=== PATIENT | male | born 1945 | race Caucasian/White ===

== ENCOUNTER → 2016-09-04 | Outpatient (CLI) | payer OTHER ==
[~2016-09-04] MED LIST: LTR510 PO; NXM/40 PO; OXYC-57 PO
--- NOTE | 2016-09-04 11:15 | DIAGNOSTIC IMAGING REPORT ---
PET/CT HISTORY: Lymphoma LYMPHOMA TECHNIQUE: PET/CT was performed from the base of the skull through the pelvis following the intravenous administration of 15.4 mCi of F18-FDG. Non-contrast CT imaging was performed over the same range without breath-hold for attenuation correction of PET images and anatomic correlation, but not for primary interpretation as it is not of standard diagnostic quality. CT DOSE: 847.81 mGycm COMPARISON: None. FINDINGS: HEAD AND NECK: Several metabolically active nodes are present in the low cervical chains bilaterally. There is a 1 cm metabolically active node with SUV of 2.9 posterior to the right sternocleidomastoid musculature. Several smaller nodes are present in the mid to lower cervical chains bilaterally. A 12 mm nodule lower aspect of the right cervical chain has SUVs of up to 2.1. Smaller metabolically active nodes are present in the mid cervical chains bilaterally. Physiologic activity is identified within the salivary gland regions. CHEST: 12 mm metabolically active nodule right aortopulmonary window avid SUV of 2.1. Moderate bilateral axillary adenopathy. Maximum SUV in the left axillary region is 3.9 with 3.5 noted on the right. Maximum atiya dimension of the left axillary region is 2.0 cm with 1.8 cm on the right. Metabolically active nodes in the low axillary regions are also present. There is physiologic activity within the myocardium. ABDOMEN/PELVIS: Physiologic activity within liver spleen and pancreas. No significant retroperitoneal metabolically active atiya pathology. Bowel pattern is nonobstructive. Moderate adenopathy of the low right as well as left iliac chains. SUV characteristics of the right of 3.9 maximum and on the left 4.4 physiologic activity is identified within the urinary bladder. Inguinal regions show metabolic activity noted characteristics bilaterally. These are considered significant. On The right, metabolically active nodes measure to 2.5 cm. 2.6 cm nodes are identified on the left. MUSCULOSKELETAL: There is no FDG-avid or destructive bone lesion. IMPRESSION: 1. Findings consistent with metabolically active adenopathy involving the soft tissue neck, chest, axillary regions, low pelvic, and inguinal regions. 2. The appearance is consistent with that of diffuse metastatic disease. Electronically signed by: Triston Estrada M.D. 09/04/2016 11:13 AM Dictated Date/Time: 09/04/2016 11:01 AM
== END | disposition home or self-care (01) ==
LOC: C.PET 08:05
PROVIDERS: ATTEND Internal Medicine Hematology & Oncology
DX: C85.90 Non-Hodgkin lymphoma, unspecified, unspecified site (principal)

== ENCOUNTER → 2017-01-09 | Outpatient (CLI) | payer OTHER ==
[~2017-01-09] MED LIST changes: +OPTIRAY 320 IV PRN
--- NOTE | 2017-01-09 13:15 | DIAGNOSTIC IMAGING REPORT ---
CT SCAN OF THE CHEST WITH IV CONTRAST CLINICAL HISTORY: Lymphoma. COMPARISON STUDY: Chest x-ray dated 07/29/2010. PET/CT dated 09/04/2016. TECHNIQUE: Following the IV administration of 93 cc of Optiray 320, CT scan of the thorax was performed from the thoracic inlet to the upper abdomen. Images are reviewed in the axial, sagittal, and coronal planes. IV contrast was administered without complication. A dose lowering technique was utilized adhering to the principles of ALARA. CT DOSE: 1126.33 mGy.cm FINDINGS: Thyroid: Imaged portions of the thyroid gland are normal in size and attenuation. Thoracic aorta: There is mild atherosclerotic calcification of the thoracic aorta, which is normal in caliber and demonstrates standard 3-vessel arch anatomy. No dissection is seen. Heart: The heart is top normal in size and without pericardial effusion. The coronary arteries are densely calcified. The pulmonary trunk is normal in caliber. The pulmonary vessels are not well opacified. Lungs and pleural spaces: Evaluation of the lung parenchyma is significantly degraded by respiratory motion artifact. No airspace consolidation is seen typical for pneumonia. Trace pleural effusions are identified. Linear atelectasis versus scarring is present at the lung bases Peter the trachea and central airways are clear. Mediastinum: A mildly enlarged right paratracheal node is seen on image #110. This is almost completely fatty replaced and measures 1.2 cm in short axis. [place]: Clear. Axillae: Mildly enlarged bilateral axillary and subpectoral lymph nodes are similar to 09/04/2016 examination. The largest on the left as seen on image #119 and measures 2.2 x 1.7 cm. The largest on the right is subpectoral in location and measures 2.3 x 1.4 cm. Large nodes are seen but these are almost completely fatty replaced. Upper abdomen: There is a tiny hiatal hernia. A right upper pole renal cyst is partially imaged. The liver demonstrates diminished attenuation suggesting hepatic steatosis. The spleen is normal in size. Skeletal structures: The skeletal structures are osteopenic. No lytic or blastic bony lesions are seen. Advanced arthritic change is present in both shoulders. Calcified joint bodies are noted. There are numerous subacute right-sided rib fractures which are new from 09/04/2016. Degenerative change and hyperkyphosis are noted in the thoracic spine. Mild compression deformities are seen in the upper thoracic region. IMPRESSION: 1. No progressive adenopathy is identified in the thorax. 2. Mildly enlarged axillary and subpectoral lymph nodes as well as a mildly enlarged mediastinal lymph node have not appreciably changed from the 09/04/2016 PET examination. 3. Trace pleural effusions are identified. No airspace consolidation is seen typical for pneumonia. 4. There are numerous subacute right-sided rib fractures. These are new from 09/04/2016. 5. Additional findings as above. Electronically signed by: Irineo Vargas M.D. 01/09/2017 1:14 PM Dictated Date/Time: 01/09/2017 1:05 PM
--- NOTE | 2017-01-09 13:31 | DIAGNOSTIC IMAGING REPORT ---
ABD/PELVIS IV AND ORAL CONT HISTORY: [address] years-old Male CT lymphoma follow-up study. Subsequent treatment strategy. COMPARISON: CT chest of same day, PET/CT 09/04/2016. TECHNIQUE: Multiple axial CT images of the abdomen and pelvis was obtained following the intravenous administration of 93 mL Optiray 320. Oral contrast was also used. A dose lowering technique was used consistent with the principals of ALARA. FINDINGS: Subsegmental bibasilar atelectasis and/or scarring is noted, partially obscured by respiratory motion. There is no pneumoperitoneum identified. The imaged inferior cardiac chambers are moderately enlarged with coronary arterial calcifications. Mitral annular calcifications also noted. Nonspecific 5 mm low attenuating lesion is noted within the anterior right hepatic lobe on image 23 of the axial series which is unchanged from comparison and did not appear to be FDG avid, however may be below resolution in size for PET. Suggest a cyst or hemangioma. Spleen is unremarkable without stone [place]. There is mild to moderate pancreatic atrophy. Gallbladder is unremarkable. Probable cysts of the right kidney are noted, largest of which measures 3.5 cm. There is mild dilation or stranding stranding involving the mid left ureter without obstructing stone or mass is identified. Ureters are also noted in a somewhat medial course Smaller changes are seen in the right. Urinary bladder is unremarkable. Small fat filled left inguinal hernia noted. There are multiple phleboliths within the pelvis. Multiple enlarged periaortic, pericaval, iliac chain, pelvic sidewall and inguinal lymph nodes are present. Index right common iliac lymph node on image 271 measures 2.8 x 1.6 cm, previously measuring 2.5 x 1.5 cm. Index conglomerate right pelvic sidewall adenopathy on image 349 measures 5.5 x 1.9 cm, previously measuring 5.9 x 1.9 cm. Index right inguinal lymph node on image 440 measures 3.1 x 1.8 cm, previously 3.0 x 1.8 cm. These findings suggest stable disease. There is a small sliding-type hiatal hernia. There is no bowel obstruction. Sigmoid colon is tortuous. The appendix is air-filled and appears noninflamed. Soft tissues are unremarkable. The bones are mildly demineralized. Prior posterior decompression with interbody hope and screw fusion at L4-S1 with discectomy changes. No suspicious lytic or blastic bony lesions identified. IMPRESSION: 1. Persistent bulky periaortic, pericaval, iliac chain, pelvic sidewall and inguinal adenopathy redemonstrated with several index lymph nodes measured as above demonstrating no significant change from comparison PET/CT 09/04/2016 suggesting stable disease. 2. Mild prominence with surrounding inflammatory stranding surrounds the mid ureters in a symmetric fashion without obstructing stone or mass identified. Ureters are also somewhat medialized without sandhya hydronephrosis. These findings may reflect post-therapeutic changes with retroperitoneal fibrosis also in the differential. 3. No splenomegaly or suspicious osseous lesions identified. The above report was generated using voice recognition software. It may contain grammatical, syntax or spelling errors. Electronically signed by: Yoan Carrasco M.D. 01/09/2017 1:29 PM Dictated Date/Time: 01/09/2017 1:04 PM
== END | disposition home or self-care (01) ==
LOC: C.CTS 11:46
PROVIDERS: ATTEND Internal Medicine Hematology & Oncology
DX: C81.74 Other Hodgkin lymphoma, lymph nodes of axilla and upper limb (principal)

== ENCOUNTER → 2017-09-10 | Outpatient (CLI) | payer OTHER ==
[~2017-09-10] MED LIST changes: -OPTIRAY 320 IV PRN
--- NOTE | 2017-09-10 12:53 | DIAGNOSTIC IMAGING REPORT ---
PET/CT HISTORY: LYMPHOMA TECHNIQUE: PET/CT was performed from the base of the skull through the pelvis following the intravenous administration of 12.2 mCi of F18-FDG. Non-contrast CT imaging was performed over the same range without breath-hold for attenuation correction of PET images and anatomic correlation, but not for primary interpretation as it is not of standard diagnostic quality. CT DOSE: COMPARISON: PET CT 09/04/2016. Chest abdomen and pelvis CT 01/09/2017. FINDINGS: HEAD AND NECK: There again noted multiple mildly enlarged and FDG avid cervical lymph nodes. These are similar in size and number compared the prior study. However, these demonstrate slight increased FDG uptake. For comparative purposes an 11 mm right cervical lymph node demonstrates an SUV max of 3.4, previously demonstrating an SUV max of 2.0. CHEST: Multiple enlarged mediastinal, hilar, and axillary lymph nodes are similar in size. However, these demonstrate increased FDG uptake. The dominant 3.0 x 2.5 cm left axillary lymph node demonstrates an SUV max of 4.0, previously demonstrating an SUV max of 2.6. No suspicious pulmonary nodules. ABDOMEN/PELVIS: Below the diaphragm, tracer is distributed physiologically in the gastrointestinal and genitourinary tracts. Multiple enlarged retroperitoneal, pelvic, and inguinal lymph nodes are again noted. These are similar in size but the majorities demonstrate increased FDG uptake. Dominant right inguinal lymph node continues to measure 3.0 x 1.7 cm. However, this demonstrates an SUV max of 4.6, previously demonstrating an SUV max of 3.6. The dominant right pelvic sidewall lymph node is similar in size but also demonstrates increased FDG uptake measuring up to 5.8, previously measuring 5.6. MUSCULOSKELETAL: There is no FDG-avid or destructive bone lesion. IMPRESSION: Lymphadenopathy within the neck, chest, abdomen, and pelvis as described above which is overall similar in size compared to the prior study. However, this demonstrates increased FDG uptake consistent with worsening disease. Electronically signed by: Gelacio Galindo M.D. 09/10/2017 12:51 PM Dictated Date/Time: 09/10/2017 12:27 PM
== END | disposition home or self-care (01) ==
LOC: C.PET 08:27
PROVIDERS: ATTEND Internal Medicine Hematology & Oncology
DX: C81.74 Other Hodgkin lymphoma, lymph nodes of axilla and upper limb (principal)

== ENCOUNTER 2019-06-26 11:05 | Inpatient (IN) ==
--- NOTE | 2019-06-26 11:51 | XRay Report ---
XR chest 1V portable CLINICAL HISTORY: Dyspnea dyspnea COMPARISON STUDY: 07/29/2010 FINDINGS: Moderate increase in cardiac size. Prominent pulmonary vasculature. IMPRESSION: Developing congestive heart failure ACT 112: Negative or not required by law. The above report was generated using voice recognition software. It may contain grammatical, syntax or spelling errors. Electronically signed by: Triston Estrada M.D. 06/26/2019 11:50 AM
[2019-06-26 12:06] LABS: Basophils # (auto) 0.01 K/uL (0-0.2); Basophils % (auto) 0.2 %; Eosinophils # (auto) 0.11 K/uL (0-0.5); Eosinophils % (auto) 1.7 %; Immature Granulocytes # (auto) 0.03 K/uL (0.00-0.02); Immature Granulocytes % (auto) 0.5 %; Lymphocytes # (auto) 0.98 K/uL (1.2-3.4); Lymphocytes % (auto) 15.4 %; Mean Corpuscular Hgb Conc 36.4 g/dL (32-36); Mean Corpuscular Volume 90.7 fL (80-100); Monocytes # (auto) 0.78 K/uL (0.11-0.59); Monocytes % (auto) 12.3 %; Neutrophils # (auto) 4.44 K/uL (1.4-6.5); Neutrophils % (auto) 69.9 %; Platelet Count 293 K/uL (130-400); RDW Coefficient of Variation 14.8 % (11.5-14.5); RDW Standard Deviation 48.8 fL (36.4-46.3); Red Blood Count 3.64 M/uL (4.7-6.1); White Blood Count 6.35 K/uL (4.8-10.8)
[2019-06-26 12:16] LABS: INR 1.1 (0.9-1.1); Partial Thromboplastin Ratio 1.1; Partial Thromboplastin Time 29.6 Seconds (21.0-31.0); Prothrombin Time 11.2 Seconds (9.0-12.0)
[2019-06-26 12:27] LABS: Alanine Aminotransferase 21 U/L (12-78); Albumin Level 2.7 gm/dl (3.4-5.0); BUN Creatinine Ratio 12.3 (10-20); Blood Urea Nitrogen 11 mg/dl (7-18); Calcium 8.2 mg/dl (8.5-10.1); Carbon Dioxide 24 mmol/L (21-32); Chloride 96 mmol/L (98-107); Creatinine Clr Calc Pharmacy 75.1 ml/min; Est GFR (African American) 98.5; Glucose 92 mg/dl (70-99)
[2019-06-26 12:28] LABS: Albumin Globulin Ratio 0.4 (0.9-2); Alkaline Phosphatase 54 U/L (45-117); Bilirubin,Total 0.9 mg/dl (0.2-1); Total Protein 9.7 gm/dl (6.4-8.2); Troponin I < 0.015 ng/ml (0-0.045)
[2019-06-26 12:41] LABS: Appearance Urine Clear (Clear); Bilirubin Urine Negative (Negative); Blood Urine Negative (Negative); Color Urine Dark Yellow; Glucose Urine UA Negative (Negative); Ketones Urine Negative (Negative); Leukocyte Esterase Urine Negative (Negative); Nitrite Urine Negative (Negative); Protein Urine Negative (Negative); Specific Gravity Urine 1.015 (1.000-1.030); Urobilinogen Urine Negative (Negative)
[2019-06-26 13:12] LABS: Aspartate Aminotransferase 24 U/L (15-37); Potassium 4.4 mmol/L (3.5-5.1); Sodium 126 mmol/L (136-145)
--- NOTE | 2019-06-26 13:42 | History & Physical Report ---
Date of Service June 26, 2019 Assessment & Plan (1) Fungal pneumonia: Patient presents with history of approximately 4-6 weeks of cough, As per pulmonary clinic note, patient has been having chronic cough symptoms, recurrent transient infiltrate noted on chest imaging since fall [address] chest shows bilateral pneumonia/lung consolidation with mucous plugging, left bronchus narrowing Sputum culture positive for zygomete Sent for inpatient admission for further treatment possible IV antifungal and requirement for bronchoscopy Patient will need bronchoscopy with a repeat sputum culture to confirm diagnosis Will be admitted to medical telemetry Pulmonology consulted Patient will be ordered n.p.o. past midnight Infectious disease consulted for recommendation for antifungal-patient will be started on amphotericin Consult pharmacy to dose And will need telemetry monitoring Daily EKG to assess QTC B-cell lymphoma: Follows with hematology oncology Dr. Mora Has not received any chemo treatment Current blood work stable Hypertension: Continue Norvasc CODE STATUS: DNR/DNI: Discussed with patient and his , feels strongly against life support and resuscitation DVT prophylaxis: SCD and teds, patient is encouraged to ambulate Disposition: Admit to medical telemetry unit, Expected to be discharged home when medically stable History of Present Illness Chief Complaint: Cough for last 2 months Primary Care Provider: Charli Flowers This is a 73-year-old male with past medical history of hypertension, COPD, who has been followed at [facility] pulmonology clinic for ongoing productive cough which has been going on since April last year Patient was treated with multiple antibiotics including Levaquin, with no improvement or symptoms Had CT chest without contrast done on 06/13/2019: Impression : Limited exam without IV contrast. Bilateral peribronchial thickening and endobronchial mucous plugs. Large bilateral pulmonary consolidation involving the right middle and lower lobe and left lower lobe. Most likely pneumonia. Multiple scattered centrilobular groundglass nodules throughout the lungs most significantly in the lower lobes, favoring additional foci of infection. 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 Patient was asked to come to [facility] for hospital admission , will need IV antifungal and pulmonology/bronchoscopy evaluation Patient seen at bedside, denies of any shortness of breath, no orthopnea, has ongoing nonproductive cough, He does not feel sick, no recent weight change, no night sweat Has been dealing with nonproductive cough which started as common cold since April Did not had any fever chills in the past several months Patient is diagnosed with the B cell lymphoma, not had any chemo treatments Allergies Allergy/AdvReac Type Severity Reaction Status Date / Time No Known Allergies Allergy Unverified 06/26/19 13:59 Home Medications Home Medications Medication Instructions Recorded Confirmed Type albuterol sulfate [ProAir 1 inh INHALATION Q4H PRN 06/26/19 06/26/19 History RespiClick] amlodipine 5 mg PO BID 06/26/19 06/26/19 History fluticasone furoate-vilanterol 1 inh INHALATION BID 06/26/19 06/26/19 History [Breo Ellipta] Past Med/Surg History Medical History No pertinent past medical history Surgical History No pertinent past surgical history Family History Other Family history non-contributory Social History Preferred Language: Faroese Feels Safe at Home: Yes Smoking Status: Never smoker Review of Systems Review of Systems: All systems reviewed & are unremarkable except as noted in HPI & below Constitutional: no fever, no chills, no fatigue and no anorexia Respiratory: + cough, + chest congestion, + sputum production and + wheezing; no pain on inspiration and no pain with cough Physical Exam Constitutional: WD/WN, vitals as above + obese Eyes: PERRL, conjunctivae normal, anicteric sclerae ENMT: external ear and nose normal, oropharynx normal Neck: trachea midline, no thyromegaly Respiratory: normal respiratory effort and + cough Auscultation: + crackles, + rales, + rhonchi and + wheezes Cardiovascular: RRR, no murmur, no edema Gastrointestinal (Abdomen): normal bowel sounds, soft, nontender, no hepatosplenomegaly Musculoskeletal: no cyanosis or clubbing, extremities motor strength 5/5 Skin: no rashes, warm and dry Neurologic: PERRL, EOMI, accommodation nl, no face palsy, no dysarthria Psychiatric: A+Ox3, euthymic affect Results & Data Vital Signs (Past 12 Hours) Vital Signs Temp Pulse Resp BP Pulse Ox 06/26/19 13:00 82 22 143/74 H 95 06/26/19 12:51 81 21 147/81 H 96 06/26/19 12:30 84 21 147/81 H 93 06/26/19 12:28 95 06/26/19 12:19 84 19 160/75 H 93 06/26/19 11:21 36.3 C L 88 20 143/84 H 93
[2019-06-26] MEDS ORDERED: SODIUM CHLORIDE 0.9% 1000ML 1,000 ML IV SCH (15:00)
[2019-06-26] MEDS ORDERED: [UNRECOGNIZED DRUG - OTHER] IV SCH (15:03)
[2019-06-26] MEDS ORDERED: IOVERSOL 100ml IV PRN (15:33)
--- NOTE | 2019-06-26 15:41 | CT Scan Report ---
CT chest w con CT DOSE: 459.61 mGy.cm HISTORY: Pneumonia bilateral pneumonia TECHNIQUE: Multiaxial CT images of the chest were performed following the intravenous administration of contrast. A dose lowering technique was utilized adhering to the principles of ALARA. COMPARISON: 02/14/2018 FINDINGS: Scattered adenopathy unchanged from the prior exam. This is consistent with the patient's k nown history of lymphoma. Bulk of the nodes are in the mid to high axillary regions bilaterally. Several smaller nodes are identified in the mid mediastinal region also unchanged. There are findings of bibasilar parenchymal infiltrative changes. Heart is moderately enlarged. Pulmo nary vasculature is prominent. IMPRESSION: 1. Bibasilar parenchymal infiltrates moderately progressive from the prior study.. 2. Mild increase in cardiac size as well as prominence of pulmonary vasculature consistent with pulmo nary vascular congestion. 3. Adenopathy within the axillary and mediastinal regions considered generally stable from the prior exam. ACT 112: Negative or not required by law. The above report was generated using voice recognition software. It may contain grammatical, syntax or spelling errors. Electronically signed by: Triston Estrada M.D. 06/26/2019 3:40 PM
[2019-06-26] MEDS ORDERED: POLYETHYLENE (MIRALAX) 17 GM PACK PO PRN (15:53)
[2019-06-26] MEDS ORDERED: ACETAMINOPHEN 325 MG TAB PO PRN (15:53)
[2019-06-26] MEDS ORDERED: ALUMINUM/MAGNESIUM SUSP 30 ML UDC PO PRN (15:53)
[2019-06-26] MEDS ORDERED: MAGNESIUM HYDROXIDE SUSP 30 ML UDC PO PRN (15:53)
[2019-06-26] MEDS ORDERED: DEXTROSE 5% IV ONE (16:00)
[2019-06-26] MEDS ORDERED: AMBISOME IV ONE (16:00)
[2019-06-26] MEDS: ALBUT/IPRATROP 3MG/0.5MG NEB 3 ML VIAL NEB SCH ×3 (16:13→22:57)
[2019-06-26] MEDS ORDERED: ALBUTEROL HFA 8 GM INHALER INH PRN (16:23)
--- NOTE | 2019-06-26 16:34 | Pulmonary Consultation ---
Date of Consultation June 26, 2019 Assessment & Plan (1) Mucus plugging of bronchi: CT scan completed today at [facility] does not show any significant mucus plugging Patient denies any significant sputum production Would order flutter valve and Mucinex and encourage ambulation Repeat chest x-ray in the morning Follow conservatively No indication for bronchoscopy at this time but will have Dr. Jackson see the patient in the morning (2) Fungal pneumonia: Patient contacted yesterday by [facility] with sputum growing zygomete on preliminary culture Patient admitted for IV antibiotics Dr. Renee has been consulted * Patient to be empirically started on amphotericin (3) Asthma: Patient oxygenating well on room air No bronchospasm on exam Patient with no acute complaints Continue with Brio Vickie Follow-up with [facility] pulmonology on discharge Thank you for including us in the care of this patient. Please refer to Dr. Jackson's addendum and corrections for further recommendations We will follow along with you at this time Supervising Physician Co-Signing Physician Notes Imaging reviewed. Case discussed with NOAH duffy. Patient's current CT scan does not demonstrate any significant opacity or significant mucus plugging which would necessitate bronchoscopy. I do not have access to the patient's outpatient fungal cultures but I am not suspicious the patient has a fungal pneumonia I would definitely not recommend treatment with amphotericin. I am not sure the patient meets criteria for inpatient admission at this point time. He has been seen by the stockroom inventory clerk previously apparently through the [employer] system and continued outpatient follow-up with them is recommended. History of Present Illness Attending Physician: Di Aguirre MD History of Present Illness Attending: Dr. Jackson Patient with PMH of lymphoma following with Dr. Loredo, mild persistent asthma on Breo Ellipta, Hx CAD with stent 20 years ago, htn on Amlodipine, GERD, chronic cough, hyperlipidemia. Patient follows with [facility] Pulmonology and was most recently seen by CAITLIN Newman. Mr. Hansen was last seen in the OP clinic 06/11/[address] Chest revealing transient RML/RLL infiltrate as well as some mucous plugging. Patient was started on Levofloxacin 750mg daily for 10 days and a sputum culture was collected. Viral panel was negative and patient was scheduled for video swallow exam. He demonstrated some aspiration of the barium and was being scheduled for bronchoscopy in [place] with Dr. Silvestre. Yesterday SHAILESH He was called with a critical lab value stating that culture grew Zygomete with preliminary read. SHAILESH He requested an urgent ID consult. Dr. Terri Pierce MD providfed the following response to the inquiry: "If patient is stable it is unlikely that he has mucormycosis as it is a rapidly progressive infection .The pneumonia can cause infarction and necrosis and the infection can spread and cause massive hemoptysis.Dignosis is by organism in tissue by histopathology and culture confirmation .Of note agents of mucormycosis can colonize the airways and can be contaminants.Isolation of this organism does not always imply infection .The treatment is surgical debridement" The patient was then contacted and told to report to [facility] [place] for IV abx and further evaluation. The patient agreed to be admitted to [facility] but did not want to travel to [place] as he lives in [place], [place]. Aside form the patients chronic non-productive cough, the patient has no complaints. He has never been a smoker. He can ambulate more than 100 ft on a flat surface without difficulty, has no difficulty with climbing stairs. He served in the [employer] from 1965 to 1969 in [place] and then retired from the [employer]. He then retired from the [employer] and has been retired for several years. 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 The patient denies thromboembolic disease, is in remission from Lymphoma, has no fever or chills, denies chest pain, no back pain, no LE edema. He has no acute complaints. Vaccination history includes: Pneumococcal vaccination of 03/21/2017 He denies any other vaccination since being in the Allergies Allergy/AdvReac Type Severity Reaction Status Date / Time No Known Allergies Allergy Unverified 06/26/19 13:59 Home Medications Home Medications Medication Instructions Recorded Confirmed Type albuterol sulfate [ProAir 1 inh INHALATION Q4H PRN 06/26/19 06/26/19 History RespiClick] amlodipine 5 mg PO BID 06/26/19 06/26/19 History fluticasone furoate-vilanterol 1 inh INHALATION BID 06/26/19 06/26/19 History [Patric Johnston] Patient History Medical History (Updated 06/26/19 @ 16:53 by Irineo Duffy PA-C) Asthma Mucus plugging of bronchi No pertinent past medical history Surgical History No pertinent past surgical history Family History Other Family history non-contributory Social History Preferred Language: Welsh Feels Safe at Home: Yes Smoking Status: Never smoker Review of Systems Review of Systems: All systems reviewed & are unremarkable except as noted in HPI & below Physical Exam Physical Exam: GENERAL : No acute distress EYES: No icterus, gaze conjugate NOSE: No evidence of epistaxis MOUTH: No lesions or candidiasis NECK: Supple LUNGS: CTA B/L, no wheezes, rales or rhonchi HEART: Regular, rate controlled ABDOMEN: Soft, NT, ND, BS Present EXTREMITIES: No LE edema, pedal pulses intact NEURO: A&OX3 Results & Data ([facility]) Vital Signs (Past 12 Hours) Vital Signs Temp Pulse Pulse Resp BP BP Pulse Ox 06/26/19 16:14 86 18 91 06/26/19 15:48 36.5 C 84 20 167/91 H 96 06/26/19 15:07 80 20 179/81 H 97 06/26/19 13:30 78 19 154/73 H 95 06/26/19 13:00 82 22 143/74 H 95 06/26/19 12:51 81 21 147/81 H 96 06/26/19 12:30 84 21 147/81 H 93 06/26/19 12:28 95 06/26/19 12:19 84 19 160/75 H 93 06/26/19 11:21 36.3 C L 88 20 143/84 H 93 Laboratory Results 06/26/19 11:52 06/26/19 11:52 INR 1.1 (0.9-1.1) 06/26/19 11:[address] chest w con 06/26/2019 CT DOSE: 459.61 mGy.cm HISTORY: Pneumonia bilateral pneumonia TECHNIQUE: Multiaxial CT images of the chest were performed following the intravenous administration of contrast. A dose lowering technique was utilized adhering to the principles of ALARA. COMPARISON: 02/14/2018 FINDINGS: Scattered adenopathy unchanged from the prior exam. This is consistent with the patient's known history of lymphoma. Bulk of the nodes are in the mid to high axillary regions bilaterally. Several smaller nodes are identified in the mid mediastinal region also unchanged. There are findings of bibasilar parenchymal infiltrative changes. Heart is moderately enlarged. Pulmonary vasculature is prominent. IMPRESSION: 1. Bibasilar parenchymal infiltrates moderately progressive from the prior study.. 2. Mild increase in cardiac size as well as prominence of pulmonary vasculature consistent with pulmonary vascular congestion. 3. Adenopathy within the axillary and mediastinal regions considered generally stable from the prior exam. ACT 112: Negative or not required by law. The above report was generated using voice recognition software. It may contain grammatical, syntax or spelling errors. Electronically signed by: Triston Estrada M.D. 06/26/2019 3:40 PM FL video swallow 06/24/2019 HISTORY: SUSPECTED ASPIRATION PNEUMONIA TECHNIQUE: Video fluoroscopic evaluation of swallowing was performed in the AP and lateral projections by the speech pathology staff. The patient is fed nectar-thick and thin liquid barium, a barium coated wafer, and barium pudding. FLUOROSCOPY TIME: 2.4 minutes. A cine loop submitted. COMPARISON STUDY: None. FINDINGS: There is normal hyoid excursion and epiglottic deflection. A few episodes of aspiration with the thin liquid barium. No aspiration identified the nectar thick liquid barium, barium pudding, or barium coated cracker. Mild hypopharyngeal residue with the thicker barium consistencies. IMPRESSION: 1. A few episodes of aspiration with the thin liquid barium only. 2. Please see the speech pathologist report for detailed findings and recommendations. ACT 112: Negative or not required by law. Electronically signed by: Gelacio Galindo M.D. 06/24/2019 2:28 PM PG Care Time/CCT Total # of Minutes Spent Total Time Spent with Patient: Total time spent is greater than 50% in coordination of care (as documented) at patient's floor/unit and/or counseling patient: [place] [address] Initial Inpt Care Lvl 3 Patient Type New Medical Decision Making Low Complexity Diagnoses Mucus plugging of bronchi J98.09 Fungal pneumonia B49; J17 Asthma J45.909
--- NOTE | 2019-06-26 17:26 | Hospitalist Progress Note ---
Date of Service June 26, 2019 Assessment & Plan Admission and Anticipated Discharge Date Admission Date: June 26, 2019 Subjective Attending addendum: Appreciate input from pulmonology, CT chest with contrast done today shows no evidence of mucous plugging, patient does not need any bronchoscopy evaluation Discussed with Dr. Jcakson, patient does not appear to have active fungal infection, Does not have any fever chills normal white count Recommends to discontinue amphotericin B-/not need any antifungal treatment Continue respiratory support/pulmonary toileting Will need outpatient follow-up with pulmonology for elective bronchoscopy Di Aguirre MD Results & Data ([facility]) Vital Signs (Past 12 Hours) Vital Signs Temp Pulse Pulse Resp BP BP Pulse Ox 06/26/19 16:14 86 18 91 06/26/19 15:48 36.5 C 84 20 167/91 H 96 06/26/19 15:07 80 20 179/81 H 97 06/26/19 13:30 78 19 154/73 H 95 06/26/19 13:00 82 22 143/74 H 95 06/26/19 12:51 81 21 147/81 H 96 06/26/19 12:30 84 21 147/81 H 93 06/26/19 12:28 95 06/26/19 12:19 84 19 160/75 H 93 06/26/19 11:21 36.3 C L 88 20 143/84 H 93
--- NOTE | 2019-06-26 19:02 | Emergency Department Note ---
Entered by Vamsi Goode acting as a scribe for ED Provider Note CHIEF COMPLAINT: Cough HISTORY OF PRESENT ILLNESS: The patient is a 73 year old male who presents to the Emergency Room with complaints of an intermittent cough starting a couple weeks ago. The patient states he has been fighting a cold for two months. He states he has been having a lot of phlegm. He states he was seen in the [facility] clinic last week and had a culture done of his sputum. He notes his sputum was yellow. He states he was told he had a viral infection and needed to go to the ED. He states he has been having SOB for a while. He notes he had a swallowing study done recently at [facility]. He states he has not brought up a lot of phlegm in a while. He states he is not taking antibiotics right now. Pt denies LOC, headache, fevers, chills, diaphoresis, leg swelling, visual changes, neck pain, chest pain, breathing difficulties, nausea, vomiting, abdominal pain, back pain, melena, hematochezia, urinary symptoms, numbness, weakness, lymphadenopathy, rash, or other complaints. REVIEW OF SYSTEMS: See HPI for pertinent positives and negatives. A total of ten systems were reviewed and were otherwise negative. PMHx/PSHx: No pertinent past medical history SOCIAL HISTORY: Patient lives at home. PHYSICAL EXAM: GENERAL: Awake, alert, well-appearing, in no distress HENT: Normocephalic, atraumatic. Oropharynx unremarkable. EYES: PERRL. Normal conjunctiva. Sclera non-icteric. NECK: Inspection normal. Non-tender. Supple. No nuchal rigidity. FROM. No masses. RESPIRATORY: Clear to auscultation. No wheezes. Normal respiratory effort. Rales and rhonchi on the right. CARDIAC: Normal rate. Normal rhythm. No murmurs. No rubs. Extremities warm and well perfused. Pulses equal. No JVD. GI: Soft, non-distended. No tenderness to palpation. No rebound or guarding. No masses. RECTAL: Deferred. MUSCULOSKELETAL: Atraumatic. Chest examination reveals no tenderness. The back is symmetrical on inspection without obvious abnormality. There is no CVA tenderness to palpation. No joint edema. LOWER EXTREMITIES: Calves are equal size bilaterally and non-tender. Trace edema. No discoloration. NEURO: Normal sensorium. No sensory or motor deficits noted. SKIN: No rash or jaundice noted. EMERGENCY DEPARTMENT COURSE: 1157: Past medical records reviewed. The patient was evaluated in room B9, and a complete history and physical examination were performed. 1211: [facility] records were reviewed. The sputum culture is growing zygomyces. 1214: I spoke with Dr. Timothy Orellana. We will notify her once we do the admission. 1331: I am trying to reach infectious disease. 1339: I discussed the patient's case with Dr. Timothy Orellana. She will evaluate the patient for further management. She states if we are unable to get in touch with Dr. Renee here, she will consult with infectious disease in [place]. 1408: I reevaluated the patient. Dr. Aguirre is in the room. 1420: I spoke with Dr. Renee - Infectious Disease. He recommends starting the patient with amphotericin. MEDICAL DECISION MAKING: The patient presented to the emergency department because of pulmonary symptoms. He had an outpatient culture that was concerning for a fungal infection. Differential includes fungal pneumonia, fungal colonization, bacterial pneumonia, CHF, bronchitis, as well as others. Hemodynamically the patient was stable. He notes months of symptoms that did not respond to antibiotics. His culture does reveal a fungal infection and chest x-ray does show some increased markings in the right base. This is concerning that he may be dealing with a fungal pneumonia. I discussed the case with the [facility] hospitalist Dr. Aguirre as well as infectious disease Dr. Renee. Given the culture results he will need amphotericin and pulmonary consultation. Pharmacy was involved with this. The patient was evaluated by internal medicine in the ER and admitted for further management. IMPRESSION: Fungal pneumonia PLAN: Admitted The scribe's documentation has been prepared under my direction and personally reviewed by me in its entirety. I confirm that the note above accurately reflect s all work, treatment, procedures, and medical decision making performed by me. Impression & Plan Fungal pneumonia Past Med/Surg History Medical History (Updated 06/26/19 @ 16:53 by Irineo Duffy PA-C) Asthma Mucus plugging of bronchi No pertinent past medical history Surgical History No pertinent past surgical history Family History Other Family history non-contributory Social History Preferred Language: Ecuadorean Communication Ability: Effective Millinery Copyist Required: No Beliefs That Will Affect Care: None Current Living Situation: Spouse Other Information That Helps Us Care for You: No Feels Safe at Home: Yes Safety Concerns: Feels Safe At This Time Smoking Status: Never smoker Hx Alcohol Use: Yes Alcohol type: beer Hx Substance Use: No Results & Data Vital Signs Vital Signs - 24 hr 06/26/19 11:21 06/26/19 12:19 06/26/19 12:28 Temperature 36.3 C L Temperature Source Oral Pulse Rate 88 84 Pulse Rate from SpO2 Sensor 84 Respiratory Rate 20 19 Respiratory Effort / Characteristics Non-Labored Spontaneous Respiratory Depth Normal Blood Pressure 143/84 H 160/75 H Blood Pressure Mean 103 111 Blood Pressure Position Sitting Pulse Oximetry 93 93 95 Oxygen Delivery Method Room Air Room Air Sepsis Recent Fever Within 48 Hours No Sepsis New/Unexplained Change in Mental Status No Sepsis Action Taken by Nursing No Action Required 06/26/19 12:30 06/26/19 12:51 06/26/19 13:00 Temperature Temperature Source Pulse Rate 84 81 82 Pulse Rate from SpO2 Sensor 84 81 82 Respiratory Rate 21 21 22 Respiratory Effort / Characteristics Respiratory Depth Blood Pressure 147/81 H 147/81 H 143/74 H Blood Pressure Mean 105 105 112 Blood Pressure Position Pulse Oximetry 93 96 95 Oxygen Delivery Method Sepsis Recent Fever Within 48 Hours Sepsis New/Unexplained Change in Mental Status Sepsis Action Taken by Nursing 06/26/19 13:30 Temperature Temperature Source Pulse Rate 78 Pulse Rate from SpO2 Sensor 79 Respiratory Rate 19 Respiratory Effort / Characteristics Respiratory Depth Blood Pressure 154/73 H Blood Pressure Mean 108 Blood Pressure Position Pulse Oximetry 95 Oxygen Delivery Method Sepsis Recent Fever Within 48 Hours Sepsis New/Unexplained Change in Mental Status Sepsis Action Taken by Prison Medications Current Medication List: was personally reviewed by me Laboratory Data Attestation: I reviewed the patient's lab results. Result diagrams: 06/26/19 11:52 06/26/19 11:52 Lab Results 06/26/19 06/26/19 06/26/19 Range/Units 11:52 11:52 11:52 WBC 6.35 (4.8-10.8) K/uL RBC 3.64 L (4.7-6.1) M/uL Hgb 12.0 L (14.0-18.0) g/dL Hct 33.0 L (42-52) % MCV 90.7 (80-100) fL MCH 33.0 (25-34) pg MCHC 36.4 H (32-36) g/dL RDW Std Deviation 48.8 H (36.4-46.3) fL RDW Coeff of Gucci 14.8 H (11.5-14.5) % Plt Count 293 (130-400) K/uL MPV 8.0 (7.4-10.4) fL Immature Gran % (Auto) 0.5 % Neut % (Auto) 69.9 % Lymph % (Auto) 15.4 % Rock % (Auto) 12.3 % Eos % (Auto) 1.7 % Baso % (Auto) 0.2 % Immature Gran # (Auto) 0.03 H (0.00-0.02) K/uL Neut # (Auto) 4.44 (1.4-6.5) K/uL Lymph # (Auto) 0.98 L (1.2-3.4) K/uL Rock # (Auto) 0.78 H (0.11-0.59) K/uL Eos # (Auto) 0.11 (0-0.5) K/uL Baso # (Auto) 0.01 (0-0.2) K/uL PT 11.2 (9.0-12.0) Seconds INR 1.1 (0.9-1.1) APTT 29.6 (21.0-31.0) Seconds PTT Ratio 1.1 Sodium 126 L (136-145) mmol/L Potassium 4.4 (3.5-5.1) mmol/L Chloride 96 L (98-107) mmol/L Carbon Dioxide 24 (21-32) mmol/L Anion Gap 6.0 (3-11) BUN 11 (7-18) mg/dl Creatinine 0.90 (0.6-1.4) mg/dl Est Cr Clr Drug Dosing 75.1 ml/min Est GFR ( Amer) 98.5 Est GFR (Non-Af Amer) 85.0 BUN/Creatinine Ratio 12.3 (10-20) Glucose 92 (70-99) mg/dl Calcium 8.2 L (8.5-10.1) mg/dl Total Bilirubin 0.9 (0.2-1) mg/dl AST 24 (15-37) U/L ALT 21 (12-78) U/L Alkaline Phosphatase 54 (45-117) U/L Troponin I < 0.015 (0-0.045) ng/ml Total Protein 9.7 H (6.4-8.2) gm/dl Albumin 2.7 L (3.4-5.0) gm/dl Globulin 7.0 H (2.5-4.0) gm/dl Albumin/Globulin Ratio 0.4 L (0.9-2) Urine Color Urine Appearance (Clear) Urine pH (4.5-7.5) Ur Specific [place] (1.000-1.030) Urine Protein (Negative) Urine Glucose (UA) (Negative) Urine Ketones (Negative) Urine Blood (Negative) Urine Nitrite (Negative) Urine Bilirubin (Negative) Urine Urobilinogen (Negative) Ur Leukocyte Esterase (Negative) 06/26/19 Range/Units 12:20 WBC (4.8-10.8) K/uL RBC (4.7-6.1) M/uL Hgb (14.0-18.0) g/dL Hct (42-52) % MCV (80-100) fL MCH (25-34) pg MCHC (32-36) g/dL RDW Std Deviation (36.4-46.3) fL RDW Coeff of Gucci (11.5-14.5) % Plt Count (130-400) K/uL MPV (7.4-10.4) fL Immature Gran % (Auto) % Neut % (Auto) % Lymph % (Auto) % Rock % (Auto) % Eos % (Auto) % Baso % (Auto) % Immature Gran # (Auto) (0.00-0.02) K/uL Neut # (Auto) (1.4-6.5) K/uL Lymph # (Auto) (1.2-3.4) K/uL Rock # (Auto) (0.11-0.59) K/uL Eos # (Auto) (0-0.5) K/uL Baso # (Auto) (0-0.2) K/uL PT (9.0-12.0) Seconds INR (0.9-1.1) APTT (21.0-31.0) Seconds PTT Ratio Sodium (136-145) mmol/L Potassium (3.5-5.1) mmol/L Chloride (98-107) mmol/L Carbon Dioxide (21-32) mmol/L Anion Gap (3-11) BUN (7-18) mg/dl Creatinine (0.6-1.4) mg/dl Est Cr Clr Drug Dosing ml/min Est GFR ( Amer) Est GFR (Non-Af Amer) BUN/Creatinine Ratio (10-20) Glucose (70-99) mg/dl Calcium (8.5-10.1) mg/dl Total Bilirubin (0.2-1) mg/dl AST (15-37) U/L ALT (12-78) U/L Alkaline Phosphatase (45-117) U/L Troponin I (0-0.045) ng/ml Total Protein (6.4-8.2) gm/dl Albumin (3.4-5.0) gm/dl Globulin (2.5-4.0) gm/dl Albumin/Globulin Ratio (0.9-2) Urine Color Dark Yellow Urine Appearance Clear (Clear) Urine pH 7.0 (4.5-7.5) Ur Specific [place] 1.015 (1.000-1.030) Urine Protein Negative (Negative) Urine Glucose (UA) Negative (Negative) Urine Ketones Negative (Negative) Urine Blood Negative (Negative) Urine Nitrite Negative (Negative) Urine Bilirubin Negative (Negative) Urine Urobilinogen Negative (Negative) Ur Leukocyte Esterase Negative (Negative) Administered Medications Albuterol (Duoneb) 3 ml NEB Q4R VERONIKA Stop: 07/26/19 14:59 Last Admin: 06/26/19 16:13 Dose: 3 ml Documented by: [id number] Sodium Chloride (Nss 1000ml) 1,000 mls @ 100 mls/hr IV .Q10H VERONIKA Stop: 06/27/19 00:59 Last Admin: 06/26/19 16:33 Dose: 100 mls/hr Documented by: [id number] Ioversol (Optiray 320 100ml) 94 ml IV ONCE PRN PRN Reason: Interaction Checking Stop: 06/30/19 15:32 Last Admin: 06/26/19 15:33 Dose: 94 ml Documented by: [id number] Discontinued Medications Amphotericin B 400 mg/ (Dextrose) 350 mls @ 125 mls/hr IV TODAY@1600 ONE; Pr otocol Stop: 06/26/19 18:47 Last Admin: 06/26/19 16:45 Dose: Not Given Documented by: [id number] Imaging Data Radiologist's Impression: Radiology results as stated below per my review and the radiologist's interpretation: XR chest 1V portable CLINICAL HISTORY: Dyspnea dyspnea COMPARISON STUDY: 07/29/2010 FINDINGS: Moderate increase in cardiac size. Prominent pulmonary vasculature. IMPRESSION: Developing congestive heart failure ACT 112: Negative or not required by law. The above report was generated using voice recognition software. It may contain grammatical, syntax or spelling errors. Electronically signed by: Triston Estrada M.D. 06/26/2019 11:50 AM ECG Data Attestation: I personally reviewed and interpreted this ECG as follows: Indication: + chest pain Rate (beats per minute): 81 Rhythm: normal sinus ECG Intervals/blocks: + Normal QRS ECG [place]: + Normal ECG ST segments: no ST depression and no ST elevation ECG Findings: no PACs and no PVCs Blood Pressure Blood Pressure Findings: Elevated blood pressure Blood Pressure Disposition: further management by hospitalist Discharge Plan Visit Data *Final* Discharge Date/Time: 06/26/19 14:52 Chief Complaint: Infection Stated Complaint: LUNG INFECTION ED Provider: Felix Viveros Discharge Problem: Fungal pneumonia Patient Disposition: Admitted As Inpatient Discharge Instructions Interventions: ED Discharge Assessment Last Done: 06/26/19 14:52 The scribe's documentation has been prepared under my direction and personally reviewed by me in its entirety. I confirm that the note above accurately reflects all work, treatment, procedures, and medical decision making performed by me.
[2019-06-26] MEDS: guaiFENesin 600 MG TABCR PO SCH ×2 (19:59→21:42)
[2019-06-26 20:36] LABS: BUN Creatinine Ratio 11.8 (10-20); Creatinine Clr Calc Pharmacy 64.7 ml/min; Est GFR (African American) 80.9; Est GFR (Non-African American) 69.8; Potassium 4.2 mmol/L (3.5-5.1)
[2019-06-26] MEDS: FLUTICASONE/VILANTEROL 200/25MCG 14 PUFFS/INHALER INH SCH (21:43)
[2019-06-26] MEDS: AMLODIPINE BESYLATE 5 MG TAB PO SCH (21:44)
[2019-06-27] MEDS: ALBUT/IPRATROP 3MG/0.5MG NEB 3 ML VIAL NEB SCH ×4 (03:26→15:25)
--- NOTE | 2019-06-27 06:03 | Electrocardiogram Report ---
Test Reason : Blood Pressure : / mmHG Vent. Rate : 081 BPM Atrial Rate : 081 BPM P-R Int : 134 ms QRS Dur : 080 ms QT Int : 378 ms P-R-T Axes : 014 058 059 degrees QTc Int : 439 ms Poor data quality, interpretation may be adversely affected Normal sinus rhythm Normal ECG When compared with ECG of 21-JUL-2010 10:12, Premature atrial complexes are no longer Present Confirmed by Rex Mason ([id number]) on 06/27/2019 6:03:01 AM Referred By: ED Confirmed By:Rex Mason
[2019-06-27 07:32] LABS: Hematocrit (blood only) 31.3 % (42-52); Mean Corpuscular Hemoglobin 32.3 pg (25-34); Mean Corpuscular Hgb Conc 35.1 g/dL (32-36); Mean Corpuscular Volume 91.8 fL (80-100); Mean Platelet Volume 8.1 fL (7.4-10.4); Platelet Count 239 K/uL (130-400); RDW Coefficient of Variation 15.2 % (11.5-14.5); RDW Standard Deviation 50.9 fL (36.4-46.3); Red Blood Count 3.41 M/uL (4.7-6.1); White Blood Count 4.96 K/uL (4.8-10.8)
[2019-06-27] MEDS: FLUTICASONE/VILANTEROL 200/25MCG 14 PUFFS/INHALER INH SCH (07:34)
[2019-06-27] MEDS: AMLODIPINE BESYLATE 5 MG TAB PO SCH (07:34)
[2019-06-27] MEDS: guaiFENesin 600 MG TABCR PO SCH (07:35)
[2019-06-27 08:13] LABS: BUN Creatinine Ratio 14.2 (10-20); Calcium 8.1 mg/dl (8.5-10.1); Creatinine Clr Calc Pharmacy 90.6 ml/min; Est GFR (African American) 105.6; Est GFR (Non-African American) 91.1; Potassium 3.4 mmol/L (3.5-5.1)
--- NOTE | 2019-06-27 08:29 | Pulmonology Progress Note ---
Date of Service June 27, 2019 Assessment & Plan (1) Abnormal CT scan of lung: Impression: 73-year-old male who is been followed at the [facility] pulmonary clinic quite extensively with a reported history of recurrent pneumonias although we do not have complete access to all of his outpatient imaging. He was directly admitted to the hospital due to concern about fungal pneumonia. I think it is extraordinarily unlikely that the patient actually has a fungal pneumonia. Again our database is incomplete as I do not have records to review from his outpatient evaluation. Nevertheless he does not have signs or symptoms concerning for an acute infectious process currently. He does have some findings of atelectasis/airspace opacity in the bilateral lower lobes which will require some radiographic surveillance and the patient certainly may be considered for an outpatient bronchoscopy at some point time however this does not appear to be an acute or inpatient related issue. Recommendations: 1. I think the patient can safely be dismissed from the hospital with outpatient pulmonary follow-up. He states he has reservations about going all the way to [place]. I would be happy to see him in our pulmonary clinic to arrange appropriate outpatient follow-up if needed. Otherwise he can continue to follow with [facility]. 2. 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 I think this is most likely a contaminant as the patient would be exceedingly unlikely to have an underlying fungal pneumonia in the absence of chronic immunosuppression or bone marrow transplant. 3. Abnormal CT scan: The patient will require some radiographic surveillance. Outpatient pulmonary function tests also should be conducted if they have not been performed previously. Could consider bronchoscopy once we were able to review all of his prior films to see whether or not there is a persistent pattern. The patient is eaten today and this cannot be conducted today and cannot be performed over the weekend in an elective patient therefore I do not see an indication to keep him in the hospital at this point time. 4. The patient can have an outpatient work-up for his cough. Again reflux and upper airway cough syndrome and some underlying pulmonary etiology related to his pulmonary infiltrates would all be on the differential. We will sign off. Feel free to contact us if we can be of additional assistance. (2) Cough: Subjective Patient seen and examined. EMR reviewed. Discussed with NOAH cantor yesterday and again today. The patient is sitting up eating breakfast. He reports no significant respiratory issues. He was able to cough up a small amount of phlegm. He does not report fevers chills or night sweats. No chest pain or palpitations. No shortness of breath. No lower extremity edema. He has not had any hemoptysis. He does not report any wheezing. Review of Systems Review of Systems: All systems reviewed & are unremarkable except as noted in HPI & below Results & Data ([facility]) Vital Signs (Past 12 Hours) Vital Signs Temp Pulse Pulse Resp BP BP Pulse Ox 06/27/19 07:42 76 17 93 06/27/19 07:19 36.8 C 90 16 136/81 94 06/27/19 04:00 36.4 C L 85 20 129/75 94 06/27/19 03:27 83 16 96 06/27/19 01:06 83 06/27/19 00:00 36.4 C L 93 H 20 136/69 93 06/26/19 22:59 96 H 16 95 Laboratory Results 06/27/19 06:59 06/27/19 06:59 Diagnostic Findings Imaging was independently reviewed. CT of the chest from 06/26/2019 demonstrated some atelectatic versus minimal cons olidative changes in the lower lobes with some potential thickening of the distal bronchi. PG Care Time/CCT Total # of Minutes Spent Total Time Spent with Patient: Total time spent is greater than 50% in coordination of care (as documented) at patient's floor/unit and/or counseling patient: Coding Level of Care Code 41420 Subseq Hosp Care Lvl [address] scan of lung R91.8 Cough R05
--- NOTE | 2019-06-27 12:07 | Hospitalist Progress Note ---
Date of Service June 27, 2019 Assessment & Plan (1) Abnormal CT scan of lung: Patient presents with history of approximately 4-6 weeks of cough, As per pulmonary clinic note, patient has been having chronic cough symptoms, recurrent transient infiltrate noted on chest imaging since fall [address] chest shows bilateral pneumonia/lung consolidation with mucous plugging, left bronchus narrowing Sputum culture positive for zygomete Sent for inpatient admission for further treatment possible IV antifungal and requirement for bronchoscopy pt admitted to medical tele pulmonology consulted , appreciate input CT chest with contrast 06/26/19 : no evidence of mucous plug mediastinal lymphadenopathy -similar noted in prior CT scan due to pts known diagnosis of B cell lymphoma per pulmonology -no evidence of active infection + fungal sputum culture in out pt possibly due to contamination no indication for anitifungal therapy pt does not have any acute respiratory symptoms stable to be discharged home today out pt follow up with Pulmonology scheduled already for in next 4 weeks Hyponatremia low Na on admission , possibly due to poor po intake dehydration given IV fluid B-cell lymphoma: Follows with hematology oncology Dr. Mora Has not received any chemo treatment Current blood work stable Hypertension: Continue Norvasc CODE STATUS: DNR/DNI: Discussed with patient and his , feels strongly against life support and resuscitation DVT prophylaxis: SCD and teds, patient is encouraged to ambulate Disposition: pt is stable to be discharged home today Admission and Anticipated Discharge Date Admission Date: June 26, 2019 Anticipated date of discharge: 06/27/19 Subjective no complain of cough or SOB offers no complain no fever or chills no hypoxia , adequate oxygenation in room air no chest pain or palpitation evaluated by Pulmonology team no evidence of fungal infection or pneumonia stable to be discharged home today with out pt follow up Review of Systems Respiratory: no cough, no dyspnea, no sputum production and no wheezing Physical Exam Constitutional: WD/WN, vitals as above + obese Eyes: PERRL, conjunctivae normal, anicteric sclerae ENMT: external ear and nose normal, oropharynx normal Neck: trachea midline, no thyromegaly Respiratory: normal respiratory effort and + cough; no respiratory distress Auscultation: no crackles, no rales, no rhonchi and no wheezes Cardiovascular: RRR, no murmur, no edema Gastrointestinal (Abdomen): normal bowel sounds, soft, nontender, no hepatosplenomegaly Musculoskeletal: no cyanosis or clubbing, extremities motor strength 5/5 Skin: no rashes, warm and dry Neurologic: PERRL, EOMI, accommodation nl, no face palsy, no dysarthria Psychiatric: A+Ox3, euthymic affect Results & Data ([facility]) Vital Signs (Past 12 Hours) Vital Signs Temp Pulse Pulse Resp BP BP Pulse Ox 06/27/19 11:22 36.2 C L 84 16 123/70 97 06/27/19 11:13 99 H 16 97 06/27/19 07:42 76 17 93 06/27/19 07:19 36.8 C 90 16 136/81 94 06/27/19 04:00 36.4 C L 85 20 129/75 94 06/27/19 03:27 83 16 96 06/27/19 01:06 83
[2019-06-27] MEDS ORDERED: POTASSIUM CHLORIDE 20 MEQ TABCR PO STA (12:32)
--- NOTE | 2019-06-27 21:25 | Electrocardiogram Report ---
Test Reason : Blood Pressure : / mmHG Vent. Rate : 082 BPM Atrial Rate : 082 BPM P-R Int : 174 ms QRS Dur : 082 ms QT Int : 382 ms P-R-T Axes : 061 067 064 degrees QTc Int : 446 ms Normal sinus rhythm Possible Left atrial enlargement Borderline ECG When compared with ECG of 26-JUN-2019 12:17, No significant change was found Confirmed by Rex Mason ([id number]) on 06/27/2019 9:25:10 PM Referred By: NO PCP Confirmed By:Rex Mason
--- NOTE | 2019-06-27 23:24 | Discharge Summary ---
Date of Service June 27, 2019 Admission HPI Per Admitting Provider This is a 73-year-old male with past medical history of hypertension, COPD, who has been followed at [facility] pulmonology clinic for ongoing productive cough which has been going on since April last year Patient was treated with multiple antibiotics including Levaquin, with no improvement or symptoms Had CT chest without contrast done on 06/13/2019: Impression : Limited exam without IV contrast. Bilateral peribronchial thickening and endobronchial mucous plugs. Large bilateral pulmonary consolidation involving the right middle and lower lobe and left lower lobe. Most likely pneumonia. Multiple scattered centrilobular groundglass nodules throughout the lungs most significantly in the lower lobes, favoring additional foci of infection. 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 Patient was asked to come to [facility] for hospital admission, will need IV antifungal and pulmonology/bronchoscopy evaluation Patient seen at bedside, denies of any shortness of breath, no orthopnea, has ongoing nonproductive cough, He does not feel sick, no recent weight change, no night sweat Has been dealing with nonproductive cough which started as common cold since April Did not had any fever chills in the past several months Patient is diagnosed with the B cell lymphoma, not had any chemo treatments Principal Diagnosis COUGH /ABNORMAL CT SCAN OF CHEST /NO EVIDENCE OF FUNGAL PNEUMONIA Discharge Exam Constitutional WD/WN, vitals as above + obese Eyes PERRL, conjunctivae normal, anicteric sclerae ENMT external ear and nose normal, oropharynx normal Neck trachea midline, no thyromegaly Respiratory normal respiratory effort and + cough; no respiratory distress Auscultation: no crackles, no rales, no rhonchi and no wheezes Cardiovascular RRR, no murmur, no edema Gastrointestinal (Abdomen) normal bowel sounds, soft, nontender, no hepatosplenomegaly Musculoskeletal no cyanosis or clubbing, extremities motor strength 5/5 Skin no rashes, warm and dry Neurologic PERRL, EOMI, accommodation nl, no face palsy, no dysarthria Psychiatric A+Ox3, euthymic affect Discharge Data Allergies Allergy/AdvReac Type Severity Reaction Status Date / Time No Known Allergies Allergy Unverified 06/26/19 13:59 Consultations 06/26/19 14:31 ED Decision to Admit Stat 06/26/19 15:53 Consult Case Management - Discharge Planning Routine Consult Pulmonology Routine Ordered Studies 06/26/19 14:56 CT chest w con Stat Hospital Course (1) Abnormal CT scan of lung: Patient presents with history of approximately 4-6 weeks of cough, As per pulmonary clinic note, patient has been having chronic cough symptoms, recurrent transient infiltrate noted on chest imaging since fall [address] chest shows bilateral pneumonia/lung consolidation with mucous plugging, left bronchus narrowing Sputum culture positive for zygomete Sent for inpatient admission for further treatment possible IV antifungal and requirement for bronchoscopy pt admitted to medical tele pulmonology consulted , appreciate input CT chest with contrast 06/26/19 : no evidence of mucous plug mediastinal lymphadenopathy -similar noted in prior CT scan due to pts known diagnosis of B cell lymphoma per pulmonology -no evidence of active infection + fungal sputum culture in out pt possibly due to contamination no indication for anitifungal therapy pt does not have any acute respiratory symptoms stable to be discharged home today out pt follow up with Pulmonology scheduled already for in next 4 weeks Hyponatremia low Na on admission , possibly due to poor po intake dehydration given IV fluid B-cell lymphoma: Follows with hematology oncology Dr. Mora Has not received any chemo treatment Current blood work stable Hypertension: Continue Norvasc CODE STATUS: DNR/DNI: Discussed with patient and his , feels strongly against life support and resuscitation DVT prophylaxis: SCD and teds, patient is encouraged to ambulate Disposition: pt is stable to be discharged home today Total Time Total Time Spent Total Time Spent (In Minutes): approx 35 mins Total Time Includes: Examination of the Patient, Discharge Planning, Medication Reconciliation and Communication With Other Providers Discharge Plan Discharge Items Patient Disposition: Home - Self-Care Reason For Visit: PNEUMONIA Discharge Diagnosis: COUGH /ABNORMAL CT SCAN OF CHEST /NO EVIDENCE OF FUNGAL PNEUMONIA Activity: Resume your previous activity Non-emergency contact: Primary Care Provider Call non-emergency contact if: you have any medication questions Follow-up/Referrals: Stephani Argueta [Physician] - 07/25/19 3:00 pm (07/25/2019 3:00 PM with [facility], [facility] ) Charli Flowers [Primary Care Provider] - 07/04/19 10:00 am (PLEASE CALL [phone] IF YOU NEED TO RESCHEDULE THIS APPOINTMENT. THIS WILL BE IN OUR [place] OFFICE WITH MASOUD) Diet: Regular Addtl Attending Provider Instructions: Hospital follow up with Family physician in a week , please call to schedule an appointment Follow up with Pulmonology Dr Jackson for future Bronchoscopic procedure if needed Pending Studies at Discharge: No Stand-Alone Forms: My [facility], Smoking Cessation Medications and DC Order Prescriptions: Continued amlodipine 5 mg tablet 5 mg PO BID RF: 0 Breo Ellipta 200-25 mcg/dose blister with device 1 inh INHALATION BID RF: 0 ProAir RespiClick 90 mcg/actuation aerosol powdr breath activated 1 inh INHALATION Q4H PRN (Reason: Shortness Of Breath Or Wheezing) RF: 0 Discharge Orders: Discharge Order (Routine); Ordered 06/27/19 Ordered By: Di Aguirre Admission Data Admit Date/Time: 06/26/19 14:34 Attending Provider: Di Aguirre Admit Provider: Di Aguirre Primary Care Provider: Charli Flowers Other Providers: Di Aguirre ; Demetrius Jackson Other Interventions: Discharge Summary Assessment (RN) Last Done: 06/27/19 13:06 DC Date/Time DO NOT enter until pt leaves facility: 06/27/19 15:00
== END 2019-06-27 15:00 | disposition home or self-care (01) | DRG 204 ==
LOC: ED 11:05 → 2W 14:34

== ENCOUNTER 2019-07-24 16:33 | Inpatient (IN) ==
[2019-07-24] MEDS ORDERED: ALBUT/IPRATROP 3MG/0.5MG NEB 3 ML VIAL NEB STA (16:50)
[2019-07-24 17:21] LABS: Base Excess VBG 2.5 mEq/L; HCO3 VBG 26 mmol/L; PCO2 VBG 36 mmHg (38-50); PO2 VBG 25 mmHg; pH VBG 7.48 (7.36-7.41)
[2019-07-24 17:31] LABS: Oxygen Saturation VBG < 60.0 %
[2019-07-24 17:32] LABS: Basophils # (auto) 0.01 K/uL (0-0.2); Basophils % (auto) 0.1 %; Eosinophils # (auto) 0.02 K/uL (0-0.5); Eosinophils % (auto) 0.2 %; Hematocrit (blood only) 27.7 % (42-52); Hemoglobin 9.4 g/dL (14.0-18.0); Immature Granulocytes # (auto) 0.03 K/uL (0.00-0.02); Immature Granulocytes % (auto) 0.2 %; Lymphocytes # (auto) 1.03 K/uL (1.2-3.4); Lymphocytes % (auto) 8.3 %; Mean Corpuscular Hemoglobin 30.8 pg (25-34); Mean Corpuscular Hgb Conc 33.9 g/dL (32-36); Mean Corpuscular Volume 90.8 fL (80-100); Mean Platelet Volume 8.1 fL (7.4-10.4); Monocytes # (auto) 0.94 K/uL (0.11-0.59); Monocytes % (auto) 7.5 %; Neutrophils # (auto) 10.43 K/uL (1.4-6.5); Neutrophils % (auto) 83.7 %; Platelet Count 307 K/uL (130-400); RDW Coefficient of Variation 15.5 % (11.5-14.5); RDW Standard Deviation 52.2 fL (36.4-46.3); Red Blood Count 3.05 M/uL (4.7-6.1); White Blood Count 12.46 K/uL (4.8-10.8)
[2019-07-24 17:47] LABS: INR 1.2 (0.9-1.1); Partial Thromboplastin Ratio 1.1; Partial Thromboplastin Time 30.6 Seconds (21.0-31.0); Prothrombin Time 12.4 Seconds (9.0-12.0)
[2019-07-24] MEDS ORDERED: PIPERACILLIN/TAZOBACTAM 4.5 GM/120 ML BAG IV ONE (17:48)
[2019-07-24] MEDS ORDERED: PIPERACILL/TAZOBAC CONSULT ACTIVE PRN (17:48)
[2019-07-24 17:53] LABS: Alanine Aminotransferase 11 U/L (12-78); Albumin Level 2.2 gm/dl (3.4-5.0); Aspartate Aminotransferase 12 U/L (15-37); BUN Creatinine Ratio 10.7 (10-20); Blood Urea Nitrogen 10 mg/dl (7-18); Calcium 7.9 mg/dl (8.5-10.1); Carbon Dioxide 27 mmol/L (21-32); Chloride 100 mmol/L (98-107); Creatinine Clr Calc Pharmacy 71.1 ml/min; Est GFR (African American) 91.2; Est GFR (Non-African American) 78.7; Glucose 98 mg/dl (70-99); Magnesium 1.6 mg/dl (1.8-2.4); Potassium 3.5 mmol/L (3.5-5.1); Sodium 130 mmol/L (136-145)
[2019-07-24 17:58] LABS: Albumin Globulin Ratio 0.3 (0.9-2); Alkaline Phosphatase 58 U/L (45-117); Bilirubin,Total 0.7 mg/dl (0.2-1); Globulin 7.1 gm/dl (2.5-4.0); Total Protein 9.3 gm/dl (6.4-8.2); Troponin I < 0.015 ng/ml (0-0.045)
[2019-07-24 18:18] LABS: Influenza A virus by PCR Neg for Influ A (Neg); Influenza B virus by PCR Neg for Influ B (Neg)
--- NOTE | 2019-07-24 18:40 | Emergency Department Note ---
History of Present Illness General Chief complaint: Illness Stated complaint: AMMONIA Time Seen by Provider: 07/24/19 16:45 History of Present Illness The patient is a 73-year-old male who presented to the emergency department for an evaluation of shortness of breath. The patient was feeling short of breath over the last few days. He has a history of chronic aspiration as well as pneumonia. The patient was seen at the pulmonary clinic and had a chest x-ray which showed bilateral lower lobe infiltrates. The patient was then sent to the emergency department for admission. According to the call the patient was to be an admission but they were unable to do a direct admission. The patient's had no traveling. He had no fever. The significant other has been noticing cough. At this time there is been no nausea or vomiting. The patient has had no abdominal pain or weakness. Home Medications Home Medications Medication Instructions Recorded Confirmed Type Breo Ellipta 1 inh INHALATION BID 06/26/19 07/24/19 History ProAir RespiClick 1 inh INHALATION Q4H PRN 06/26/19 07/24/19 History amlodipine 5 mg PO BID 06/26/19 07/24/19 History benzonatate 100 mg capsule 100 mg PO BID PRN #30 cap 07/08/19 07/24/19 Rx ipratropium 0.5 mg-albuterol 3 mg 3 ml INH Q6H PRN #90 ml 07/08/19 07/24/19 Rx (2.5 mg base)/3 mL nebulization soln ipratropium 0.5 mg-albuterol 3 mg 3 ml INH Q6H PRN 90 Days #180 ml 07/09/19 07/24/19 Rx (2.5 mg base)/3 mL nebulization soln Allergies Allergy/AdvReac Type Severity Reaction Status Date / Time No Known Allergies Allergy Verified 07/24/19 13:12 Past Med/Surg History Medical History Asthma Mucus plugging of bronchi No pertinent past medical history Surgical History No pertinent past surgical history Family History Other Family history non-contributory Social History Preferred Language: Malawian Communication Ability: Effective Enterprise Solutions Architect Required: No Beliefs That Will Affect Care: None Current Living Situation: Spouse Feels Safe at Home: Yes Smoking Status: Never smoker Hx Alcohol Use: Yes Alcohol type: beer Hx Substance Use: No Review of Systems See HPI for pertinent positives & negatives. and A total of 10 systems reviewed and were otherwise negative Additional history is obtained from patient's significant other. Physical Exam Vital Signs Vital Signs - 24 hr 07/24/19 16:37 07/24/19 17:14 07/24/19 17:31 Temperature 36.6 C Temperature Source Oral Pulse Rate 92 H 92 H Pulse Rate [Apical] 92 H Pulse Rhythm Regular Respiratory Rate 22 22 22 Respiratory Effort / Characteristics Spontaneous Blood Pressure 131/73 Blood Pressure Mean 92 Blood Pressure Position Sitting Pulse Oximetry 92 94 94 Oxygen Delivery Method Room Air Room Air Room Air Sepsis Recent Fever Within 48 Hours No Sepsis Action Taken by Nursing No Action Required GENERAL: Patient is awake alert in no acute distress patient is resting comfortably and showing no signs of anxiety EYES: The conjunctivae are clear. The pupils are round and reactive. EARS, NOSE, MOUTH AND THROAT: The nose is without any evidence of any deformity. Mucous membranes are moist. Tongue is midline. NECK: The neck is nontender and supple. RESPIRATORY: Diminished breath sounds are noted at the bases. There is no tachypnea or conversational dyspnea. CARDIOVASCULAR: Regular rate and rhythm noted there no murmurs rubs or gallops normal S1 normal S2. GASTROINTESTINAL: The abdomen is soft. Abdomen is nontender. MUSCULOSKELETAL/EXTREMITIES: There is no evidence of gross deformity full range of motion is noted in the hips and shoulders. SKIN: There is no obvious evidence of any rash. Trace pedal edema was noted bilaterally. NEUROLOGIC: Patient is awake alert and oriented x3. Gait was steady. Course Course 1833: I discussed this case with Marina trimble, the on-call [facility] hospitalist group. They have agreed to evaluate the patient in the emergency department for further management and disposition. Administered Medications Discontinued Medications Albuterol (Duoneb) 3 ml NEB NOW STA Stop: 07/24/19 16:51 Last Admin: 07/24/19 17:13 Dose: 3 ml Documented by: [id number] Medical Decision Making Differential Diagnosis Etiologies such as pneumonia, COPD, reactive airway disease, CHF, cardiac ischemia, pulmonary embolism, pneumothorax, musculoskeletal, infections, gastrointestinal, as well as others were entertained. Medical Records Attestation: I reviewed the patient's medical records. Home Medications Current Medication List: was personally reviewed by me Laboratory Data Attestation: I reviewed the patient's lab results. Result diagrams: 07/24/19 17:11 07/24/19 17:11 Lab Results 07/24/19 07/24/19 07/24/19 Range/Units 17:11 17:11 17:11 WBC 12.46 H (4.8-10.8) K/uL RBC 3.05 L (4.7-6.1) M/uL Hgb 9.4 L (14.0-18.0) g/dL Hct 27.7 L (42-52) % MCV 90.8 (80-100) fL MCH 30.8 (25-34) pg MCHC 33.9 (32-36) g/dL RDW Std Deviation 52.2 H (36.4-46.3) fL RDW Coeff of Gucci 15.5 H (11.5-14.5) % Plt Count 307 (130-400) K/uL MPV 8.1 (7.4-10.4) fL Immature Gran % (Auto) 0.2 % Neut % (Auto) 83.7 % Lymph % (Auto) 8.3 % [place] % (Auto) 7.5 % Eos % (Auto) 0.2 % Baso % (Auto) 0.1 % Immature Gran # (Auto) 0.03 H (0.00-0.02) K/uL Neut # (Auto) 10.43 H (1.4-6.5) K/uL Lymph # (Auto) 1.03 L (1.2-3.4) K/uL [place] # (Auto) 0.94 H (0.11-0.59) K/uL Eos # (Auto) 0.02 (0-0.5) K/uL Baso # (Auto) 0.01 (0-0.2) K/uL PT 12.4 H (9.0-12.0) Seconds INR 1.2 H (0.9-1.1) APTT 30.6 (21.0-31.0) Seconds PTT Ratio 1.1 VBG pH (7.36-7.41) VBG pCO2 (38-50) mmHg VBG pO2 mmHg VBG HCO3 mmol/L VBG O2 Saturation % VBG Base Excess mEq/L Barometric Pressure mm/Hg Sodium 130 L (136-145) mmol/L Potassium 3.5 (3.5-5.1) mmol/L Chloride 100 (98-107) mmol/L Carbon Dioxide 27 (21-32) mmol/L Anion Gap 3.0 (3-11) BUN 10 (7-18) mg/dl Creatinine 0.96 (0.6-1.4) mg/dl Est Cr Clr Drug Dosing 71.1 ml/min Est GFR ( Amer) 91.2 Est GFR (Non-Af Amer) 78.7 BUN/Creatinine Ratio 10.7 (10-20) Glucose 98 (70-99) mg/dl Calcium 7.9 L (8.5-10.1) mg/dl Magnesium 1.6 L (1.8-2.4) mg/dl Total Bilirubin 0.7 (0.2-1) mg/dl AST 12 L (15-37) U/L ALT 11 L (12-78) U/L Alkaline Phosphatase 58 (45-117) U/L Troponin I < 0.015 (0-0.045) ng/ml Total Protein 9.3 H (6.4-8.2) gm/dl Albumin 2.2 L (3.4-5.0) gm/dl Globulin 7.1 H (2.5-4.0) gm/dl Albumin/Globulin Ratio 0.3 L (0.9-2) Influenza Type A (PCR) (Neg) Influenza Type B (PCR) (Neg) 07/24/19 07/24/19 Range/Units 17:11 17:22 WBC (4.8-10.8) K/uL RBC (4.7-6.1) M/uL Hgb (14.0-18.0) g/dL Hct (42-52) % MCV (80-100) fL MCH (25-34) pg MCHC (32-36) g/dL RDW Std Deviation (36.4-46.3) fL RDW Coeff of Gucci (11.5-14.5) % Plt Count (130-400) K/uL MPV (7.4-10.4) fL Immature Gran % (Auto) % Neut % (Auto) % Lymph % (Auto) % [place] % (Auto) % Eos % (Auto) % Baso % (Auto) % Immature Gran # (Auto) (0.00-0.02) K/uL Neut # (Auto) (1.4-6.5) K/uL Lymph # (Auto) (1.2-3.4) K/uL [place] # (Auto) (0.11-0.59) K/uL Eos # (Auto) (0-0.5) K/uL Baso # (Auto) (0-0.2) K/uL PT (9.0-12.0) Seconds INR (0.9-1.1) APTT (21.0-31.0) Seconds PTT Ratio VBG pH 7.48 H (7.36-7.41) VBG pCO2 36 L (38-50) mmHg VBG pO2 25 mmHg VBG HCO3 26 mmol/L VBG O2 Saturation < 60.0 % VBG Base Excess 2.5 mEq/L Barometric Pressure 734.7 mm/Hg Sodium (136-145) mmol/L Potassium (3.5-5.1) mmol/L Chloride (98-107) mmol/L Carbon Dioxide (21-32) mmol/L Anion Gap (3-11) BUN (7-18) mg/dl Creatinine (0.6-1.4) mg/dl Est Cr Clr Drug Dosing ml/min Est GFR ( Amer) Est GFR (Non-Af Amer) BUN/Creatinine Ratio (10-20) Glucose (70-99) mg/dl Calcium (8.5-10.1) mg/dl Magnesium (1.8-2.4) mg/dl Total Bilirubin (0.2-1) mg/dl AST (15-37) U/L ALT (12-78) U/L Alkaline Phosphatase (45-117) U/L Troponin I (0-0.045) ng/ml Total Protein (6.4-8.2) gm/dl Albumin (3.4-5.0) gm/dl Globulin (2.5-4.0) gm/dl Albumin/Globulin Ratio (0.9-2) Influenza Type A (PCR) Neg for Influ A (Neg) Influenza Type B (PCR) Neg for Influ B (Neg) Imaging Data Radiologist's Impression: I did review the patient's outpatient chest x-ray which revealed bilateral lower lobe infiltrates. ECG Data Attestation: I personally reviewed and interpreted this ECG as follows: Indication: + SOB/dyspnea Additional Comments: EKG was obtained in the emergency department. My interpretation of the EKG is normal sinus rhythm 92 bpm. No ectopy was noted. There is no acute ST segment abnormalities noted. There is no significant change compared to tracing from June 27, 2019. Blood Pressure Blood Pressure Findings: Normal blood pressure Blood Pressure Disposition: further management by hospitalist MDM Narrative The patient is a 73-year-old male who has a history of pulmonary infection as well as chronic aspiration. The patient presented to the emergency department because of shortness of breath. The patient was seen initially at the primary pulmonary office but was then sent to the emergency department for admission. They tried to make the patient a direct admission but were unable to. The patient was found have pneumonia on outpatient chest x-ray. He was found to have an elevated white blood cell count. I discussed the patient's laboratory and radiographic studies with him. I also discussed his case with the on-call [facility] hospitalist group. They have agreed to evaluate the patient in the emergency department for further management and disposition. Impression & Plan Pneumonia, SOB (shortness of breath) Discharge Plan Visit Data Chief Complaint: Illness Stated Complaint: AMMONIA ED Provider: Delmar Nieves Discharge Problem: Pneumonia, SOB (shortness of breath) Patient Disposition: Being Evaluated by Hospitalist Condition: Good Forms Stand Alone Forms: My [facility] Prescriptions Prescriptions: No Action ipratropium-albuterol 0.5 mg-3 mg(2.5 mg base)/3 mL solution for nebulization 3 ml INH Q6H PRN (Reason: wheezing) Qty: 90 RF: 3 benzonatate 100 mg capsule 100 mg PO BID PRN (Reason: cough) Qty: 30 RF: 2 ipratropium-albuterol 0.5 mg-3 mg(2.5 mg base)/3 mL solution for nebulization 3 ml INH Q6H PRN (Reason: wheezing) 90 Days Qty: 180 RF: 3 amlodipine 5 mg tablet 5 mg PO BID RF: 0 Breo Ellipta 200-25 mcg/dose blister with device 1 inh INHALATION BID RF: 0 ProAir RespiClick 90 mcg/actuation aerosol powdr breath activated 1 inh INHALATION Q4H PRN (Reason: Shortness Of Breath Or Wheezing) RF: 0 Referrals Referrals: Charli Flowers [Primary Care Provider] - Discharge Problem: Pneumonia Qualifiers: Pneumonia type: due to unspecified organism Laterality: bilateral Lung location: lower lobe of lung Qualified Code(s): J18.9 - Pneumonia, unspecified organism
[2019-07-24 19:44] LABS: NT Pro B Type Natriuretic Pept 2281 pg/ml (0-900)
--- NOTE | 2019-07-24 19:49 | History & Physical Report ---
Date of Service July 24, 2019 Assessment & Plan (1) Pneumonia: -Admit to [facility] -Patient presenting by referral of outpatient pulmonary office for evaluation of hypoxia and CXR showing worsening opacities -Please refer to HPI for recent history regarding pneumonia treatment -In the ED, patient is saturating well on room air at 94% -WBC 12.4K, afebrile, vitals stable; does not appear septic -? Due to recurrent aspiration; had video swallow on 06/24 showing moderate pharyngeal phase dysphagia and scant silent episodes of aspiration. Has been following with outpatient speech therapy, patient reports compliance with aspiration precautions. 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 Whitaker who recommends broad-spectrum antibiotics with IV Levaquin, IV Zosyn, IV vancomycin; check proBNP and echo (2) Normocytic normochromic anemia: -Hgb 12.0 (06/26) -> 11.0 (06/27) -> 9.4 today -No signs of bleeding -Check iron studies with morning labs (3) Chronic airway disease: -Questionable -Attempted PFTs on 07/16 however patient was unable to perform the appropriate maneuvers -Pulmonary recommended the patient continue Brio Ellipta if patient feels as though it provides benefit (4) HTN (hypertension): -BP controlled, continue amlodipine (5) B-cell lymphoma: -Currently under surveillance -Not receiving chemotherapy -Follows with Dr. Mora (6) DVT prophylaxis: -SQ Lovenox History of Present Illness Chief Complaint: Cough Primary Care Provider: Charli Flowers 73-year-old male who was sent to the ED by outpatient pulmonary provider for evaluation of worsening pneumonia. Patient admitted to [facility] 06/26 through 06/27 for pneumonia after outpatient sputum culture showed Zygomycetes. Pulmonary evaluated the patient and felt that it was highly unlikely that patient had an active fungal pneumonia. Patient followed up with pulmonary on 07/02 and was placed on 10 days of Augmentin. Patient reports no improvement in his symptoms after completing this course. He was seen again in the clinic on 07/16. PFTs were attempted however patient was unable to complete the maneuvers appropriately. Pneumonia was felt to be due to recurrent aspiration. Patient has been following with speech therapy. He reports compliance with swallowing maneuvers. Patient reports that he has had continued cough since being discharged in the hospital. Reports he has not been worsening however has not been improving either. Reports that it is productive for a milky/white-colored sputum. He denies fevers and chills. No chest pain. He reports chronic exertional shortness of breath which is unchanged from baseline. Denies lightheadedness, dizziness, diaphoresis, syncopal events. No abdominal pain, nausea, vomiting, diarrhea. He denies any urinary symptoms. Patient was seen in the pulmonary clinic again today for persistent symptoms. He was found to be hypoxic on room air at 88%. This improved with oxygen 2 L via nasal cannula. CXR was obtained and showed progressive bilateral mid to lower lung zone airspace opacities. in the ED, patient is saturating well on room air. WBC 12 K. Patient was given IV Zosyn and nebulizer treatment. Allergies Allergy/AdvReac Type Severity Reaction Status Date / Time No Known Allergies Allergy Verified 07/24/19 13:12 Home Medications Home Medications Medication Instructions Recorded Confirmed Type Breo Ellipta 1 inh INHALATION BID 06/26/19 07/24/19 History ProAir RespiClick 1 inh INHALATION Q4H PRN 06/26/19 07/24/19 History amlodipine 5 mg PO BID 06/26/19 07/24/19 History benzonatate 100 mg capsule 100 mg PO BID PRN #30 cap 07/08/19 07/24/19 Rx ipratropium 0.5 mg-albuterol 3 mg 3 ml INH Q6H PRN #90 ml 07/08/19 07/24/19 Rx (2.5 mg base)/3 mL nebulization soln ipratropium 0.5 mg-albuterol 3 mg 3 ml INH Q6H PRN 90 Days #180 ml 07/09/19 07/24/19 Rx (2.5 mg base)/3 mL nebulization soln Past Med/Surg History Medical History Aspiration of food B-cell lymphoma Chronic airway disease Dysphagia HTN (hypertension) Surgical History No pertinent past surgical history Family History Mother Emphysema of lung Father Heart disease Social History Preferred Language: German Communication Ability: Effective College President Required: No Beliefs That Will Affect Care: None Current Living Situation: Spouse Feels Safe at Home: Yes Smoking Status: Never smoker Do You Dip or Chew Tobacco: No ; Hx Alcohol Use: Yes Alcohol type: beer Hx Substance Use: No Review of Systems Review of Systems: ROS per HPI, all other systems reviewed and negative Physical Exam Constitutional: WD/WN, vitals as above Eyes: PERRL, conjunctivae normal, anicteric sclerae ENMT: external ear and nose normal, oropharynx normal Respiratory: normal respiratory effort; no respiratory distress Auscultation: + rhonchi (Mid to lower lung velarde bilaterally) and + wheezes (Bilateral, inspiratory and expiratory) Cardiovascular: Rate/Rhythm: regular rate and regular rhythm Vessels: normal peripheral pulses Extremities: + edema (Trace edema BLE) Gastrointestinal (Abdomen): normal bowel sounds, soft, nontender, no hepatosplenomegaly Musculoskeletal: no cyanosis or clubbing, extremities motor strength 5/5 Skin: no rashes, warm and dry Neurologic: PERRL, EOMI, accommodation nl, no face palsy, no dysarthria Psychiatric: A+Ox3, euthymic affect Results & Data Vital Signs (Past 12 Hours) Vital Signs Temp Pulse Pulse Resp BP Pulse Ox 07/24/19 19:00 92 H 27 H 136/66 95 07/24/19 18:35 93 H 31 H 157/80 H 94 07/24/19 17:31 92 H 22 94 07/24/19 17:14 92 H 22 94 07/24/19 16:37 36.6 C 92 H 22 131/73 92 Laboratory Results Short CBC 07/24/19 Range/Units 17:11 WBC 12.46 H (4.8-10.8) K/uL Hgb 9.4 L (14.0-18.0) g/dL Hct 27.7 L (42-52) % Plt Count 307 (130-400) K/uL BMP 07/24/19 17:11 Sodium 130 L Potassium 3.5 Chloride 100 Carbon Dioxide 27 BUN 10 Creatinine 0.96 Glucose 98 Calcium 7.9 L Cardiac Enzymes 07/24/19 Range/Units 17:11 Troponin I < 0.015 (0-0.045) ng/ml Liver Function 07/24/19 Range/Units 17:11 Total Bilirubin 0.7 (0.2-1) mg/dl AST 12 L (15-37) U/L ALT 11 L (12-78) U/L Alkaline Phosphatase 58 (45-117) U/L Albumin 2.2 L (3.4-5.0) gm/dl Diagnostic Findings CXR IMPRESSION: 1. Mild central pulmonary vascular congestion without overt edema and small bilateral pleural effusions. This has progressed. 2. Progressive bilateral mid to lower lung zone airspace opacities. This may represent a superimposed pneumonia. Code Status & VTE Plan Code Status Patient is a DNR as per my discussion with him. VTE Prophylaxis Plan VTE Prophylaxis will be ordered: Yes Supervising Physician Co-Signing Physician Notes Attending Addendum: care coordinated with CAITLIN Collins please refer to her notes for full details, I agree with her notes patient seen and examined, records reviewed by myself as well on exam, patient seen resting in bed, comfortable no active SOB reports intermittent productive cogh no other symptoms VS noted and reviewed oriented , not in distress, speaks in sentences with no effort nor accessory muscle use normal rate, regular rhythm, no murmurs clear breath sounds bilaterally non distended, soft, nontender no bipedal edema, erythema, warmth no neuro deficits WBC 12.4 Hg 9.4 Crea 0.96 CXR: 1. Mild central pulmonary vascular congestion without overt edema and small bilateral pleural effusions. This has progressed. 2. Progressive bilateral mid to lower lung zone airspace opacities. This may represent a superimposed pneumonia. ASSESSMENT AND PLAN RECURRENT PNEUMONIA POSSIBLE ASPIRATION , VS. [facility] - ff up blood and sputum cultures - CT chest ordered - Vanco, Zosyn, Levaquin Nebs, Mucinex, Mucomyst - Pulmonary consulted HTN - continue Amlodipine other diagnoses and plan of care as per CAITLIN Collins's notes Lamonte Coffey MD
[2019-07-24] MEDS ORDERED: VANCOMYCIN CONSULT ACTIVE PRN (20:08)
[2019-07-24] MEDS ORDERED: IOVERSOL 100ml IV PRN (20:32)
--- NOTE | 2019-07-24 20:42 | Pharmacy Report ---
Pharmacy Abx Dose Short Note - Date of Service July 24, 2019 - Assessment & Plan Assessment 73 year old M receiving vancomycin/Zosyn/Levaquin for treatment of pulmonary Plan Patient meets criteria for vancomycin AUC dosing nomogram AUC/ISIDRO is the preferred PK/PD target for vancomycin * Target AUC/ISIDRO = 400-600 * AUC guided dosing is effective and associated with decreased risk of nephrotoxicity Pharmacy will continue to follow and will adjust dose/frequency as necessary. Thank you.
[2019-07-24] MEDS: MAGNESIUM SULFATE / D5W 1 GM/100 ML BAG IV SCH ×2 (20:51→21:45)
[2019-07-24] MEDS: LEVOFLOXACIN/D5W 750 MG/150 ML BAG IV SCH (20:51)
--- NOTE | 2019-07-24 20:54 | CT Scan Report ---
CT OF THE CHEST WITH IV CONTRAST CLINICAL HISTORY: recurrent pneumonia COMPARISON STUDY: June 26, 2019 TECHNIQUE: Following the IV administration of 93 mL of Optiray-320, CT of the thorax was performed f rom the thoracic inlet to the lung bases. Images are reviewed in the axial, sagittal, and coronal tere jennifer. IV contrast was administered without complication. A dose lowering technique was utilized adher ing to the principles of ALARA. CT DOSE: 305.25 mGy.cm FINDINGS: Thyroid: Imaged portions of the thyroid gland are normal in appearance. Thoracic aorta: The thoracic aorta is normal in course and caliber, noting standard 3-vessel arch esau julio cesar. No aneurysm or dissection is seen. Pulmonary vasculature: The pulmonary trunk is normal in caliber. There are no central filling defects identified to suggest pulmonary embolus. Note that this examination was not protocoled for the evalu ation of pulmonary emboli. HEART: The heart is enlarged. There are coronary calcifications. There is no significant pericardial effusion. Lungs and pleural spaces: There are small bilateral pleural effusions. There is aggressive bilateral lower lobe pulmonary consolidation. There is bronchial wall thickening and mucous plugging. There are persistent right middle lobe pulmonary airspace opacities with areas of bronchial wall thickening. T here are slightly progressive mild upper lobe airspace opacities. Mediastinum: There are mildly enlarged mediastinal lymph nodes similar to the prior study. [place]: There is mild hilar adenopathy similar to the prior study. Axilla: There is mild bilateral axillary lymphadenopathy similar to the prior study. Upper abdomen: Partially visualized upper abdominal viscera is within normal limits. Skeletal structures: There are no lytic or blastic osseous lesions. IMPRESSION: 1. Progressive multifocal pulmonary areas of parenchymal consolidation and airspace opacity 2. Small bilateral pleural effusions 3. Persistent mild axillary, mediastinal and hilar lymphadenopathy ACT 112: Negative or not required by law. Electronically signed by: Jeremiah Breaux M.D. 07/24/2019 8:52 PM
[2019-07-24] MEDS ORDERED: VANCOMYCIN HCL 2,000 MG in SODIUM CHLORIDE 0.9% 500 ML IV ONE (21:00)
[2019-07-24] MEDS: AMLODIPINE BESYLATE 5 MG TAB PO SCH (21:38)
[2019-07-24] MEDS: guaiFENesin 600 MG TABCR PO SCH (21:38)
[2019-07-24] MEDS: ENOXAPARIN INJ 40 MG/0.4 ML SYR SQ SCH (21:39)
[2019-07-24] MEDS: PIPERACILLIN/TAZOBACTAM 3.375 GM in DEXTROSE 5% 100 ML IV SCH (22:25)
[2019-07-25] MEDS: D5W AND 1/2NSS 1,000 ML IV SCH ×2 (00:09→12:35)
[2019-07-25 05:57] LABS: Hematocrit (blood only) 26.1 % (42-52); Mean Corpuscular Hemoglobin 30.7 pg (25-34); Mean Corpuscular Hgb Conc 34.5 g/dL (32-36); Mean Corpuscular Volume 89.1 fL (80-100); Mean Platelet Volume 8.1 fL (7.4-10.4); Platelet Count 263 K/uL (130-400); RDW Coefficient of Variation 15.7 % (11.5-14.5); Red Blood Count 2.93 M/uL (4.7-6.1); White Blood Count 8.28 K/uL (4.8-10.8)
[2019-07-25] MEDS: PIPERACILLIN/TAZOBACTAM 3.375 GM in DEXTROSE 5% 100 ML IV SCH ×3 (06:20→22:09)
[2019-07-25 06:26] LABS: BUN Creatinine Ratio 11.5 (10-20); Calcium 7.4 mg/dl (8.5-10.1); Creatinine Clr Calc Pharmacy 93.5 ml/min; Est GFR (African American) 107.4; Est GFR (Non-African American) 92.7; Potassium 3.4 mmol/L (3.5-5.1)
[2019-07-25 06:32] LABS: Ferritin 325.1 ng/ml (8-388)
[2019-07-25] MEDS: ALBUT/IPRATROP 3MG/0.5MG NEB 3 ML VIAL NEB SCH ×4 (07:16→19:07)
--- NOTE | 2019-07-25 07:26 | Electrocardiogram Report ---
Test Reason : Blood Pressure : / mmHG Vent. Rate : 092 BPM Atrial Rate : 092 BPM P-R Int : 162 ms QRS Dur : 084 ms QT Int : 364 ms P-R-T Axes : 050 046 052 degrees QTc Int : 450 ms Normal sinus rhythm Possible Left atrial enlargement Borderline ECG When compared with ECG of 27-JUN-2019 06:29, No significant change was found Confirmed by Rex Mason ([id number]) on 07/25/2019 7:25:30 AM Referred By: REFERRED SELF Confirmed By:Rex Mason
--- NOTE | 2019-07-25 08:05 | Pulmonary Consultation ---
Date of Consultation July 25, 2019 Assessment & Plan (1) Multilobar lung infiltrate: --Multilobar infiltrates with bronchiectasis of the lower lobes Patient has had multiple admissions in the past because of this. Patient does have history of aspiration. There is high likelihood that that is the main etiology of his recurrent infections. Patient also has mediastinal lymphadenopathy especially R4 Follow-up septic work-up, sputum culture, ESR: 43, CRP: 15.1, procalcitonin 0.16, BNP 2281 Continue with Zosyn. MRSA nares was negative will discontinue vancomycin. Continue with atypical coverage with levofloxacin. For the bronchiectasis continue with Mucinex and flutter valve Follow-up daily chest x-rays. --Asthma Not in exacerbation Continue with Laba/ICS therapy O2 supplementation as needed Plan: Plan was to do bronchoscopy at noon today with possible EBUS to get culture and tissue sample. But had swallow eval although the patient was n.p.o. at bedside and he was given food. Bronchoscopy was canceled. Would continue with antibiotics for the time being now. Given the elevated BNP at the time of presentation and bilateral pleural effusion on the CT chest follow-up 2D echo (grade 1 diastolic CHF, ejection fraction 60%) Give a dose of 40mg Lasix. Please note the above document was generated using voice recognition software. It may contain grammatical, syntax or spelling errors. (2) Dysphagia: (3) LAD (lymphadenopathy), mediastinal: History of Present Illness Attending Physician: Di Aguirre MD History of Present Illness 8-year-old male with past medical history of bilateral lower lobe atelectasis and history of multilobar pneumonia recurrent, asthma who follows up with outpatient pulmonology at [facility] was recently in the hospital as outpatient sputum culture grew Zygomycetes. At the same time patient had a sputum culture in the hospital which was negative. Patient was treated with Augmentin as an outpatient for 10 days. On 07/24/2019 patient had an outpatient chest x-ray done as patient was feeling worse. The chest x-ray shows worsening bilateral consolidation. Patient was sent to the ED for further treatment. Patient does have history of aspiration as evidenced by previous swallow eval. At the time of examination patient states that he had been coughing since the time of discharge from the hospital. There was a time when he is improved a little bit but then again he started coughing with progressive worsening. He complains of white-colored phlegm. Denies any fever or chills, no chest pain, no palpitations, no nausea or vomiting. No dysuria, no diarrhea. No recent travel history. No upper respiratory infection. Denies any runny nose or tearing from the eyes. No weight loss, no night sweats. Allergies Allergy/AdvReac Type Severity Reaction Status Date / Time No Known Allergies Allergy Verified 07/24/19 13:12 Home Medications Home Medications Medication Instructions Recorded Confirmed Type Breo Ellipta 1 inh INHALATION BID 06/26/19 07/24/19 History ProAir RespiClick 1 inh INHALATION Q4H PRN 06/26/19 07/24/19 History amlodipine 5 mg PO BID 06/26/19 07/24/19 History benzonatate 100 mg capsule 100 mg PO BID PRN #30 cap 07/08/19 07/24/19 Rx ipratropium 0.5 mg-albuterol 3 mg 3 ml INH Q6H PRN #90 ml 07/08/19 07/24/19 Rx (2.5 mg base)/3 mL nebulization soln ipratropium 0.5 mg-albuterol 3 mg 3 ml INH Q6H PRN 90 Days #180 ml 07/09/19 07/24/19 Rx (2.5 mg base)/3 mL nebulization soln Patient History Medical History Aspiration of food B-cell lymphoma Chronic airway disease Dysphagia HTN (hypertension) Surgical History No pertinent past surgical history Family History Mother Emphysema of lung Father Heart disease Social History Preferred Language: Slovenian Communication Ability: Effective Data Scientist Required: No Beliefs That Will Affect Care: None Current Living Situation: Spouse Feels Safe at Home: Yes Smoking Status: Never smoker Do You Dip or Chew Tobacco: No ; Hx Alcohol Use: Yes Alcohol type: beer Hx Substance Use: No Review of Systems Review of Systems: All systems reviewed & are unremarkable except as noted in HPI & below Physical Exam Physical Exam: Constitutional: No acute distress HEENT: EOMI, PERRLA, moist mucous membranes, thick neck Respiratory system: Decreased antibiotic, bilateral lower lobe crackles, no wheeze, no rhonchi CVS: S1-S2 positive, no murmurs or gallops Abdomen: Soft, nontender, nondistended, positive bowel sounds x4 Extremities: +2 pulses bilaterally radialis/ dorsalis pedis, no cyanosis, no ed jossy, no cyanosis Neuro: Awake alert oriented x3 Psych: Normal mood and affect G/U: No Baxter Skin: no rashes, warm and dry Lymphatic: no cervical or axillary lymphadenopathy Results & Data ([facility]) Vital Signs (Past 12 Hours) Vital Signs Temp Pulse Resp BP Pulse Ox 07/25/19 07:37 36.7 C 94 H 18 152/81 H 95 07/25/19 07:17 95 H 20 95 07/24/19 23:00 36.6 C 97 H 18 150/76 H 95 07/24/19 20:08 36.4 C L 97 H 20 147/73 H 95 07/25/19 05:33 07/25/19 05:33 CT chest and chest x-ray personally reviewed. PG Care Time/CCT Total # of Minutes Spent Total Time Spent with Patient: Total time spent is greater than 50% in coordination of care (as documented) at patient's floor/unit and/or counseling patient: [place] [address] Initial Inpt Care Lvl 3 Patient Type Established Diagnoses Multilobar lung infiltrate R91.8 Dysphagia R13.10 LAD (lymphadenopathy), mediastinal R59.0
[2019-07-25] MEDS: FLUTICASONE/VILANTEROL 200/25MCG 14 PUFFS/INHALER INH SCH (08:43)
[2019-07-25] MEDS: guaiFENesin 600 MG TABCR PO SCH ×2 (08:44→20:49)
[2019-07-25] MEDS: AMLODIPINE BESYLATE 5 MG TAB PO SCH ×2 (08:44→20:49)
[2019-07-25] MEDS ORDERED: VANCOMYCIN HCL 1,250 MG in SODIUM CHLORIDE 0.9% 250 ML IV SCH (09:00)
[2019-07-25] MEDS ORDERED: FUROSEMIDE 40 MG in SYRINGE 0 ML IV ONE (17:00)
--- NOTE | 2019-07-25 19:39 | Hospitalist Progress Note ---
Date of Service July 25, 2019 Assessment & Plan (1) Pneumonia: Bilateral multifocal pneumonia possible aspiration pneumonitis -Admitted with cough: Chronic problem with wheeze CT chest 07/24/2019: Shows progressive multifocal pulmonary areas of parenchymal consolidation and airspace opacity - -Concern for recurrent aspiration; video swallow on 06/24 showing moderate pharyngeal phase dysphagia and scant silent episodes of aspiration. Speech pathology consulted, appreciate input, Bedside evaluation showed sandhya aspiration with thin liquids Regular diet resumed, liquid changed to nectar thick with aspiration precaution Continue outpatient follow-up with speech pathology for dysphasia therapy Pulmonology consulted for chronic cough, reactive airway/wheeze Appreciate input Given CT finding, recommends bronchoscopy and possible biopsy Ordered for n.p.o. past midnight (2) Normocytic normochromic anemia: No sign of bleeding, continue iron supplement (3) Chronic airway disease: - -Attempted PFTs on 07/16 however patient was unable to perform the appropriate maneuvers - patient continue Brio Ellipta Pulmonology consulted, appreciate input (4) HTN (hypertension): -BP controlled, continue amlodipine (5) B-cell lymphoma: On remission Not on any active treatment -Follows with hematology oncology Dr. Mora (6) DVT prophylaxis: -SQ Lovenox CODE STATUS: DNR/DNI Admission and Anticipated Discharge Date Admission Date: July 24, 2019 Subjective Patient has chronic nonproductive cough, denies of any orthopnea, no dyspnea on exertion Has been afebrile No fever or chills, offers no new complain Review of Systems Review of Systems: All systems reviewed & are unremarkable except as noted in HPI & below Constitutional: no fever and no chills Respiratory: + cough (Chronic) and + wheezing; no dyspnea, no dyspnea on exertion and no sputum production Cardiovascular: no chest pain, no dyspnea, no orthopnea, no palpitations, no lightheadedness, no syncope and no edema Gastrointestinal: no abdominal pain, no nausea and no vomiting Physical Exam Constitutional: WD/WN, vitals as above no acute distress Eyes: PERRL, conjunctivae normal, anicteric sclerae ENMT: external ear and nose normal, oropharynx normal Neck: trachea midline, no thyromegaly Respiratory: + cough; no respiratory distress and no labored breathing Auscultation: + diminished lung sounds and + wheezes; no crackles, no rales and no rhonchi Cardiovascular: RRR, no murmur, no edema Gastrointestinal (Abdomen): Inspection/Auscultation: normal bowel sounds Percussion/Palpation: abdomen soft; abdomen nontender Musculoskeletal: no cyanosis or clubbing, extremities motor strength 5/5 Skin: no rashes, warm and dry Neurologic: PERRL, EOMI, accommodation nl, no face palsy, no dysarthria Psychiatric: A+Ox3, euthymic affect Results & Data ([facility]) Vital Signs (Past 12 Hours) Vital Signs Temp Pulse Resp BP Pulse Ox 07/25/19 19:09 94 H 16 92 07/25/19 15:44 93 H 18 96 07/25/19 15:33 36.5 C 97 H 18 169/71 H 93 07/25/19 10:20 87 18 95 Diagnostic Findings CXR IMPRESSION: 1. Mild central pulmonary vascular congestion without overt edema and small bilateral pleural effusions. This has progressed. 2. Progressive bilateral mid to lower lung zone airspace opacities. This may represent a superimposed pneumonia. CT chest: IMPRESSION: 1. Progressive multifocal pulmonary areas of parenchymal consolidation and airspace opacity 2. Small bilateral pleural effusions 3. Persistent mild axillary, mediastinal and hilar lymphadenopathy
[2019-07-25] MEDS: LEVOFLOXACIN/D5W 750 MG/150 ML BAG IV SCH (20:48)
[2019-07-25] MEDS: ENOXAPARIN INJ 40 MG/0.4 ML SYR SQ SCH (20:48)
[2019-07-26] MEDS: D5W AND 1/2NSS 1,000 ML IV SCH (02:50)
[2019-07-26] MEDS: PIPERACILLIN/TAZOBACTAM 3.375 GM in DEXTROSE 5% 100 ML IV SCH ×3 (06:31→22:25)
--- NOTE | 2019-07-26 07:24 | XRay Report ---
XR chest 1V portable HISTORY: Cough. Shortness of breath. COMPARISON: Chest 07/24/2019. FINDINGS: No change in the bilateral lower lung zone airspace opacities. No pneumothorax. The heart r emains mildly enlarged. There is mild central pulmonary vascular congestion which has improved. IMPRESSION: 1. Interval improvement in the mild central pulmonary vascular congestion. 2. Bilateral lower lung zone airspace opacities persist and favor a pneumonia. ACT 112: Negative or not required by law. Electronically signed by: Gelacio Galindo M.D. 07/26/2019 7:23 AM
[2019-07-26] MEDS: AMLODIPINE BESYLATE 5 MG TAB PO SCH ×2 (08:06→20:06)
[2019-07-26] MEDS: guaiFENesin 600 MG TABCR PO SCH ×2 (08:06→20:05)
[2019-07-26] MEDS: FLUTICASONE/VILANTEROL 200/25MCG 14 PUFFS/INHALER INH SCH (08:08)
[2019-07-26] MEDS: ALBUT/IPRATROP 3MG/0.5MG NEB 3 ML VIAL NEB SCH ×4 (08:14→19:18)
[2019-07-26] MEDS ORDERED: VANCOMYCIN TROUGH ONE (08:30)
[2019-07-26] MEDS ORDERED: FUROSEMIDE 40 MG in SYRINGE 0 ML IV ONE (10:15)
[2019-07-26] MEDS ORDERED: BENZONATATE 100 MG CAPSULE PO PRN (13:35)
--- NOTE | 2019-07-26 13:53 | Pulmonology Progress Note ---
Date of Service July 26, 2019 Assessment & Plan (1) Multilobar lung infiltrate: --Multilobar infiltrates with bronchiectasis of the lower lobes Patient has had multiple admissions in the past because of this. Patient does have history of aspiration. There is high likelihood that that is the main etiology of his recurrent infections. Patient also has mediastinal lymphadenopathy especially R4 Follow-up septic work-up, sputum culture, ESR: 43, CRP: 15.1, procalcitonin 0.16, BNP 2281 Continue with Zosyn. MRSA nares was negative will discontinue vancomycin. Sputum culture 07/24/2019 positive for Haemophilus influenza. For the bronchiectasis continue with Mucinex and flutter valve --Asthma Not in exacerbation Continue with Laba/ICS therapy O2 supplementation as needed --Diastolic CHF Keep negative balance Plan: Sputum culture from 07/24/2019 is positive for Haemophilus influenza. Chest x-ray still shows persistent bilateral infiltrates. Continue with aspiration precautions. Continue with antibiotics. 1 more dose of Lasix 40 mg given today Patient will likely benefit from bronchoscopy although I's do think his bronchiectasis and bilateral infiltrates have a high likelihood because of his aspiration. My partner will be taking over the care as of tomorrow will refer the decision of bronchoscopy on him. Please note the above document was generated using voice recognition software. It may contain grammatical, syntax or spelling errors. (2) Dysphagia: (3) LAD (lymphadenopathy), mediastinal: Subjective Patient seen and examined at bedside. No acute distress, no adverse events overnight. Still coughing with occasional phlegm. He still says that it is difficult to for the phlegm to come out. Patient had swallow eval yesterday which again showed patient has aspiration to liquids. Denies any chest pain, no dizziness, no headache, no nausea, no vomiting. Review of Systems Review of Systems: All systems reviewed & are unremarkable except as noted in HPI & below Physical Exam Physical Exam: Constitutional: No acute distress HEENT: EOMI, PERRLA, moist mucous membranes, thick neck Respiratory system: Decreased antibiotic, bilateral lower lobe crackles, no wheeze, no rhonchi CVS: S1-S2 positive, no murmurs or gallops Abdomen: Soft, nontender, nondistended, positive bowel sounds x4 Extremities: +2 pulses bilaterally radialis/ dorsalis pedis, no cyanosis, no edema, no cyanosis Neuro: Awake alert oriented x3 Psych: Normal mood and affect G/U: No Baxter Skin: no rashes, warm and dry Lymphatic: no cervical or axillary lymphadenopathy Results & Data ([facility]) Vital Signs (Past 12 Hours) Vital Signs Temp Pulse Resp BP Pulse Ox 07/26/19 11:33 100 H 18 94 07/26/19 08:16 88 16 96 07/26/19 08:10 36.7 C 96 H 18 145/76 H 95 07/25/19 05:33 07/25/19 05:33 PG Care Time/CCT Total # of Minutes Spent Total Time Spent with Patient: Total time spent is greater than 50% in coordination of care (as documented) at patient's floor/unit and/or counseling patient: Coding Level of Care Code 76262 Subseq Hosp Care Lvl 3 Diagnoses Multilobar lung infiltrate R91.8 Dysphagia R13.10 LAD (lymphadenopathy), mediastinal R59.0
--- NOTE | 2019-07-26 16:17 | Hospitalist Progress Note ---
Date of Service July 26, 2019 Assessment & Plan (1) Pneumonia: Bilateral multifocal pneumonia possible aspiration pneumonitis -Antibiotic adjusted to IV Zosyn only video swallow on 06/24 showing moderate pharyngeal phase dysphagia and scant silent episodes of aspiration. Speech pathology consulted, appreciate input-oropharyngeal dysphagia with evidence of aspiration noted with thick liquids Regular diet resumed, liquid changed to nectar thick with aspiration precaution Continue outpatient follow-up with speech pathology for dysphasia therapy -Admitted with cough: Chronic problem with wheeze CT chest 07/24/2019: Shows progressive multifocal pulmonary areas of parenchymal consolidation and airspace opacity - Pulmonology consulted for chronic cough, reactive airway/wheeze Appreciate input -given CT chest finding patient likely will benefit with bronchoscopy and biopsy, CHF with diastolic dysfunction/HFp EF: Patient was given IV fluids on admission for possible dehydration, presentation with infections, pneumonia Chest x-ray shows pulmonary vascular congestion, IV fluids discontinued Given IV Lasix Volume status remains stable (2) Normocytic normochromic anemia: continue iron supplement (3) Chronic airway disease: - -Attempted PFTs on 07/16 however patient was unable to perform the appropriate maneuvers - patient continue Brio Fabta Pulmonology consulted, appreciate input (4) HTN (hypertension): -BP controlled, continue amlodipine (5) B-cell lymphoma: On remission Not on any active treatment -Follows with hematology oncology Dr. oMra (6) DVT prophylaxis: -SQ Lovenox CODE STATUS: DNR/DNI Disposition: Expected to be discharged home when medically stable Patient's given update over the phone Admission and Anticipated Discharge Date Admission Date: July 24, 2019 Subjective Patient reports of feeling fine, has chronic nonproductive cough, no worsening of symptoms No fever or chills Frustrated that he could not have the bronchoscopy over the weekend, may need to stay until Sunday for the procedure Review of Systems Review of Systems: All systems reviewed & are unremarkable except as noted in HPI & below Respiratory: + cough (Chronic) and + wheezing (Chronic); no change in sputum, no dyspnea and no dyspnea on exertion Physical Exam Constitutional: WD/WN, vitals as above no acute distress Eyes: PERRL, conjunctivae normal, anicteric sclerae ENMT: external ear and nose normal, oropharynx normal Neck: trachea midline, no thyromegaly Respiratory: + cough; no respiratory distress and no labored breathing Auscultation: + diminished lung sounds and + wheezes; no crackles, no rales and no rhonchi Cardiovascular: RRR, no murmur, no edema Gastrointestinal (Abdomen): Inspection/Auscultation: normal bowel sounds Percussion/Palpation: abdomen soft; abdomen nontender Musculoskeletal: no cyanosis or clubbing, extremities motor strength 5/5 Skin: no rashes, warm and dry Neurologic: PERRL, EOMI, accommodation nl, no face palsy, no dysarthria Psychiatric: A+Ox3, euthymic affect Results & Data ([facility]) Vital Signs (Past 12 Hours) Vital Signs Temp Pulse Resp BP Pulse Ox 07/26/19 15:40 36.4 C L 75 18 149/73 H 90 07/26/19 15:26 94 H 18 94 07/26/19 11:33 100 H 18 94 07/26/19 08:16 88 16 96 07/26/19 08:10 36.7 C 96 H 18 145/76 H 95
[2019-07-26] MEDS: ACETAMINOPHEN 325 MG TAB PO PRN (19:54)
[2019-07-26] MEDS: ENOXAPARIN INJ 40 MG/0.4 ML SYR SQ SCH (20:08)
[2019-07-26] MEDS: GUAIFENESIN/DEXTROM SYRUP 200MG/20MG 10ML UDC PO PRN (20:09)
[2019-07-27] MEDS: PIPERACILLIN/TAZOBACTAM 3.375 GM in DEXTROSE 5% 100 ML IV SCH ×3 (05:47→23:42)
[2019-07-27 06:13] LABS: Est GFR (African American) 97.2; Est GFR (Non-African American) 83.9
[2019-07-27] MEDS: ALBUT/IPRATROP 3MG/0.5MG NEB 3 ML VIAL NEB SCH ×4 (07:47→19:10)
--- NOTE | 2019-07-27 07:51 | XRay Report ---
XR chest 1V portable HISTORY: 73 years-old Male f/u follow-up study in a patient with bibasilar consolidation COMPARISON: Chest radiograph 07/26/2019, chest CT 07/24/2019 TECHNIQUE: Portable AP view of the chest FINDINGS: Cardiomegaly with persistent pulmonary vascular congestion. No pneumothorax. Small left and trace rig ht pleural effusions have slightly increased in size. Persistent bibasilar consolidative opacities. D egenerative changes of the shoulders and spine. IMPRESSION: 1. Cardiomegaly with pulmonary vascular congestion. 2. Unchanged bibasilar consolidative opacities suggestive of pneumonia or aspiration pneumonitis. 3. Trace right and small left pleural effusions have slightly increased in size. ACT 112: Negative or not required by law. The above report was generated using voice recognition software. It may contain grammatical, syntax o r spelling errors. Electronically signed by: Yoan Carrasco M.D. 07/27/2019 7:50 AM
[2019-07-27] MEDS: FLUTICASONE/VILANTEROL 200/25MCG 14 PUFFS/INHALER INH SCH (08:12)
[2019-07-27] MEDS: AMLODIPINE BESYLATE 5 MG TAB PO SCH ×2 (08:12→20:39)
[2019-07-27] MEDS: guaiFENesin 600 MG TABCR PO SCH ×2 (08:12→20:39)
[2019-07-27] MEDS: GUAIFENESIN/DEXTROM SYRUP 200MG/20MG 10ML UDC PO PRN ×2 (09:21→20:39)
--- NOTE | 2019-07-27 10:40 | Pulmonology Progress Note ---
Date of Service July 27, 2019 Assessment & Plan (1) LAD (lymphadenopathy), mediastinal: Impression: 73-year-old male who I had the opportunity of seeing in the hospital and in the clinic. He has issues with chronic aspiration and recurrent pneumonia. I suspect his presentation this time around is again due to the recurrent aspiration. He is better with antibiotics. He continues to suffer from cough issues. He is being evaluated by speech therapy. Recommendations: 1. Aspiration pneumonia: Sputum culture positive for beta-lactamase positive Haemophilus. He is currently day #4 Zosyn which should be adequate. Anticipate he can be de-escalated to Augmentin. 2. Abnormal CT scan: The patient has had issues with fleeting infiltrates. Again I suspect these are likely related to recurrent aspiration events. Agree with continued speech therapy evaluation. Given the fact the patient has had no recurrent issues and there is been some concern about his underlying pulmonic process, it does seem reasonable to proceed with bronchoscopy with BAL plus or minus transbronchial biopsies to exclude underlying pathology. We will try and set this up for tomorrow. N.p.o. after midnight. 3. Adenopathy: He does have adenopathy noted on his recent CT scan however the lymph nodes appear radiographically benign given the fatty hilum. The nodes in the axilla appear more prominent and may be more amenable to surgical excision. In addition obtaining a complete lymph node would be better than needle aspirate for pathologic analysis. Defer to primary service as to whether or not this should be accomplished with general surgery during this hospitalization or in the outpatient setting. He is mildly anemic but not leukopenic or thrombocytopenic. (2) Pneumonia: (3) Multilobar lung infiltrate: (4) Aspiration of food: Subjective Patient feels better. He has less cough. He did take some cough medicine last night which she states was highly beneficial in improving his symptoms and he was able to sleep. He denies any chest pain. No fevers chills or night sweats. He is not on supplemental oxygen. Review of Systems Review of Systems: Unchanged from prior Physical Exam Constitutional: WD/WN, vitals as above no acute distress Eyes: PERRL, conjunctivae normal, anicteric sclerae ENMT: external ear and nose normal, oropharynx normal Neck: trachea midline, no thyromegaly Respiratory: + cough; no respiratory distress and no labored breathing Auscultation: + diminished lung sounds and + wheezes; no crackles, no rales and no rhonchi Cardiovascular: RRR, no murmur, no edema Gastrointestinal (Abdomen): Inspection/Auscultation: normal bowel sounds Percussion/Palpation: abdomen soft; abdomen nontender Musculoskeletal: no cyanosis or clubbing, extremities motor strength 5/5 Skin: no rashes, warm and dry Neurologic: PERRL, EOMI, accommodation nl, no face palsy, no dysarthria Psychiatric: A+Ox3, euthymic affect Results & Data ([facility]) Vital Signs (Past 12 Hours) Vital Signs Temp Pulse Resp BP Pulse Ox 07/27/19 07:47 89 16 96 07/26/19 23:25 36.5 C 89 20 135/74 95 Laboratory Results 07/25/19 05:33 07/27/19 05:19 Diagnostic Findings Chest x-ray today independently reviewed. Bibasilar parenchymal patchy infiltrates noted. PG Care Time/CCT Total # of Minutes Spent Total Time Spent with Patient: Total time spent is greater than 50% in coordination of care (as documented) at patient's floor/unit and/or counseling patient: Coding Level of Care Code 48500 Subseq Hosp Care Lvl 3 Diagnoses LAD (lymphadenopathy), mediastinal R59.0 Pneumonia J18.9 Multilobar lung infiltrate R91.8 Aspiration of food T17.920A
--- NOTE | 2019-07-27 18:33 | Hospitalist Progress Note ---
Date of Service July 27, 2019 Assessment & Plan (1) Pneumonia: Bilateral multifocal pneumonia possible to chronic aspiration pneumonitis video swallow on 06/24 showing moderate pharyngeal phase dysphagia and scant silent episodes of aspiration. Speech pathology consulted, appreciate input-oropharyngeal dysphagia with evidence of aspiration noted with thick liquids Regular diet resumed, liquid changed to nectar thick with aspiration precaution Patient will need continue outpatient follow-up with speech pathology for dysphasia therapy Continue with IV Zosyn for anaerobic coverage day #4 Antibiotic will be changed to p.o. Augmentin on discharge Appreciate input from pulmonology CT chest 07/24/2019: Shows progressive multifocal pulmonary areas of parenchymal consolidation and airspace opacity - Appreciate input -given CT chest finding patient likely will benefit with bronchoscopy and biopsy, CHF with diastolic dysfunction/HFp EF: Patient denies of any orthopnea, no shortness of breath or dyspnea on exertion Chest x-ray shows pulmonary vascular congestion, IV fluids discontinued Given IV Lasix Volume status remains stable (2) Normocytic normochromic anemia: continue iron supplement (3) Chronic airway disease: - -Attempted PFTs on 07/16 however patient was unable to perform the appropriate maneuvers - patient continue Brdanie Johnston Pulmonology consulted, appreciate input (4) HTN (hypertension): -BP controlled, continue amlodipine (5) B-cell lymphoma: On remission Not on any active treatment -Follows with hematology oncology Dr. Mora (6) DVT prophylaxis: -We will hold SQ Lovenox For planned bronchoscopy and possible biopsy tomorrow CODE STATUS: DNR/DNI Disposition: Possible bronchoscopy tomorrow Discharged home when medically stable Admission and Anticipated Discharge Date Admission Date: July 24, 2019 Subjective Patient feels much better today cough has improved after taking as needed Robitussin DM No audible wheeze, no shortness of breath or dyspnea on exertion No fever or chills Review of Systems Review of Systems: All systems reviewed & are unremarkable except as noted in HPI & below Constitutional: no fever and no chills Respiratory: no cough, no dyspnea, no dyspnea on exertion and no wheezing Cardiovascular: no orthopnea, no palpitations and no edema Physical Exam Constitutional: WD/WN, vitals as above no acute distress Eyes: PERRL, conjunctivae normal, anicteric sclerae ENMT: external ear and nose normal, oropharynx normal Neck: trachea midline, no thyromegaly Respiratory: + cough; no respiratory distress and no labored breathing Auscultation: + diminished lung sounds and + wheezes; no crackles, no rales and no rhonchi Cardiovascular: RRR, no murmur, no edema Gastrointestinal (Abdomen): Inspection/Auscultation: normal bowel sounds Percussion/Palpation: abdomen soft; abdomen nontender Musculoskeletal: no cyanosis or clubbing, extremities motor strength 5/5 Skin: no rashes, warm and dry Neurologic: PERRL, EOMI, accommodation nl, no face palsy, no dysarthria Psychiatric: A+Ox3, euthymic affect Results & Data ([facility]) Vital Signs (Past 12 Hours) Vital Signs Temp Pulse Resp BP Pulse Ox 07/27/19 16:02 90 18 95 07/27/19 15:43 36.5 C 87 18 139/82 94 07/27/19 11:27 90 16 95 07/27/19 07:47 89 16 96
[2019-07-27] MEDS: ACETAMINOPHEN 325 MG TAB PO PRN (20:39)
[2019-07-28] MEDS: PIPERACILLIN/TAZOBACTAM 3.375 GM in DEXTROSE 5% 100 ML IV SCH (06:16)
[2019-07-28] MEDS: ALBUT/IPRATROP 3MG/0.5MG NEB 3 ML VIAL NEB SCH ×3 (07:14→15:30)
--- NOTE | 2019-07-28 07:41 | XRay Report ---
XR chest 1V portable CLINICAL HISTORY: 73 years-old Male presenting with f/u. TECHNIQUE: Portable upright AP view of the chest was obtained. COMPARISON: 07/27/2019. FINDINGS: Atherosclerosis of the aortic arch. Cardiac silhouette enlarged. Mild pulmonary vascular prominence. Persistent dense opacities in the mid to lower lungs. The left basilar consolidation is fairly well-d efined peripherally with suspected central lower density. Prominence of the bilateral luis. Trace roshan ateral pleural effusions. No pneumothorax. Degenerative changes of the thoracic spine. Degenerative c hanges of the shoulders. Upper abdomen normal. IMPRESSION: 1. Persistent bilateral mid to basilar predominant dense infiltrates. The involving appearance of th e left basilar infiltrate raises concern for developing necrosis/abscess. 2. Bilateral hilar prominence likely relates to underlying hilar lymphadenopathy. 3. Cardiomegaly with mild volume overload. ACT 112: Negative or not required by law. Electronically signed by: Krishna Adams M.D. 07/28/2019 7:39 AM
[2019-07-28] MEDS: AMLODIPINE BESYLATE 5 MG TAB PO SCH (08:17)
[2019-07-28] MEDS: guaiFENesin 600 MG TABCR PO SCH (08:17)
[2019-07-28] MEDS: FLUTICASONE/VILANTEROL 200/25MCG 14 PUFFS/INHALER INH SCH (08:17)
--- NOTE | 2019-07-28 09:47 | History & Physical Bridge Note ---
Date of Service July 28, 2019 History & Physical Bridge Note I have examined the patient, reviewed the History & Physical and in the interval since the performance of the History & Physical I have noted the following changes of clinical significance: no changes noted
--- NOTE | 2019-07-28 09:48 | Pre Anesthesia Assessment ---
Date of Service July 28, 2019 Pre Sedation Assessment Vital Signs Temp Pulse Pulse Resp BP Pulse Ox 07/28/19 09:45 88 14 140/88 94 07/28/19 07:29 36.6 C 81 18 149/82 H 93 07/28/19 07:17 79 18 92 07/28/19 03:12 36.5 C 80 18 115/59 L 92 07/27/19 23:06 36.5 C 86 17 132/78 94 07/27/19 19:11 91 H 18 94 07/27/19 16:02 90 18 95 07/27/19 15:43 36.5 C 87 18 139/82 94 07/27/19 11:27 90 16 95 Pre-Sedation Airway Assessment Smoking Status: Never smoker Hx Sleep Apnea: No Short, Thick Neck: Yes Thyromental Distance: > or= 3.5 Finger Breadths Oral Cavity: + WNL Mallampati Class: II ASA: ASA3 NPO Status Date of Last Intake of Fluids: 07/27/19 Time of Last Intake of Fluids: 21:30 Date of Last Intake of Solid Food: 07/27/19 Time of Last Intake of Solid Foods: 21:30 Notes The planned sedation has been discussed with the patient. Informed Consent was obtained. I have identified the patient, determined the appropriateness of sedation and have assessed the patient immediately prior to the procedure. All medicine(s) and interventions are by my order.
[2019-07-28] MEDS ORDERED: LIDOCAINE HCL 2% (LOCAL) INJ 50 ML VIAL INFIL STA (10:21)
[2019-07-28] MEDS ORDERED: MIDAZOLAM HCL 1 MG/ML 2ML VIAL IV STA (10:21)
[2019-07-28] MEDS ORDERED: OXYMETAZOLINE 0.05% 30 ML BTL ONE (10:21)
[2019-07-28] MEDS ORDERED: LIDOCAINE 4% INH SOLN 4 ML BTL NAE ONE (10:21)
[2019-07-28] MEDS ORDERED: LIDOCAINE HCL VISCOUS SOLN 2% 15 ML UDC TOP ONE (10:21)
--- NOTE | 2019-07-28 10:21 | Post Anesthesia Assessment ---
Date of Service July 28, 2019 Post Sedation Assessment Vital Signs Temp Pulse Pulse Resp BP Pulse Ox 07/28/19 10:20 93 H 16 105/71 96 07/28/19 10:15 92 H 16 157/76 H 98 07/28/19 10:10 97 H 14 159/83 H 95 07/28/19 10:00 92 H 14 145/89 H 93 07/28/19 09:45 88 14 140/88 94 07/28/19 07:29 36.6 C 81 18 149/82 H 93 07/28/19 07:17 79 18 92 07/28/19 03:12 36.5 C 80 18 115/59 L 92 07/27/19 23:06 36.5 C 86 17 132/78 94 07/27/19 19:11 91 H 18 94 07/27/19 16:02 90 18 95 07/27/19 15:43 36.5 C 87 18 139/82 94 07/27/19 11:27 90 16 95 Recovery Score Activity: Moves 2 extremities Respiration: Dyspnea/Limited Breathing Circulation: +/-20% PreAnes Value Oxygen Saturation: O2 needed for >90% Post Anesthesia Score: 5 Discharge Sedation Level of Care: Fast Track Phase II Post Sedation Plan On clinical assessment, the patient appears to have tolerated the sedation without complications. Patient is recovering as anticipated. Patient will continue to be monitored by nursing and may be discharged when sedation discharge criteria are met per below protocol. Upon Completions of procedure up to 15 minutes continue every 5 minute vital signs and the P.A.R. score; then discharge to a Phase I or Fast Track to Phase II per the following guidelines: * Discharge Patient to appropriate Phase II area if PAR is 8 or greater or return to pre- procedure baseline. The post - procedure orders will be as directed. * If PAR score is less than 8 or not return to pre-procedure baseline then patient will follow Phase I monitoring till PAR is reached for Phase II. The Phase I may be done in procedure room or may call to secure a Phase I area. * If naloxone or flumazenil are used for reversal, hold in Phase I for lani nued monitoring from when last reversal dose was given for a minimum of 60 minutes or longer pending the nurse and/or physician discretion of patient condition before discharge to Phase II. Please call the Sedation Physician to re-evaluate and complete post-note for discharge to Phase II area. Do NOT discharge from procedure sedation or Phase 1 until post- sedation evaluation note is complete by procedure /sedation MD Sedation Discharge Instructions to be given to the patient at discharge to home.
[2019-07-28] MEDS ORDERED: fentaNYL citrate 100 MCG/2 ML VIAL IV ONE (10:24)
--- NOTE | 2019-07-28 10:24 | Procedure Note ---
Procedure Note: Bronchoscopy Procedure Procedure: Fiberoptic bronchoscopy Therapeutic aspiration of secretions, initial Conscious sedation Provider: Demetrius Jackson MD Consent: Signed by patient and timeout verified prior to procedure. Sedation start: 1007 Sedation end: 1020 Conscious sedation: 150 mcg fentanyl, 6 mg Versed, topical lidocaine per RT protocol Procedure: Patient was brought to the bronchoscopy suite. Consent was verified. Appropriate radiographic studies had been reviewed prior to the procedure. Standard monitoring was applied. Oxygen was administered. After topical anesthesia of the airways per respiratory therapy protocol, the fiberoptic scope was advanced through the left nares. Oropharynx was unre markable. Vocal cords were visualized and were normal in function and appearance. There were thick mucoid secretions present at the level of the glottis. Topical anesthesia of the cords was achieved with instillation of lidocaine through the scope. Scope was then passed through the vocal cords. The trachea was tortuous. Main marilynn was sharp. 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 Anesthesia of the lower airways was achieved with instillation of lidocaine through the scope. A sequential and systematic exam ination of the lower airways was conducted. The right-sided airways were mildly hyperemic but patent and the mucosa appeared inflamed. Left-sided airways were patent and the mucosa appeared erythematous and irritated. There were copious mucopurulent secretions identified in the bilateral lower lobes which were collected for microbiologic and cytologic analysis. The bronchoscope was then removed from the airways. The patient tolerated the procedure well without obvious complication. Patient was returned to the recovery room. Impression: 1. Mucoid secretions within the airway consistent with probable bronchopneumonia. 2. Irritated and erythematous airways. 3. Patient exhibited significant cough during the procedure and given the appearance of the secretions and clinical presentation consistent with pneumonia, decision was made not to pursue biopsy of lymph nodes or transbronchial lung biopsies. We will continue radiographic surveillance
--- NOTE | 2019-07-28 10:29 | Pulmonology Progress Note ---
Date of Service July 28, 2019 Assessment & Plan (1) LAD (lymphadenopathy), mediastinal: Impression: 73-year-old male who I had the opportunity of seeing in the hospital and in the clinic. He has issues with chronic aspiration and recurrent pneumonia. I suspect his presentation this time around is again due to the recurrent aspiration. He is better with antibiotics. He continues to suffer from cough issues. He is being evaluated by speech therapy. Recommendations: 1. Aspiration pneumonia: Sputum culture positive for beta-lactamase positive Haemophilus. He is currently day #5 Zosyn which should be adequate. Anticipate he can be de-escalated to Augmentin. 2. Abnormal CT scan: Bronchoscopy today with mucopurulent secretions in the lower lobe consistent with the patient's diagnosis of bronchopneumonia. No endobronchial lesions identified. There was significant tracheal/bronchial malacia identified. May consider outpatient sleep study and nocturnal positive airway pressure if appropriate. 3. Adenopathy: He does have adenopathy noted on his recent CT scan however the lymph nodes appear radiographically benign given the fatty hilum. The nodes in the axilla appear more prominent and may be more amenable to surgical excision. In addition obtaining a complete lymph node would be better than needle aspirate for pathologic analysis. Defer to primary service as to whether or not this should be accomplished with general surgery during this hospitalization or in t he outpatient setting. He is mildly anemic but not leukopenic or thrombocytopenic. Anticipate the patient can likely be dismissed from the hospital within the next well to 24 hours. Outpatient pulmonary telephone follow-up will be conducted in 7 to 10 days. (2) Pneumonia: (3) Aspiration of food: Subjective Patient seen and examined prior to bronchoscopy. Electronic medical record reviewed. The patient continues to experience a mild cough. He is not expectorating significant phlegm currently. No acute changes overnight. Review of Systems Review of Systems: Unchanged from prior Physical Exam 2 Constitutional: WD/WN, vitals as above no acute distress Eyes: PERRL, conjunctivae normal, anicteric sclerae ENMT: Mallampati Class: II Neck: trachea midline, no thyromegaly Respiratory: + cough; no respiratory distress and no labored breathing Auscultation: + diminished lung sounds and + wheezes; no crackles, no rales and no rhonchi Cardiovascular: RRR, no murmur, no edema Gastrointestinal (Abdomen): Inspection/Auscultation: normal bowel sounds Percussion/Palpation: abdomen soft; abdomen nontender Musculoskeletal: no cyanosis or clubbing, extremities motor strength 5/5 Skin: no rashes, warm and dry Neurologic: PERRL, EOMI, accommodation nl, no face palsy, no dysarthria Psychiatric: A+Ox3, euthymic affect Results & Data ([facility]) Vital Signs (Past 12 Hours) Vital Signs Temp Pulse Pulse Resp BP Pulse Ox 07/28/19 10:20 93 H 16 105/71 96 07/28/19 10:15 92 H 16 157/76 H 98 07/28/19 10:10 97 H 14 159/83 H 95 07/28/19 10:00 92 H 14 145/89 H 93 07/28/19 09:45 88 14 140/88 94 07/28/19 07:29 36.6 C 81 18 149/82 H 93 07/28/19 07:17 79 18 92 07/28/19 03:12 36.5 C 80 18 115/59 L 92 07/27/19 23:06 36.5 C 86 17 132/78 94 Laboratory Results 07/25/19 05:33 07/27/19 05:19 Diagnostic Findings No new imaging PG Care Time/CCT Total # of Minutes Spent Total Time Spent with Patient: Total time spent is greater than 50% in coordination of care (as documented) at patient's floor/unit and/or counseling patient: Coding Level of Care Code 85297 Subseq Hosp Care Lvl 3 Diagnoses LAD (lymphadenopathy), mediastinal R59.0 Pneumonia J18.9 Aspiration of food T17.920A Time Spent (min) 40
[2019-07-28 12:56] LABS: Eosinophil Body Fluid Man 0 %; Fluid Mono/Macrophage 8 %; Lymphocyte Body Fluid Man 5 %; Neutrophil Body Fluid Man 87 %
--- NOTE | 2019-07-28 13:42 | Hospitalist Progress Note ---
Date of Service July 28, 2019 Assessment & Plan (1) Pneumonia: Bilateral multifocal pneumonia possible to chronic aspiration pneumonitis Status post bronchoscopy today, Bronchoscopy showed mucopurulent secretion in the lower lobe, suggestive of chronic aspiration pneumonitis Bronchoscopy finding discussed with pulmonology Dr. Jackson Patient treated with IV Zosyn day #5 Plan to discharge home later today, after patient adequately recovers from anesthesia, and feels well antibiotic changed to p.o. Augmentin for 5 more days, total 10 days of treatment Outpatient pulmonology clinic telephone follow-up with CAITLIN Camarena in 7 to 10 days video swallow on 06/24 showing moderate pharyngeal phase dysphagia and scant silent episodes of aspiration. Speech pathology consulted, appreciate input-oropharyngeal dysphagia with evidence of aspiration noted with thick liquids Known history of silent aspiration, recurrent pneumonitis, aspiration pneumonia leading to multiple hospital admissions since April 2019 As per speech pathology recommendation, Patient can have regular consistency diet , liquid changed to nectar thick with aspiration precaution No Straw Patient will need continue outpatient follow-up with speech pathology for dysphasia therapy Treated with IV Zosyn for anaerobic coverage day #5 Antibiotic changed to p.o. Augmentin for 5 more days of treatment CHF with diastolic dysfunction/HFp EF: Resolved after given 1 dose of IV Lasix Patient denies of any orthopnea, no shortness of breath or dyspnea on exertion Volume status remains stable (2) Normocytic normochromic anemia: continue iron supplement (3) Chronic airway disease: - Continue on outpatient inhalers of Breo/Ellipta Telephone follow-up with pulmonology at [facility] clinic in 1 week (4) HTN (hypertension): -BP controlled, continue amlodipine (5) B-cell lymphoma: On remission Not on any active treatment -Follows with hematology oncology Dr. Mora (6) DVT prophylaxis: -Subcu Lovenox CODE STATUS: DNR/DNI Disposition: Plan for discharge home today Plan of care, and the bronchoscopy finding updated to patient's Mrs. Aurelia Hansen over phone Admission and Anticipated Discharge Date Admission Date: July 24, 2019 Subjective Patient underwent bronchoscopy today Had no complication from the procedure, Still very groggy/sedated from the procedure Hypoxia, no respiratory distress noted Review of Systems Review of Systems: ROS per HPI, all other systems reviewed and negative Physical Exam Constitutional: WD/WN, vitals as above no acute distress Eyes: PERRL, conjunctivae normal, anicteric sclerae ENMT: external ear and nose normal, oropharynx normal Neck: trachea midline, no thyromegaly Respiratory: no respiratory distress and no labored breathing Auscultation: no rales and no rhonchi Cardiovascular: RRR, no murmur, no edema Gastrointestinal (Abdomen): Inspection/Auscultation: normal bowel sounds Percussion/Palpation: abdomen soft; abdomen nontender Musculoskeletal: no cyanosis or clubbing, extremities motor strength 5/5 Skin: no rashes, warm and dry Neurologic: PERRL, EOMI, accommodation nl, no face palsy, no dysarthria Psychiatric: A+Ox3, euthymic affect Results & Data ([facility]) Vital Signs (Past 12 Hours) Vital Signs Temp Pulse Pulse Resp BP Pulse Ox 07/28/19 12:44 81 16 147/82 H 98 07/28/19 11:27 36.5 C 85 18 108/64 98 07/28/19 11:17 86 18 98 07/28/19 11:03 36.7 C 86 18 130/73 100 07/28/19 10:45 90 14 118/67 99 07/28/19 10:42 88 14 124/72 99 07/28/19 10:40 88 14 124/72 99 07/28/19 10:35 90 14 132/79 100 07/28/19 10:30 90 16 122/78 100 07/28/19 10:25 88 16 126/69 100 07/28/19 10:20 93 H 16 105/71 96 07/28/19 10:15 92 H 16 157/76 H 98 07/28/19 10:10 97 H 14 159/83 H 95 07/28/19 10:00 92 H 14 145/89 H 93 07/28/19 09:45 88 14 140/88 94 07/28/19 07:29 36.6 C 81 18 149/82 H 93 07/28/19 07:17 79 18 92 07/28/19 03:12 36.5 C 80 18 115/[address] chest 07/24/2019: Shows progressive multifocal pulmonary areas of parenchymal consolidation and airspace opacity
[2019-07-28] MEDS ORDERED: AMOXICILLIN/CLAVULANATE 875 MG TAB PO SCH (13:45)
--- NOTE | 2019-07-29 12:21 | Discharge Summary ---
Date of Service July 29, 2019 Admission HPI Per Admitting Provider 73-year-old male who was sent to the ED by outpatient pulmonary provider for evaluation of worsening pneumonia. Patient admitted to [facility] 06/26 through 06/27 for pneumonia after outpatient sputum culture showed Zygomycetes. Pulmonary evaluated the patient and felt that it was highly unlikely that patient had an active fungal pneumonia. Patient followed up with pulmonary on 07/02 and was placed on 10 days of Augmentin. Patient reports no improvement in his symptoms after completing this course. He was seen again in the clinic on 07/16. PFTs were attempted however patient was unable to complete the maneuvers appr opriately. Pneumonia was felt to be due to recurrent aspiration. Patient has been following with speech therapy. He reports compliance with swallowing maneuvers. Patient reports that he has had continued cough since being discharged in the hospital. Reports he has not been worsening however has not been improving either. Reports that it is productive for a milky/white-colored sputum. He denies fevers and chills. No chest pain. He reports chronic exertional shortness of breath which is unchanged from baseline. Denies lightheadedness, dizziness, diaphoresis, syncopal events. No abdominal pain, nausea, vomiting, diarrhea. He denies any urinary symptoms. Patient was seen in the pulmonary clinic again today for persistent symptoms. He was found to be hypoxic on room air at 88%. This improved with oxygen 2 L via nasal cannula. CXR was obtained and showed progressive bilateral mid to lower lung zone airspace opacities. in the ED, patient is saturating well on room air. WBC 12 K. Patient was given IV Zosyn and nebulizer treatment. Principal Diagnosis ASPIRATION PNEUMONIA Discharge Exam Constitutional WD/WN, vitals as above no acute distress Eyes PERRL, conjunctivae normal, anicteric sclerae ENMT external ear and nose normal, oropharynx normal Neck trachea midline, no thyromegaly Respiratory no respiratory distress and no labored breathing Auscultation: no rales and no rhonchi Cardiovascular RRR, no murmur, no edema Gastrointestinal (Abdomen) Inspection/Auscultation: normal bowel sounds Percussion/Palpation: abdomen soft; abdomen nontender Musculoskeletal no cyanosis or clubbing, extremities motor strength 5/5 Skin no rashes, warm and dry Neurologic PERRL, EOMI, accommodation nl, no face palsy, no dysarthria Psychiatric A+Ox3, euthymic affect Discharge Data Allergies Allergy/AdvReac Type Severity Reaction Status Date / Time No Known Allergies Allergy Verified 07/24/19 13:12 Consultations 07/24/19 18:32 ED Decision to Admit Stat 07/24/19 20:08 Consult Pulmonology Routine Procedures Performed Operation Date: 07/25/19 12:00 <No data on this case meets the specified criteria> Operation Date: 07/28/19 10:00 Actual Procedures p Bronchoscopy (Bilateral) - Demetrius Jackson MD Ordered Studies 07/24/19 20:08 CT chest w con Routine Hospital Course (1) Pneumonia: Bilateral multifocal pneumonia possible to chronic aspiration pneumonitis Status post bronchoscopy today, Bronchoscopy showed mucopurulent secretion in the lower lobe, suggestive of chronic aspiration pneumonitis Bronchoscopy finding discussed with pulmonology Dr. Jackson Patient treated with IV Zosyn day #5 Plan to discharge home later today, after patient adequately recovers from anesthesia, and feels well antibiotic changed to p.o. Augmentin for 5 more days, total 10 days of treatment Outpatient pulmonology clinic telephone follow-up with CAITLNI Camarena in 7 to 10 days video swallow on 06/24 showing moderate pharyngeal phase dysphagia and scant silent episodes of aspiration. Speech pathology consulted, appreciate input-oropharyngeal dysphagia with evidence of aspiration noted with thick liquids Known history of silent aspiration, recurrent pneumonitis, aspiration pneumonia leading to multiple hospital admissions since April 2019 As per speech pathology recommendation, Patient can have regular consistency diet , liquid changed to nectar thick with aspiration precaution No Straw Patient will need continue outpatient follow-up with speech pathology for dysphasia therapy Treated with IV Zosyn for anaerobic coverage day #5 Antibiotic changed to p.o. Augmentin for 5 more days of treatment CHF with diastolic dysfunction/HFp EF: Resolved after given 1 dose of IV Lasix Patient denies of any orthopnea, no shortness of breath or dyspnea on exertion Volume status remains stable (2) Normocytic normochromic anemia: continue iron supplement (3) Chronic airway disease: - Continue on outpatient inhalers of Breo/Ellipta Telephone follow-up with pulmonology at [facility] clinic in 1 week (4) HTN (hypertension): -BP controlled, continue amlodipine (5) B-cell lymphoma: On remission Not on any active treatment -Follows with hematology oncology Dr. Morgan (6) DVT prophylaxis: -Subcu Lovenox CODE STATUS: DNR/DNI Disposition: Plan for discharge home today Plan of care, and the bronchoscopy finding updated to patient's Mrs. Aurelia Hansen over phone Total Time Total Time Spent Total Time Spent (In Minutes): 35 mins Total Time Includes: Examination of the Patient, Discharge Planning, Medication Reconciliation and Communication With Other Providers Discharge Plan Discharge Items Patient Disposition: Home - Self-Care Reason For Visit: PNEUMONIA Discharge Diagnosis: ASPIRATION PNEUMONIA Condition on Discharge: Good Activity: Resume your previous activity Non-emergency contact: Primary Care Provider Call non-emergency contact if: you have any medication questions Follow-up/Referrals: Natalie Abarca CRNP [Nurse Practitioner] - 08/04/19 2:00 pm (TELEPHONE FOLLOW UP WITH NATALIE TUCKER on Sunday08/04/2019 @ 2pm ) Charli Flowers [Primary Care Provider] - Diet: Heart Healthy Liquid Consistency: [place] thick Addtl Attending Provider Instructions: FOLLOW UP WITH FAMILY PHYSICIAN [facility] A [facility] WITH NATALIE TUCKER TELEPHONE FOLLOW UP ON Sunday08/04/2019 ANTIBIOTIC : AUGMENTIN 1 TABLET TWICE DAILY FOR 5 DAYS -FOR PNEUMONIA ROBITUSSIN-DM SYRUP BY MOUTH 10 ML EVERY 6 HRS NEEDED FOR COUGH ( OVER THE COUNTER ) DIET : REGULAR CONSISTENCY DIET NECTAR THICK LIQUID CONTINUE OUT PATIENT FOLLOW UP WITH SPEECH PATHOLOGY Pending Studies at Discharge: No Stand-Alone Forms: My [facility] [employer], Smoking Cessation Medications and DC Order Prescriptions: New amoxicillin-pot clavulanate [Augmentin] 875-125 mg Tablet 1 tab PO BIDM Qty: 10 RF: 0 Robitussin Cough-Chest Lupillo DM 5-100 mg/5 mL Liquid 10 ml PO Q6H PRN (Reason: COUGH) Qty: 1 RF: 0 Continued ipratropium-albuterol 0.5 mg-3 mg(2.5 mg base)/3 mL solution for nebulization 3 ml INH Q6H PRN (Reason: wheezing) Qty: 90 RF: 3 benzonatate 100 mg capsule 100 mg PO BID PRN (Reason: cough) Qty: 30 RF: 2 ipratropium-albuterol 0.5 mg-3 mg(2.5 mg base)/3 mL solution for nebulization 3 ml INH Q6H PRN (Reason: wheezing) 90 Days Qty: 180 RF: 3 amlodipine 5 mg tablet 5 mg PO BID RF: 0 Breo Ellipta 200-25 mcg/dose blister with device 1 inh INHALATION BID RF: 0 ProAir RespiClick 90 mcg/actuation aerosol powdr breath activated 1 inh INHALATION Q4H PRN (Reason: Shortness Of Breath Or Wheezing) RF: 0 Discharge Orders: Discharge Order (Routine); Ordered 07/28/19 Ordered By: Di Aguirre Admission Data Admit Date/Time: 07/24/19 18:44 Attending Provider: Di Aguirre Admit Provider: Lamonte Coffey Primary Care Provider: Charli Flowers Other Providers: Lamonte Coffey ; Cee Whitaker Other Interventions: Discharge Summary Assessment (RN) Last Done: 07/28/19 15:09 DC Date/Time DO NOT enter until pt leaves facility: 07/28/19 15:39
--- NOTE | 2019-07-30 08:10 | Coding Query ---
CONGESTIVE HEART FAILURE To Promote full compliance with coding requirements relating to patient care, physician participation is requested in all cases of inside sales associate uncertainty. Please assist us with the following questions. A diagnosis of Congestive Heart Failure is documented in the patient's medical record. Progress notes document diastolic HEpEF. One dose Lasix given. Please check below the phrase that indicates the diagnosis you were treating. Thank you. Chai Colón, RA[employer]RO[employer]ARD WORK[employer] SYSTOLIC HEART FAILURE ( ) Acute ( ) Chronic ( ) Acute on Chronic ( ) Rheumatic ( ) Unknown DIASTOLIC HEART FAILURE ( ) Acute ( ) Chronic (x ) Acute on Chronic ( ) Rheumatic ( ) Unknown COMBINED SYSTOLIC AND DIASTOLIC HEART FAILURE ( ) Acute ( ) Chronic ( ) Acute on Chronic ( ) Rheumatic ( ) Unknown Was the CHF Present On Admission? Please check the appropriate box: ( x) Present on Admission ( ) Not Present On Admission ( ) Clinically undetermined Thank you Chai MULLINS
== END 2019-07-28 15:39 | disposition home or self-care (01) | DRG 177 ==
LOC: ED 16:33 → 4W 18:44 → SUATTDRO 18:44 → 4W 19:32

== ENCOUNTER 2019-12-22 18:11 | Inpatient (IN) ==
[2019-12-22 21:37] LABS: Hematocrit (blood only) 29.2 % (42-52); Mean Corpuscular Hemoglobin 33.6 pg (25-34); Mean Platelet Volume 8.4 fL (7.4-10.4); Platelet Count 230 K/uL (130-400); RDW Coefficient of Variation 15.9 % (11.5-14.5); RDW Standard Deviation 57.3 fL (36.4-46.3); Red Blood Count 2.98 M/uL (4.7-6.1); White Blood Count 6.35 K/uL (4.8-10.8)
[2019-12-22 21:38] LABS: Mean Corpuscular Hgb Conc 34.2 g/dL (32-36)
[2019-12-22 21:42] LABS: INR 1.5 (0.9-1.1); Partial Thromboplastin Ratio 1.5; Partial Thromboplastin Time 42.4 Seconds (21.0-31.0); Prothrombin Time 15.9 Seconds (9.0-12.0)
[2019-12-22 21:48] LABS: Alanine Aminotransferase 13 U/L (12-78); Albumin Level 2.3 gm/dl (3.4-5.0); Aspartate Aminotransferase 18 U/L (15-37); BUN Creatinine Ratio 21.2 (10-20); Blood Urea Nitrogen 42 mg/dl (7-18); Calcium 7.5 mg/dl (8.5-10.1); Carbon Dioxide 20 mmol/L (21-32); Chloride 102 mmol/L (98-107); Est GFR (African American) 37.5; Est GFR (Non-African American) 32.4; Glucose 94 mg/dl (70-99); Magnesium 1.7 mg/dl (1.8-2.4); Potassium 4.3 mmol/L (3.5-5.1); Sodium 130 mmol/L (136-145)
[2019-12-22 21:53] LABS: Albumin Globulin Ratio 0.3 (0.9-2); Alkaline Phosphatase 47 U/L (45-117); Globulin 7.4 gm/dl (2.5-4.0); Total Protein 9.7 gm/dl (6.4-8.2); Troponin I < 0.015 ng/ml (0-0.045)
[2019-12-22] MEDS ORDERED: XOPENEX/ATROVENT 1.25mg/0.5MG NEB COMBO NEB STA (22:00)
[2019-12-22] MEDS ORDERED: LEVALBUTEROL 1.25MG/0.5ML NEB INH STA (22:03)
[2019-12-22] MEDS ORDERED: IPRATROPIUM BROMIDE NEB SOLN 0.02% 2.5 ML VIAL INH STA (22:03)
[2019-12-22 22:09] LABS: Dohle Bodies 1+; Eosinophils # (auto) 0.01 K/uL (0-0.5); Eosinophils % (auto) 0.2 %; Immature Granulocytes # (auto) 0.07 K/uL (0.00-0.02); Immature Granulocytes % (auto) 1.1 %; Lymphocytes # (auto) 0.14 K/uL (1.2-3.4); Lymphocytes % (auto) 2.2 %; Monocytes # (auto) 0.28 K/uL (0.11-0.59); Monocytes % (auto) 4.4 %; Neutrophils # (auto) 5.85 K/uL (1.4-6.5); Neutrophils % (auto) 92.1 %; Toxic Vacuolation 1+
[2019-12-22] MEDS ORDERED: methylPREDNISolone 40 MG in SYRINGE 0 ML IV STA (22:30)
[2019-12-22] MEDS ORDERED: ACETAMINOPHEN 325 MG TAB PO PRN (22:31)
[2019-12-22] MEDS ORDERED: PIPERACILL/TAZOBAC CONSULT ACTIVE PRN (22:34)
[2019-12-22] MEDS ORDERED: ALBUMIN 25% 50 ML IV ONE (22:34)
[2019-12-22 22:36] LABS: Allen Test Pos (Pos); Base Excess ABG -7.4 mEq/L (-9-1.8); HCO3 ABG 16 mmol/L (19-24); Oxygen Saturation ABG 95.6 % (90-95); PCO2 ABG 28 mmHg (35-46); PO2 ABG 81 mmHg (80-95); pH ABG 7.39 (7.35-7.45)
[2019-12-22] MEDS ORDERED: PIPERACILLIN/TAZOBACTAM 4.5 GM in DEXTROSE 5% 100 ML IV STA (22:38)
[2019-12-22] MEDS ORDERED: MAGNESIUM SULFATE / D5W 1 GM/100 ML BAG IV ONE ×2 (22:40→23:21)
[2019-12-22 23:00] LABS: BUN Creatinine Ratio 23.6 (10-20); Calcium 7.2 mg/dl (8.5-10.1); Creatinine Clr Calc Pharmacy 34.2 ml/min; Est GFR (African American) 42.3; Est GFR (Non-African American) 36.5; Potassium 4.2 mmol/L (3.5-5.1)
--- NOTE | 2019-12-22 23:20 | History & Physical Report ---
Date of Service December 22, 2019 Assessment & Plan (1) Acute hypoxemic respiratory failure: Secondary to COPD exacerbation secondary to recurrent pneumonia/complicated pneumonia with pleural effusion ? Recurrent aspiration versus malignancy related Patient not septic. Gram-negative rods and gram-positive cocci on sputum Gram stain obtained from [facility] in the ER. chronic diastolic heart failure (EF 60-65%, TTE 2019 ) equivocal volume status given weight loss and abnormal BNP in the setting of abnormal kidney function hypertension, stable non-Hodgkin's lymphoma, possible initiation of therapy pending further discussion with [facility] oncologist as per patient chronic hyponatremia likely secondary to malignancy chronic anemia, hemoglobin at baseline Medical telemetry Supplemental O2 Steroid, nebs RTC for severe exacerbation Follow cultures obtained from [facility] Check MRSA nasal swab Zosyn, Doxycycline for now Pulmonary consult in a.m. RE respiratory failure, abnormal CT chest, pleural effusion N.p.o. until patient seen by pulmonology in anticipation of any procedure Baseline UA, IV albumin given equivocal volume status Daily renal function Renal ultrasound if without improvement in kidney function. DVT prophylaxis. Heparin subcu Full code Text document was generated using [employer] voice recognition software. It may contain grammatical or spelling errors. Kindly contact undersigned for clarification of any documentation item in question. Admission and Anticipated Discharge Date Admission Date: December 22, 2019 History of Present Illness Chief Complaint: Shortness of breath Primary Care Provider: Dr. Charli Flowers History obtained from patient and records. Medical history significant for chronic diastolic heart failure (EF 60-65%, TTE 2019 ) hypertension, asthma/COPD/bronchiectasis as per records, non-Hodgkin's lymphoma, chronic hyponatremia, chronic anemia (baseline hemoglobin 9-10). Last confinement July 2019 for recurrent aspiration pneumonia post bronchoscopy . Patient had noted to have moderate pharyngeal dysphagia on outpatient VFS 2 months ago. No sandhya aspiration noted. Regular diet with thin liquids recommended with aspiration precautions. Patient seen on follow[place] [facility] [place] about 2 weeks ago for abnormal CAT scan findings. Impression was organizing pneumonia versus potential lymphoma involvement of the lower lobe. Pulmonary toilet recommended. Continued radiographic surveillance unless biopsy of right lower lobe required for therapy and management of beta cell lymphoma as per documentation. Plan to be coordinated with patient's medical oncologist. Patient returned home last night from dining out at a restaurant when he experienced pleuritic right-sided chest/back discomfort with worsening shortness of breath, usual cough symptoms productive of guillermo sputum as per patient. No known sick contacts. Patient denies recent aspiration event. Patient denies weight gain or leg swelling. He actually is losing weight. Worsening symptoms overnight. Patient brought to [facility] emergency room for evaluation. O2 sats noted to be 92 on 3 L., Patient tachycardic. CT chest initial read showed moderate right pleural effusion right lung with compressive atelectasis/consolidation. Bilateral perihilar/peribronchial thickening and left lower lobe tree-in-bud airspace disease. Mild consolidation left lower lobe and lingula. Pneumonitis versus superimposed CHF. Numerous slightly prominent mediastinal, bilateral axillary, supraclavicular lymph nodes. CAD, metabolic ossification. Distended gallbladder. Blood cultures obtained. Sputum cultures initial Gram stain showed moderate WBC, less than 10 epithelial cells, moderate gram-negative rods, few gram-positive cocci COVID-19 swab was negative. Lab work as follows : Hemoglobin, 9.7, hematocrit 28.6, WBC 10.3, platelets 283 Serum sodium 129, potassium 4.4, chloride 99, CO2 21, BUN 39, creatinine 2.3, glucose 92 Troponin less than 0.02 BNP 1080 (normal value 0-100) Patient given Lasix, Solu-Medrol, ceftriaxone, and azithromycin at the ER. Patient transferred to [facility] for specialist evaluation. 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 Allergies Allergy/AdvReac Type Severity Reaction Status Date / Time lisinopril AdvReac Mild cough Verified 12/23/19 01:35 Home Medications Home Medications Medication Instructions Recorded Confirmed Type Breo Ellipta 1 inh INHALATION BID 06/26/19 12/22/19 History ProAir RespiClick 1 inh INHALATION Q4H PRN 06/26/19 12/22/19 History amlodipine 5 mg PO BID 06/26/19 12/22/19 History ipratropium 0.5 mg-albuterol 3 mg 3 ml INH Q6H PRN #90 ml 07/08/19 12/22/19 Rx (2.5 mg base)/3 mL nebulization soln hydroxyzine HCl 10 mg tablet 10 mg PO QID PRN #30 tab 08/29/19 12/22/19 Rx benzonatate 100 mg capsule 100 mg PO BID PRN #90 cap 12/11/19 12/22/19 Rx Past Med/Surg History Medical History (Updated 12/23/19 @ 01:28 by Camilo Nolen MD) Aspiration of food B-cell lymphoma Chronic airway disease Dysphagia HTN (hypertension) Surgical History No pertinent past surgical history Family History Mother Emphysema of lung Father Heart disease Social History Smoking Status: Never smoker Hx Alcohol Use: Yes Alcohol type: beer, wine and hard liquor Hx Substance Use: No Preferred Language: Nicaraguan Communication Ability: Effective Clinical Appeals Specialist Required: No Beliefs That Will Affect Care: None Current Living Situation: Spouse Other Information That Helps Us Care for You: No Feels Safe at Home: Yes Safety Concerns: Feels Safe At This Time Review of Systems Review of Systems: As per HPI, all 10 systems reviewed, all other ROS negative Physical Exam Physical Exam: GENERAL: Slightly uncomfortable, heart slightly hard of hearing, minimal respiratory distress SKIN: Pallor , warm HEENT: Pale palpebral conjunctivae, no ptosis, dry buccal mucosa, nasal cannula in place NECK : Supple, no tenderness CHEST : Decreased breath sounds, expiratory wheezes , no tenderness HEART : Tachycardic , no obvious murmurs ABDOMEN: Some distention, nontender EXTREMITIES : No LE swelling, no LE tenderness, no other conspicuous deformities noted NEUROLOGIC : Coherent, chronic facial asymmetry, mild hearing impairment, no other gross focality Results & Data Results & Data ([facility]) Vital Signs (Past 12 Hours) Vital Signs Temp Pulse Pulse Resp BP Pulse Ox 12/22/19 22:34 104 H 22 97 12/22/19 22:09 106 H 12/22/19 21:52 36.4 C L 108 H 28 H 135/59 L 95 12/22/19 21:09 36.4 C L 28 H 135/59 L 96 Laboratory Results Laboratory Results WBC 6.35 K/uL (4.8-10.8) 12/22/19 21:19 RBC 2.98 M/uL (4.7-6.1) L 12/22/19 21:19 Hgb 10.0 g/dL (14.0-18.0) L 12/22/19 21:19 Hct 29.2 % (42-52) L 12/22/19 21:19 MCV 98.0 fL (80-100) 12/22/19 21:19 MCH 33.6 pg (25-34) 12/22/19 21:19 MCHC 34.2 g/dL (32-36) 12/22/19 21:19 RDW Std Deviation 57.3 fL (36.4-46.3) H 12/22/19 21:19 RDW Coeff of Gucci 15.9 % (11.5-14.5) H 12/22/19 21:19 Plt Count 230 K/uL (130-400) 12/22/19 21:19 MPV 8.4 fL (7.4-10.4) 12/22/19 21:19 Immature Gran % (Auto) 1.1 % 12/22/19 21:19 Neut % (Auto) 92.1 % 12/22/19 21:19 Lymph % (Auto) 2.2 % 12/22/19 21:19 [place] % (Auto) 4.4 % 12/22/19 21:19 Eos % (Auto) 0.2 % 12/22/19 21:19 Baso % (Auto) 0.0 % 12/22/19 21:19 Neut # (Auto) 5.85 K/uL (1.4-6.5) 12/22/19 21:19 Lymph # (Auto) 0.14 K/uL (1.2-3.4) L 12/22/19 21:19 [place] # (Auto) 0.28 K/uL (0.11-0.59) 12/22/19 21:19 Eos # (Auto) 0.01 K/uL (0-0.5) 12/22/19 21:19 Baso # (Auto) 0.00 K/uL (0-0.2) 12/22/19 21:19 Immature Gran # (Auto) 0.07 K/uL (0.00-0.02) H 12/22/19 21:19 Toxic Vacuolation 1+ 12/22/19 21:19 Dohle Bodies 1+ 12/22/19 21:19 PT 15.9 Seconds (9.0-12.0) H 12/22/19 21:19 INR 1.5 (0.9-1.1) H 12/22/19 21:19 APTT 42.4 Seconds (21.0-31.0) H 12/22/19 21:19 PTT Ratio 1.5 12/22/19 21:19 ABG pH 7.39 (7.35-7.45) 12/22/19 22:23 ABG pCO2 28 mmHg (35-46) L 12/22/19 22:23 ABG pO2 81 mmHg (80-95) 12/22/19 22:23 ABG HCO3 16 mmol/L (19-24) L 12/22/19 22:23 ABG O2 Saturation 95.6 % (90-95) H 12/22/19 22:23 ABG Base Excess -7.4 mEq/L (-9-1.8) 12/22/19 22:23 Enzo Test Pos (Pos) 12/22/19 22:23 Barometric Pressure 729.5 mm/Hg 12/22/19 22:23 Oxygen Given 4L 12/22/19 22:23 Sodium 132 mmol/L (136-145) L 12/22/19 22:23 Potassium 4.2 mmol/L (3.5-5.1) 12/22/19 22:23 Chloride 106 mmol/L (98-107) 12/22/19 22:23 Carbon Dioxide 16 mmol/L (21-32) L 12/22/19 22:23 Anion Gap 10.0 (3-11) 12/22/19 22:23 BUN 43 mg/dl (7-18) H 12/22/19 22:23 Creatinine 1.80 mg/dl (0.6-1.4) H 12/22/19 22:23 Est Cr Clr Drug Dosing 34.2 ml/min 12/22/19 22:23 Est GFR ( Amer) 42.3 12/22/19 22:23 Est GFR (Non-Af Amer) 36.5 12/22/19 22:23 BUN/Creatinine Ratio 23.6 (10-20) H 12/22/19 22:23 Glucose 99 mg/dl (70-99) 12/22/19 22:23 Calcium 7.2 mg/dl (8.5-10.1) L 12/22/19 22:23 Magnesium 1.7 mg/dl (1.8-2.4) L 12/22/19 21:19 Total Bilirubin 1.0 mg/dl (0.2-1) 12/22/19 21:19 AST 18 U/L (15-37) 12/22/19 21:19 ALT 13 U/L (12-78) 12/22/19 21:19 Alkaline Phosphatase 47 U/L (45-117) 12/22/19 21:19 Troponin I < 0.015 ng/ml (0-0.045) 12/22/19 21:19 Total Protein 9.7 gm/dl (6.4-8.2) H 12/22/19 21:19 Albumin 2.3 gm/dl (3.4-5.0) L 12/22/19 21:19 Globulin 7.4 gm/dl (2.5-4.0) H 12/22/19 21:19 Albumin/Globulin Ratio 0.3 (0.9-2) L 12/22/19 21:19 Diagnostic Findings Chest x-ray ([facility]) per my interpretation: Right pleural effusion EKG as per my interpretation ([facility] ER) : Rate 105, sinus tachycardia, normal axis, no ischemia Code Status & VTE Plan VTE Prophylaxis Plan VTE Prophylaxis will be ordered: Yes
[2019-12-22 23:37] LABS: Albumin Level 2.1 gm/dl (3.4-5.0); Bilirubin Direct 0.4 mg/dl (0-0.2); Total Protein 9.2 gm/dl (6.4-8.2)
[2019-12-22] MEDS ORDERED: PROMETHAZINE HCL 12.5 MG in SODIUM CHLORIDE 0.9% 50 ML IV PRN (23:45)
[2019-12-22] MEDS ORDERED: HYDROmorphone INJ 0.5 MG/0.5 ML SYR IV PRN (23:45)
[2019-12-23] MEDS ORDERED: XOPENEX/ATROVENT 1.25mg/0.5MG NEB COMBO NEB SCH (01:00)
[2019-12-23] MEDS ORDERED: DOXYCYCLINE HYCLATE 100 MG in DEXTROSE 5% 100 ML IV STA (01:18)
[2019-12-23] MEDS: ALBUMIN 25% 50 ML IV SCH ×4 (01:26→17:52)
[2019-12-23 02:45] LABS: Appearance Urine Cloudy (Clear); Bilirubin Urine Negative (Negative); Blood Urine Negative (Negative); Color Urine Yellow; Glucose Urine UA Negative (Negative); Ketones Urine Negative (Negative); Leukocyte Esterase Urine Negative (Negative); Nitrite Urine Negative (Negative); Protein Urine Trace (Negative); RBC Urine Automated 0-4 /hpf (0-4); Urobilinogen Urine Negative (Negative)
[2019-12-23 03:22] LABS: Bacteria Urine Automated 1+ (Negative); Mucus Urine Present (None Prsent)
[2019-12-23] MEDS: PIPERACILLIN/TAZOBACTAM 3.375 GM in DEXTROSE 5% 100 ML IV SCH ×3 (05:03→20:07)
[2019-12-23] MEDS: LIDOCAINE 5% 1 PATCH TD SCH (05:03)
[2019-12-23] MEDS: HEPARIN SOD 5,000 UNIT/0.5 ML VIAL SQ SCH ×2 (05:11→13:14)
[2019-12-23] MEDS: LEVALBUTEROL 1.25MG/0.5ML NEB INH SCH ×3 (07:01→19:01)
[2019-12-23] MEDS: IPRATROPIUM BROMIDE NEB SOLN 0.02% 2.5 ML VIAL INH SCH ×3 (07:02→19:01)
[2019-12-23 07:04] LABS: Hemoglobin 8.9 g/dL (14.0-18.0); Mean Corpuscular Hemoglobin 33.3 pg (25-34); Mean Corpuscular Hgb Conc 34.2 g/dL (32-36); Mean Corpuscular Volume 97.4 fL (80-100); Mean Platelet Volume 8.7 fL (7.4-10.4); Platelet Count 201 K/uL (130-400); RDW Coefficient of Variation 15.7 % (11.5-14.5); RDW Standard Deviation 55.4 fL (36.4-46.3); Red Blood Count 2.67 M/uL (4.7-6.1); White Blood Count 4.96 K/uL (4.8-10.8)
[2019-12-23 07:35] LABS: Calcium 7.8 mg/dl (8.5-10.1); Creatinine Clr Calc Pharmacy 37.1 ml/min; Est GFR (African American) 46.7; Est GFR (Non-African American) 40.3; Magnesium 2.6 mg/dl (1.8-2.4); Potassium 4.1 mmol/L (3.5-5.1)
--- NOTE | 2019-12-23 07:35 | XRay Report ---
SINGLE VIEW CHEST CLINICAL HISTORY: Dyspnea. FINDINGS: An AP, portable, upright chest radiograph is compared to study dated 09/10/2019 and correlate d with chest CT dated 10/09/2019. The examination is degraded by portable technique and apical lordotic positioning. The heart is enlarged noting atherosclerotic calcification of the thoracic aorta. There is pulmonary vascular congestion. There is a moderate right pleural effusion with associated right b asilar consolidation. Atelectasis is seen at the left lung base. No pneumothorax is identified. The s keletal structures are osteopenic. The bony thorax is grossly intact. Advanced degenerative change is seen in the shoulders. IMPRESSION: 1. Cardiomegaly with pulmonary vascular congestion. 2. Moderate right pleural effusion with associated right basilar consolidation. This has increased fr om the 10/09/2019 CT scan. ACT 112: Negative or not required by law. Electronically signed by: Irineo Vargas M.D. 12/23/2019 7:34 AM
[2019-12-23 08:00] LABS: Immature Granulocytes # (auto) 0.03 K/uL (0.00-0.02); Immature Granulocytes % (auto) 0.6 %; Lymphocytes # (auto) 0.24 K/uL (1.2-3.4); Lymphocytes % (auto) 4.8 %; Monocytes # (auto) 0.39 K/uL (0.11-0.59); Monocytes % (auto) 7.9 %; Neutrophils % (auto) 86.7 %
[2019-12-23] MEDS: FLUTICASONE/VILANTEROL 200/25MCG 14 PUFFS/INHALER INH SCH ×2 (08:34→20:08)
[2019-12-23] MEDS: AMLODIPINE BESYLATE 5 MG TAB PO SCH (08:34)
[2019-12-23] MEDS: predniSONE 20 MG TAB PO SCH (08:35)
[2019-12-23] MEDS ORDERED: LIDOCAINE 5% 1 PATCH TD SCH (09:00)
[2019-12-23] MEDS ORDERED: methylPREDNISolone 40 MG in SYRINGE 0 ML IV SCH (09:00)
--- NOTE | 2019-12-23 09:45 | Pulmonary Consultation ---
Date of Consultation December 23, 2019 Assessment & Plan (1) Acute hypoxemic respiratory failure: This 74-year-old male with a history of non-Hodgkin's lymphoma followed by Dr. Mora. Patient had sudden onset of shortness of breath and reported to [facility] where imaging was completed which revealed multifocal pneumonia and a right pleural effusion. They attempted transfer to [place] but patient requested transfer to [facility] as he receives his care here. Patient was hypoxic at 80% in [place] and has been saturating well here with supplemental oxygen. Patient uses no supplemental oxygen at home. Agree with broad-spectrum antibiotics for possible organizing pneumonia Would trend procalcitonin Continue to titrate supplemental oxygen off as tolerated No indication for bronchoscopy at this time Continue treat for multifocal pneumonia (2) Pleural effusion, right: Patient has a right pleural effusion which was noted and may on CT scan Suspect that this is related to his lymphoma On chest x-ray the effusion appears to be larger today Will do bedside ultrasound later today and evaluate for bedside thoracentesis INR is 1.5 Platelet count is greater than 200 Patient is not on any antiplatelet or anticoagulant drugs. (3) Multilobar lung infiltrate: Patient does have evidence of bronchiectasis and underwent bronchoscopy in July of this year No bacterial growth at that time Bronchial wash of the left lower lobe did grow some Yue albicans Doubt that these infiltrates are fungal in nature Continue treat for bacterial pneumonia Continue to follow supportively (4) B-cell lymphoma: Was scheduled to start chemotherapy of unknown agent with Dr. Loredo tomorrow per patient report At this point will focus on treatment of pneumonia. Patient requested Dr. Mora be notified that he is inpatient. I will send a message to him Further management per hematology / oncology (5) HTN (hypertension): Continue usual home meds (6) Aspiration of food: Video swallow study completed 10/09/2019 Patient did have moderately compromised hypopharyngeal motility at that time he also had persistent vallecular pooling. Continue aspiration precautions Thank you very much for including us in the care of this patient. We will continue to follow along with you. Please refer to Dr. Gaines's addendum for further recommendations. Supervising Physician Co-Signing Physician Notes Patient seen and examined with Irineo duffy PA-C. I agree with his assessment and plan aside for any additions/exceptions noted: I performed an ultrasound of his right hemithorax and was able to see a large free-flowing effusion. We performed initially thoracentesis and then converted to a chest tube as there was very milky appearing fluid that was concerning for possible chylothorax versus empyema. He is certainly at risk for chylothorax given his lymphoma and mediastinal/hilar lymphadenopathy. We will send for pleural triglyceride level along with chemistries, cultures and cytology. Thank you for the consult. Will follow along with you. History of Present Illness Attending Physician: Lamonte Coffey MD History of Present Illness Attending: Dr. Gaines This is a 74-year-old male with a history of bronchiectasis, asthma, B-cell lymphoma, hypertension, normocytic normochromic anemia, and dysphasia. Mr. Hansen presented to the hospital yesterday with shortness of breath which was sudden onset. He had gone out to dinner and then found himself to be very short of breath. He states that he had pain that went along the right inferior rib around to his back and was pleuritic in nature. He had cough with grayish sputum. He denies any hemoptysis. He had no previous productive sputum. He denies any fever or chills. When asked about night sweats he stated his been hot and he does not have air conditioning his home so of course he sweats. He describes no new symptoms related to non-Hodgkin's lymphoma. He has had no nausea or vomiting. He has no history of tobacco abuse. He has no history of alcohol abuse. He does drink socially occasionally He lives with his at home. He does most of the cooking. He continues to drive. He denies any exotic pets or birds. He has no recent sick contacts. He has no COVID related symptoms that are unexplained related to the pneumonia. The patient does have a right pleural effusion which was identified on CT scan in September. It does appear to be larger on chest x-ray. He denies any history of thoracentesis or chest tube drainage. The patient did have a bronchoscopy with Dr. Jackson in July of this year which showed no significant findings. There is no bacterial growth on the cultures. The bronchoscopy was terminated early secondary to cough. The patient does follow with Dr. Jackson in the outpatient clinic and was most recently seen 12/11/2019. The patient also underwent video swallow study 06/24/2019 which revealed a few episodes of aspiration with thin liquid barium only. The patient previously followed with [facility] pulmonary group as an outpatient and was seen by CAITLIN Johnson. He served in the [employer] from 1965 to 1969 in [place] and then retired from the [employer]. He then retired from the [employer] and has been retired for several years. He has occupational exposure to welding gas, coal dust, fumes, and other toxins in the [employer] yard. 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 Allergies Allergy/AdvReac Type Severity Reaction Status Date / Time lisinopril AdvReac Mild cough Verified 12/23/19 01:35 Home Medications Home Medications Medication Instructions Recorded Confirmed Type Breo Ellipta 1 inh INHALATION BID 06/26/19 12/22/19 History ProAir RespiClick 1 inh INHALATION Q4H PRN 06/26/19 12/22/19 History amlodipine 5 mg PO BID 06/26/19 12/22/19 History ipratropium 0.5 mg-albuterol 3 mg 3 ml INH Q6H PRN #90 ml 07/08/19 12/22/19 Rx (2.5 mg base)/3 mL nebulization soln hydroxyzine HCl 10 mg tablet 10 mg PO QID PRN #30 tab 08/29/19 12/22/19 Rx benzonatate 100 mg capsule 100 mg PO BID PRN #90 cap 12/11/19 12/22/19 Rx Patient History Medical History Aspiration of food B-cell lymphoma Chronic airway disease Dysphagia HTN (hypertension) Surgical History No pertinent past surgical history Family History Mother Emphysema of lung Father Heart disease Social History Smoking Status: Never smoker Hx Alcohol Use: Yes Alcohol type: beer, wine and hard liquor Hx Substance Use: No Preferred Language: Mexican Communication Ability: Effective Manager Of Pmo Required: No Beliefs That Will Affect Care: None Current Living Situation: Spouse Other Information That Helps Us Care for You: No Feels Safe at Home: Yes Safety Concerns: Feels Safe At This Time Review of Systems Review of Systems: All systems reviewed & are unremarkable except as noted in HPI & below Physical Exam Physical Exam: GENERAL : No acute distress EYES: No icterus. 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 Nasal cannula in place MOUTH: No lesions or candidiasis NECK: Supple LUNGS: Bibasilar rales. Decreased breath sounds on the right base. Some rhonchi at the bilateral upper velarde. HEART: Regular, rate controlled ABDOMEN: Soft, NT, ND, BS Present EXTREMITIES: Trace bilateral LE edema, pedal pulses intact and equal bilaterally NEURO: A&OX3. Patient is blind in the left eye. Results & Data Results & Data ([facility]) Vital Signs (Past 12 Hours) Vital Signs Temp Pulse Pulse Pulse Resp BP Pulse Ox 12/23/19 07:39 96 H 12/23/19 07:12 36.7 C 98 H 20 119/70 95 12/23/19 07:04 91 H 18 97 12/23/19 04:25 36.4 C L 101 H 22 113/64 94 12/23/19 01:13 106 H 12/22/19 23:35 36.5 C 103 H 18 107/68 98 12/22/19 22:34 104 H 22 97 12/22/19 22:09 106 H 12/22/19 21:52 36.4 C L 108 H 28 H 135/59 L 95 Laboratory Results 12/23/19 06:09 12/23/19 06:09 INR 1.5 (0.9-1.1) H 12/22/19 21:19 Diagnostic Findings SINGLE VIEW CHEST CLINICAL HISTORY: Dyspnea. FINDINGS: An AP, portable, upright chest radiograph is compared to study dated 09/10/2019 and correlated with chest CT dated 10/09/2019. The examination is degraded by portable technique and apical lordotic positioning. The heart is enlarged noting atherosclerotic calcification of the thoracic aorta. There is pulmonary vascular congestion. There is a moderate right pleural effusion with associated right basilar consolidation. Atelectasis is seen at the left lung base. No pneumothorax is identified. The skeletal structures are osteopenic. The bony thorax is grossly intact. Advanced degenerative change is seen in the shoulders. IMPRESSION: 1. Cardiomegaly with pulmonary vascular congestion. 2. Moderate right pleural effusion with associated right basilar consolidation. This has increased from the 10/09/2019 CT scan. Electronically signed by: Irineo Vargas M.D. 12/23/2019 7:34 AM PG Care Time/CCT Total # of Minutes Spent Total Time Spent with Patient: Total time spent is greater than 50% in coordination of care (as documented) at patient's floor/unit and/or counseling patient: 60 minutes C[place] [address] Inpt Consult Level 5 Patient Type Established Diagnoses Acute hypoxemic respiratory failure J96.01 Pleural effusion, right J90 Multilobar lung infiltrate R91.8 B-cell lymphoma C85.10 HTN (hypertension) I10 Aspiration of food T17.920A
[2019-12-23] MEDS: TRAMADOL HCL 50 MG TABLET PO PRN ×2 (11:49→16:50)
--- NOTE | 2019-12-23 11:58 | Procedure Note ---
Procedure Note Date of Service December 23, 2019 Note PIGTAIL CATHETER PLACEMENT NOTE: Procedure: Pigtail Catheter Chest Tube Placement Indication: Right-sided pleural effusion Anesthesia: 10 mL of lidocaine 1% Written consent was obtained and placed on the chart. Timeout was done prior to the procedure. Prior to procedure, chest x-ray films were reviewed by myself and demonstrated a large free-flowing right-sided pleural effusion. A time-out was completed verifying correct patient, procedure, site, positioning, and implant(s) or special equipment if applicable. Utilizing bedside ultrasound, chest wall was evaluated for location for optimal chest tube placement. Location between the sixth and seventh ribs were marked on the skin using gentle pressure. The right sided chest wall was prepped with chlorhexidine and draped in the typical sterile fashion. 10 mL of 1% Lidocaine without epinephrine was used to anesthetize the skin down to the dorsal surface of the sixth rib. Milky fluid return confirmed entry into the pleural space. Lidocaine was injected into the pleural space for increased anesthetization. Introducer needle on syringe was inserted in perpendicular fashion taking care to ride just above the dorsal surface of the sixth rib. Entry into the pleural space was heralded by milky fluid return into the syringe while under gentle aspiration. Guide wire was advanced into the pleural space without resistance and the introducer needle was subsequently removed. Scalpel was used to make small incision of the superficial tissue, parallel to the direction of the rib anatomy. Dilator was advanced uneventfully over the guide wire into the pleural space. 14 Spanish Pigtail Catheter was inserted into the pleural space. Inner introducer and guide wire were removed. Drain was immediately connected to pre-prepared WYATT pleur-evac system. Pigtail was sutured securely in place and sterile dressing was applied. Chest tube was placed to -20 cmH2O suction. Patient tolerated procedure well. Blood Loss: Minimal Complications: None Post procedure Chest X-ray was ordered and reviewed by myself which demonstrated adequate placement. Pleural fluid concerning for empyema versus chylothorax. Appropriate studies sent. Continue chest tube to -20 cm H2O suction. Coding CPT Codes Pulmonary/Thoracic - Pulmonary and Thoracic: 90799 US, Chest, real time with imaging documentation ([id number]) Pulmonary/Thoracic - Pulmonary and Thoracic: 71258 Tube thoracostomy ([id number]) [facility] Procedure Codes (Charges) Pulmonary/Thoracic Procedure 1: Pulmonary and Thoracic: 18272 US, Chest, real time with imaging documentation Procedure 2: Pulmonary and Thoracic: 53483 Tube thoracostomy
[2019-12-23 12:00] LABS: Glucose Pleural Fluid < 1 mg/dl; Total Protein Pleural Fluid 6.7 g/dl
[2019-12-23 12:12] LABS: LDH Pleural Fluid 2071 U/L
--- NOTE | 2019-12-23 12:27 | XRay Report ---
XR chest inspiration/expiratio CLINICAL HISTORY: Right pigtail catheter placement COMPARISON STUDY: Chest radiograph December 22, 2019. PET/CT October 15, 2019 FINDINGS: Right basilar pleural catheter has been placed. Right pleural effusion has decreased in siz e. Right basilar airspace opacity is noted however right lower lung aeration has improved. Mild inter stitial thickening is noted. A small right pneumothorax is noted with superior pleural separation of 1.2 cm. Cardiomegaly is again noted. There are old left rib fractures. Right hilar enlargement is not ed. IMPRESSION: 1. Interval placement of a right basilar pleural catheter with significant decrease in size of the ri ght pleural effusion with improved right lower lung aeration. Small right apical pneumothorax. 2. Right hilar enlargement which could be due to lymphadenopathy or pulmonary vessels. ACT 112: Negative or not required by law. Electronically signed by: Bam Goodman M.D. 12/23/2019 12:25 PM
--- NOTE | 2019-12-23 12:51 | Electrocardiogram Report ---
Test Reason : Blood Pressure : / mmHG Vent. Rate : 101 BPM Atrial Rate : 101 BPM P-R Int : 168 ms QRS Dur : 078 ms QT Int : 344 ms P-R-T Axes : 061 063 047 degrees QTc Int : 446 ms Poor data quality, interpretation may be adversely affected Sinus tachycardia Possible Left atrial enlargement Borderline ECG When compared with ECG of 24-JUL-2019 16:56, No significant change was found Confirmed by Delmar Delacruz ([id number]) on 12/23/2019 12:51:02 PM Referred By: Sukumar Garcia Confirmed By:Delmar Delacruz
[2019-12-23 13:15] LABS: Appearance Pleural Fluid CLOUDY; Color Pleural Fluid AMBER; Lymphocytes, Fluid 1 %; RBC Pleural Fluid (A) 18000 /uL; Source Pleural Fluid RIGHT LUNG; WBC Pleural Fluid (A) 145540 /uL
[2019-12-23 13:16] LABS: Eosinophils, Fluid 2 %; Mono,Macrophage,Mesothelial 5 %; Neutrophils, Fluid 92 %
--- NOTE | 2019-12-23 14:00 | Communication Note ---
Pleural fluid consistent with empyema. I am going to start the patient on the mist 2 protocol.
--- NOTE | 2019-12-23 15:08 | XRay Report ---
XR chest 1V portable CLINICAL HISTORY: follow up chest tube COMPARISON STUDY: Chest radiograph December 23, 2019 at 12:10 PM. FINDINGS: Right basilar pleural pigtail catheter remains in place. A small right pleural effusion wit h right basilar opacity is unchanged. Right hilar prominence is again noted. There is cardiomegaly. T he right pneumothorax shown on prior exam is no longer visualized. IMPRESSION: Right basilar pleural pigtail catheter place. Small right pleural effusion with right basilar opacity which is unchanged. No pneumothorax identified. Otherwise, unchanged appearance of the chest. ACT 112: Negative or not required by law. Electronically signed by: Bam Goodman M.D. 12/23/2019 3:06 PM
[2019-12-23 15:53] LABS: Immunoglobulin A 34.2 mg/dl (70-400); Immunoglobulin M 5.9 mg/dl (40-230)
[2019-12-23] MEDS: ALTEPLASE, RECOMBINANT 10 MG in SYRINGE 50 ML IPL SCH (16:20)
[2019-12-23] MEDS: DORNASE ALFA 5 ML in SYRINGE 25 ML IPL SCH (17:55)
[2019-12-23] MEDS: DOXYCYCLINE HYCLATE 100 MG CAP PO SCH (20:09)
--- NOTE | 2019-12-23 21:08 | Hospitalist Progress Note ---
Date of Service December 23, 2019 Assessment & Plan (1) Acute hypoxemic respiratory failure: Secondary to bilateral pneumonia, right-sided pleural effusion, COPD exacerbation Currently comfortable on 4 L of oxygen via nasal cannula (not on home O2) Gram-negative rods and gram-positive cocci on sputum Gram stain obtained from [facility] in the ER.--> Follow-up CT chest: Moderate right pleural effusion, right lung atelectasis versus also lesion, bilateral perihilar peribronchial thickening and left lower lobe tree-in-bud airspace disease Linear atelectasis/mild consolidation left lower lobe and lingula MIST 2 protocol started Continue Zosyn, doxycycline Follow-up cultures from [place] [facility] Appreciate pulmonary service recommendations Chronic diastolic heart failure (EF 60-65%, TTE 2019 ) Appears euvolemic Acute renal failure, likely secondary to underlying infection Baseline creatinine 1.1 Admitted with creatinine of 1.9, now 1.6 Monitor Hypertension, stable Non-Hodgkin's lymphoma, possible initiation of therapy pending further discussion with [facility] oncologist as per patient Oncologist Dr. Loredo to be notified by NOAH uDffy Chronic hyponatremia likely secondary to malignancy Na 132--> 128 monitor Chronic anemia, hemoglobin at baseline DVT prophylaxis. Heparin subcu--> held in light of chest tube placement 12/23/2019 Resume heparin tomorrow if okay with home service Full code Disposition Lives at home with family Anticipate discharge to home when medically stable Admission and Anticipated Discharge Date Admission Date: December 22, 2019 Subjective Follow-up for acute hypoxic respiratory failure, pneumonia, right-sided pleural effusion Status post chest tube placement Tolerated procedure well Seen sitting up in bedside chair, comfortable, watching TV, not in distress, very pleasant, oriented x3, not in distress States he feels somewhat improved compared to yesterday Denies active shortness of breath while on 4 L of oxygen via nasal cannula Denies chest pain, palpitations, dizziness, nausea vomiting No other symptoms Review of Systems Review of Systems: All systems reviewed & are unremarkable except as noted in HPI & below Physical Exam Physical Exam: General- oriented x 3, not in distress, speaks in sentences with no effort or accessory muscle use Head- atraumatic Eyes- PERRL, EOMI, anicteric ENT- oropharynx clear Neck- supple, no JVD, no adenopathy, no thyromegaly; carotids +2/2, no bruits appreciated Lungs-positive decreased breath sounds right base, positive mild crackles bilateral bases, no wheezing Heart- normal rate, regular rhythm; no murmur, no gallop, no rub appreciated Abdomen- normal bowel sounds, nondistended, soft, nontender, no masses or hepatosplenomegaly Extremities- no pretibial edema, no calf tenderness; peripheral pulses intact Neuro- alert, oriented x 3; CN 2-12 grossly intact; motor 5/5 bilaterally;sensation 100% on all extremities; no other gross focal neurologic deficits Skin- warm & dry Results & Data Results & Data ([facility]) Vital Signs (Past 12 Hours) Vital Signs Temp Pulse Pulse Resp BP Pulse Ox 12/23/19 19:04 101 H 18 99 12/23/19 18:58 37.0 C 100 H 18 139/74 99 12/23/19 17:04 105 H 12/23/19 13:27 97 H 18 96 Laboratory Results Laboratory Results - last 24 hr 12/22/19 12/22/19 12/22/19 21:19 21:19 21:19 WBC 6.35 RBC 2.98 L Hgb 10.0 L Hct 29.2 L MCV 98.0 MCH 33.6 MCHC 34.2 RDW Std Deviation 57.3 H RDW Coeff of Gucci 15.9 H Plt Count 230 MPV 8.4 Immature Gran % (Auto) 1.1 Neut % (Auto) 92.1 Lymph % (Auto) 2.2 [place] % (Auto) 4.4 Eos % (Auto) 0.2 Baso % (Auto) 0.0 Neut # (Auto) 5.85 Lymph # (Auto) 0.14 L [place] # (Auto) 0.28 Eos # (Auto) 0.01 Baso # (Auto) 0.00 Immature Gran # (Auto) 0.07 H Toxic Vacuolation 1+ Dohle Bodies 1+ PT 15.9 H INR 1.5 H APTT 42.4 H PTT Ratio 1.5 ABG pH ABG pCO2 ABG pO2 ABG HCO3 ABG O2 Saturation ABG Base Excess Enzo Test Barometric Pressure Oxygen Given Sodium 130 L Potassium 4.3 Chloride 102 Carbon Dioxide 20 L Anion Gap 9.0 BUN 42 H Creatinine 1.99 H Est Cr Clr Drug Dosing Not Reportable Est GFR ( Amer) 37.5 Est GFR (Non-Af Amer) 32.4 BUN/Creatinine Ratio 21.2 H Glucose 94 Osmolality Calcium 7.5 L Magnesium 1.7 L Total Bilirubin 1.0 Direct Bilirubin Cancelled AST 18 ALT 13 Alkaline Phosphatase 47 Lactate Dehydrogenase Troponin I < 0.015 Total Protein 9.7 H Albumin 2.3 L Globulin 7.4 H Albumin/Globulin Ratio 0.3 L TSH 2.240 Urine Color Urine Appearance Urine pH Ur Specific [place] Urine Protein Urine Glucose (UA) Urine Ketones Urine Blood Urine Nitrite Urine Bilirubin Urine Urobilinogen Ur Leukocyte Esterase Urine WBC (Auto) Urine RBC (Auto) U Hyaline Cast (Auto) U Epithel Cells (Auto) Urine Bacteria (Auto) Urine Mucus Urine Osmolality Ur Random Sodium Fluid Neutrophils % Fluid Lymphocytes % Fluid Eosinophils % Fluid [place] % Pleural Fluid Source Pleural Color Pleural Appearance Pleural pH Pleural WBC Pleural RBC Pleural Total Protein Pleural LDH Pleural Glucose Pleural Cholesterol Pleural Triglycerides Nasal Screen MRSA (PCR) IgG IgA IgM 12/22/19 12/22/19 12/22/19 22:23 22:23 Unknown WBC RBC Hgb Hct MCV MCH MCHC RDW Std Deviation RDW Coeff of Gucci Plt Count MPV Immature Gran % (Auto) Neut % (Auto) Lymph % (Auto) [place] % (Auto) Eos % (Auto) Baso % (Auto) Neut # (Auto) Lymph # (Auto) [place] # (Auto) Eos # (Auto) Baso # (Auto) Immature Gran # (Auto) Toxic Vacuolation Dohle Bodies PT INR APTT PTT Ratio ABG pH 7.39 ABG pCO2 28 L ABG pO2 81 ABG HCO3 16 L ABG O2 Saturation 95.6 H ABG Base Excess -7.4 Enzo Test Pos Barometric Pressure 729.5 Oxygen Given 4L Sodium 132 L Potassium 4.2 Chloride 106 Carbon Dioxide 16 L Anion Gap 10.0 BUN 43 H Creatinine 1.80 H Est Cr Clr Drug Dosing 34.2 Est GFR ( Amer) 42.3 Est GFR (Non-Af Amer) 36.5 BUN/Creatinine Ratio 23.6 H Glucose 99 Osmolality Calcium 7.2 L Magnesium Total Bilirubin 1.0 Direct Bilirubin 0.4 H AST 16 ALT 14 Alkaline Phosphatase 43 L Lactate Dehydrogenase Troponin I Total Protein 9.2 H Albumin 2.1 L Globulin Albumin/Globulin Ratio TSH Urine Color Urine Appearance Urine pH Ur Specific [place] Urine Protein Urine Glucose (UA) Urine Ketones Urine Blood Urine Nitrite Urine Bilirubin Urine Urobilinogen Ur Leukocyte Esterase Urine WBC (Auto) Urine RBC (Auto) U Hyaline Cast (Auto) U Epithel Cells (Auto) Urine Bacteria (Auto) Urine Mucus Urine Osmolality Ur Random Sodium Fluid Neutrophils % Fluid Lymphocytes % Fluid Eosinophils % Fluid [place] % Pleural Fluid Source Pleural Color Pleural Appearance Pleural pH Pleural WBC Pleural RBC Pleural Total Protein Pleural LDH Pleural Glucose Pleural Cholesterol Pleural Triglycerides Nasal Screen MRSA (PCR) Negative IgG IgA IgM 12/23/19 12/23/19 12/23/19 02:35 02:35 02:35 WBC RBC Hgb Hct MCV MCH MCHC RDW Std Deviation RDW Coeff of Gucci Plt Count MPV Immature Gran % (Auto) Neut % (Auto) Lymph % (Auto) [place] % (Auto) Eos % (Auto) Baso % (Auto) Neut # (Auto) Lymph # (Auto) [place] # (Auto) Eos # (Auto) Baso # (Auto) Immature Gran # (Auto) Toxic Vacuolation Dohle Bodies PT INR APTT PTT Ratio ABG pH ABG pCO2 ABG pO2 ABG HCO3 ABG O2 Saturation ABG Base Excess Enzo Test Barometric Pressure Oxygen Given Sodium Potassium Chloride Carbon Dioxide Anion Gap BUN Creatinine Est Cr Clr Drug Dosing Est GFR ( Amer) Est GFR (Non-Af Amer) BUN/Creatinine Ratio Glucose Osmolality Calcium Magnesium Total Bilirubin Direct Bilirubin AST ALT Alkaline Phosphatase Lactate Dehydrogenase Troponin I Total Protein Albumin Globulin Albumin/Globulin Ratio TSH Urine Color Yellow Urine Appearance Cloudy A Urine pH 5.0 Ur Specific [place] 1.020 Urine Protein Trace H Urine Glucose (UA) Negative Urine Ketones Negative Urine Blood Negative Urine Nitrite Negative Urine Bilirubin Negative Urine Urobilinogen Negative Ur Leukocyte Esterase Negative Urine WBC (Auto) 1-5 Urine RBC (Auto) 0-4 U Hyaline Cast (Auto) 5-10 H U Epithel Cells (Auto) 10-20 H Urine Bacteria (Auto) 1+ H Urine Mucus Present A Urine Osmolality 391 L Ur Random Sodium 14 Fluid Neutrophils % Fluid Lymphocytes % Fluid Eosinophils % Fluid [place] % Pleural Fluid Source Pleural Color Pleural Appearance Pleural pH Pleural WBC Pleural RBC Pleural Total Protein Pleural LDH Pleural Glucose Pleural Cholesterol Pleural Triglycerides Nasal Screen MRSA (PCR) IgG IgA IgM 12/23/19 12/23/19 12/23/19 06:09 06:09 06:09 WBC 4.96 RBC 2.67 L Hgb 8.9 L Hct 26.0 L MCV 97.4 MCH 33.3 MCHC 34.2 RDW Std Deviation 55.4 H RDW Coeff of Gucci 15.7 H Plt Count 201 MPV 8.7 Immature Gran % (Auto) 0.6 Neut % (Auto) 86.7 Lymph % (Auto) 4.8 [place] % (Auto) 7.9 Eos % (Auto) 0.0 Baso % (Auto) 0.0 Neut # (Auto) 4.30 Lymph # (Auto) 0.24 L [place] # (Auto) 0.39 Eos # (Auto) 0.00 Baso # (Auto) 0.00 Immature Gran # (Auto) 0.03 H Toxic Vacuolation Dohle Bodies PT INR APTT PTT Ratio ABG pH ABG pCO2 ABG pO2 ABG HCO3 ABG O2 Saturation ABG Base Excess Enzo Test Barometric Pressure Oxygen Given Sodium 128 L Potassium 4.1 Chloride 99 Carbon Dioxide 20 L Anion Gap 9.0 BUN 48 H Creatinine 1.66 H Est Cr Clr Drug Dosing 37.1 Est GFR ( Amer) 46.7 Est GFR (Non-Af Amer) 40.3 BUN/Creatinine Ratio 29.0 H Glucose 106 H Osmolality 288 Calcium 7.8 L Magnesium 2.6 H Total Bilirubin Direct Bilirubin AST ALT Alkaline Phosphatase Lactate Dehydrogenase Troponin I Total Protein Albumin Globulin Albumin/Globulin Ratio TSH Urine Color Urine Appearance Urine pH Ur Specific [place] Urine Protein Urine Glucose (UA) Urine Ketones Urine Blood Urine Nitrite Urine Bilirubin Urine Urobilinogen Ur Leukocyte Esterase Urine WBC (Auto) Urine RBC (Auto) U Hyaline Cast (Auto) U Epithel Cells (Auto) Urine Bacteria (Auto) Urine Mucus Urine Osmolality Ur Random Sodium Fluid Neutrophils % Fluid Lymphocytes % Fluid Eosinophils % Fluid [place] % Pleural Fluid Source Pleural Color Pleural Appearance Pleural pH Pleural WBC Pleural RBC Pleural Total Protein Pleural LDH Pleural Glucose Pleural Cholesterol Pleural Triglycerides Nasal Screen MRSA (PCR) IgG IgA IgM 12/23/19 12/23/19 12/23/19 06:09 06:09 06:09 WBC RBC Hgb Hct MCV MCH MCHC RDW Std Deviation RDW Coeff of Gucci Plt Count MPV Immature Gran % (Auto) Neut % (Auto) Lymph % (Auto) [place] % (Auto) Eos % (Auto) Baso % (Auto) Neut # (Auto) Lymph # (Auto) [place] # (Auto) Eos # (Auto) Baso # (Auto) Immature Gran # (Auto) Toxic Vacuolation Dohle Bodies PT INR APTT PTT Ratio ABG pH ABG pCO2 ABG pO2 ABG HCO3 ABG O2 Saturation ABG Base Excess Enzo Test Barometric Pressure Oxygen Given Sodium Potassium Chloride Carbon Dioxide Anion Gap BUN Creatinine Est Cr Clr Drug Dosing Est GFR ( Amer) Est GFR (Non-Af Amer) BUN/Creatinine Ratio Glucose Osmolality Calcium Magnesium Total Bilirubin Direct Bilirubin AST ALT Alkaline Phosphatase Lactate Dehydrogenase 140 Troponin I Total Protein 9.3 H Albumin Globulin Albumin/Globulin Ratio TSH Urine Color Urine Appearance Urine pH Ur Specific [place] Urine Protein Urine Glucose (UA) Urine Ketones Urine Blood Urine Nitrite Urine Bilirubin Urine Urobilinogen Ur Leukocyte Esterase Urine WBC (Auto) Urine RBC (Auto) U Hyaline Cast (Auto) U Epithel Cells (Auto) Urine Bacteria (Auto) Urine Mucus Urine Osmolality Ur Random Sodium Fluid Neutrophils % Fluid Lymphocytes % Fluid Eosinophils % Fluid [place] % Pleural Fluid Source Pleural Color Pleural Appearance Pleural pH Pleural WBC Pleural RBC Pleural Total Protein Pleural LDH Pleural Glucose Pleural Cholesterol Pleural Triglycerides Nasal Screen MRSA (PCR) IgG 4570.0 H IgA 34.2 L IgM 5.9 L 12/23/19 12/23/19 12/23/19 11:06 11:06 15:03 WBC RBC Hgb Hct MCV MCH MCHC RDW Std Deviation RDW Coeff of Gucci Plt Count MPV Immature Gran % (Auto) Neut % (Auto) Lymph % (Auto) [place] % (Auto) Eos % (Auto) Baso % (Auto) Neut # (Auto) Lymph # (Auto) [place] # (Auto) Eos # (Auto) Baso # (Auto) Immature Gran # (Auto) Toxic Vacuolation Dohle Bodies PT INR APTT PTT Ratio ABG pH ABG pCO2 ABG pO2 ABG HCO3 ABG O2 Saturation ABG Base Excess Enzo Test Barometric Pressure Oxygen Given Sodium Potassium Chloride Carbon Dioxide Anion Gap BUN Creatinine Est Cr Clr Drug Dosing Est GFR ( Amer) Est GFR (Non-Af Amer) BUN/Creatinine Ratio Glucose Osmolality Calcium Magnesium Total Bilirubin Direct Bilirubin AST ALT Alkaline Phosphatase Lactate Dehydrogenase 102 Troponin I Total Protein Albumin Globulin Albumin/Globulin Ratio TSH Urine Color Urine Appearance Urine pH Ur Specific [place] Urine Protein Urine Glucose (UA) Urine Ketones Urine Blood Urine Nitrite Urine Bilirubin Urine Urobilinogen Ur Leukocyte Esterase Urine WBC (Auto) Urine RBC (Auto) U Hyaline Cast (Auto) U Epithel Cells (Auto) Urine Bacteria (Auto) Urine Mucus Urine Osmolality Ur Random Sodium Fluid Neutrophils % Fluid Lymphocytes % Fluid Eosinophils % Fluid [place] % Pleural Fluid Source Pleural Color Pleural Appearance Pleural pH 6.71 L Pleural WBC Pleural RBC Pleural Total Protein Pleural LDH Pleural Glucose Pleural Cholesterol Pleural Triglycerides 19 Nasal Screen MRSA (PCR) IgG IgA IgM 12/23/19 12/23/19 Unknown Unknown WBC RBC Hgb Hct MCV MCH MCHC RDW Std Deviation RDW Coeff of Gucci Plt Count MPV Immature Gran % (Auto) Neut % (Auto) Lymph % (Auto) [place] % (Auto) Eos % (Auto) Baso % (Auto) Neut # (Auto) Lymph # (Auto) [place] # (Auto) Eos # (Auto) Baso # (Auto) Immature Gran # (Auto) Toxic Vacuolation Dohle Bodies PT INR APTT PTT Ratio ABG pH ABG pCO2 ABG pO2 ABG HCO3 ABG O2 Saturation ABG Base Excess Enzo Test Barometric Pressure Oxygen Given Sodium Potassium Chloride Carbon Dioxide Anion Gap BUN Creatinine Est Cr Clr Drug Dosing Est GFR ( Amer) Est GFR (Non-Af Amer) BUN/Creatinine Ratio Glucose Osmolality Calcium Magnesium Total Bilirubin Direct Bilirubin AST ALT Alkaline Phosphatase Lactate Dehydrogenase Troponin I Total Protein Albumin Globulin Albumin/Globulin Ratio TSH Urine Color Urine Appearance Urine pH Ur Specific [place] Urine Protein Urine Glucose (UA) Urine Ketones Urine Blood Urine Nitrite Urine Bilirubin Urine Urobilinogen Ur Leukocyte Esterase Urine WBC (Auto) Urine RBC (Auto) U Hyaline Cast (Auto) U Epithel Cells (Auto) Urine Bacteria (Auto) Urine Mucus Urine Osmolality Ur Random Sodium Fluid Neutrophils % 92 Fluid Lymphocytes % 1 Fluid Eosinophils % 2 Fluid [place] % 5 Pleural Fluid Source RIGHT LUNG Pleural Color TJ Pleural Appearance CLOUDY Pleural pH Pleural WBC 311736 Pleural RBC 27112 Pleural Total Protein 6.7 Pleural LDH 2071 Pleural Glucose < 1 Pleural Cholesterol Pending Pleural Triglycerides Nasal Screen MRSA (PCR) IgG IgA IgM
[2019-12-24] MEDS: LEVALBUTEROL 1.25MG/0.5ML NEB INH SCH ×4 (00:54→18:58)
[2019-12-24] MEDS: IPRATROPIUM BROMIDE NEB SOLN 0.02% 2.5 ML VIAL INH SCH ×4 (00:57→18:58)
[2019-12-24] MEDS: DORNASE ALFA 5 ML in SYRINGE 25 ML IPL SCH (03:23)
[2019-12-24] MEDS: ALTEPLASE, RECOMBINANT 10 MG in SYRINGE 50 ML IPL SCH ×2 (03:23→15:06)
[2019-12-24] MEDS: PIPERACILLIN/TAZOBACTAM 3.375 GM in DEXTROSE 5% 100 ML IV SCH ×3 (04:59→21:04)
--- NOTE | 2019-12-24 06:37 | XRay Report ---
XR chest 1V portable CLINICAL HISTORY: chest tube removal COMPARISON STUDY: Chest radiograph December 23, 2019 2:47 PM. FINDINGS: Right basilar pleural catheter has been removed. A small right apical pneumothorax is noted . A small right pleural effusion with right basilar opacity is unchanged. Cardiomegaly is noted. Ther e is no evidence for overt pulmonary edema. Right hilar fullness is unchanged. There is mild left bas ilar opacity. IMPRESSION: Interval removal of the right pleural catheter. Small right pneumothorax and small right pleural effu himanshu with persistent bibasilar opacities, greater on the right. ACT 112: Negative or not required by law. Electronically signed by: Bam Goodman M.D. 12/24/2019 6:36 AM
--- NOTE | 2019-12-24 07:37 | Hospitalist Progress Note ---
Date of Service December 24, 2019 Assessment & Plan (1) Acute hypoxemic respiratory failure: Secondary to bilateral pneumonia, right-sided pleural effusion, COPD exacerbation Currently comfortable on 4 L of oxygen via nasal cannula (not on home O2) Gram-negative rods and gram-positive cocci on sputum Gram stain obtained from [facility] in the ER.--> Follow-up CT chest: Moderate right pleural effusion, right lung atelectasis versus also lesion, bilateral perihilar peribronchial thickening and left lower lobe tree-in-bud airspace disease Linear atelectasis/mild consolidation left lower lobe and lingula MIST 2 protocol started Continue Zosyn, doxycycline Follow-up cultures from [place] [facility] Chronic diastolic heart failure (EF 60-65%, TTE 2019 ) Appears euvolemic Acute renal failure, likely secondary to underlying infection Baseline creatinine 1.1 Monitor Hypertension, stable Non-Hodgkin's lymphoma, possible initiation of therapy pending further discussion with [facility] oncologist as per patient Oncologist Dr. Loredo to be notified by NOAH Duffy Chronic hyponatremia likely secondary to malignancy Na 132--> 128 monitor Chronic anemia, hemoglobin at baseline DVT prophylaxis. Heparin subcu--> held in light of chest tube placement 12/23/2019 Resume heparin today Full code Disposition Lives at home with family Anticipate discharge to home when medically stable Labs checked ROS-No Headache, No Visual Changes, No Nausea, No Vomiting, No Fever, No Chills, No Neck Pain or Stiffness, No Chest Pain, No Palpitations, No SOB, No [place]OM[place], No Cough, No Sputum, No Wheezing, No Abdominal Pain, No Diarrhea, No Hematemesis, No Hemoptysis, No Unexpected Weight Loss, No Flank pain, No Melena, No Hematochezia, No Frequency, No Urgency, No Burning, No Hematuria, No Rashes, No Diaphoresis. Appetite is Normal Physical Exam Gen-AAO x 3, NAD, Afebrile Head-NCAT, EOMI, PERRLA, Anicteric Sclera, No Posterior Pharyngeal Erythema Neck-Supple, No JVD, No Thyromegaly, No Masses, No LAD, No Bruits Lungs-Clear to Auscultation Bilaterally, No Rales, No Rhonchi, No Wheezing, No Crepitus Chest-No S4, +S1, +S2, No S3, No Murmurs, No Rubs, No Gallops, No Ectopy, R pigtail catheter Abdomen-Soft, Bowel Sounds Present, Non Tender, Non Distended, No Hepatomegaly, No Splenomegaly, No Palpable Masses, No Rebound, No Rigidity, No Guarding Musculoskeletal-Full Range of Motion Bilaterally, No CVAT Extremities-No Cyanosis, No Clubbing, No Edema Nuero-Cranial Nerves II-XII grossly intact, Motor WNL, DTRs WNL, Strength WNL, Non Focal Psych-Normal Mood Admission and Anticipated Discharge Date Admission Date: December 22, 2019 Results & Data Results & Data ([facility]) Vital Signs (Past 12 Hours) Vital Signs Temp Pulse Pulse Resp BP Pulse Ox 12/24/19 07:26 87 12/24/19 07:20 84 20 98 12/24/19 07:00 36.4 C L 92 H 20 120/70 100 12/24/19 06:26 99 H 12/24/19 04:00 36.4 C L 87 20 111/72 100 12/24/19 02:28 66 20 132/76 98 12/24/19 00:58 91 H 16 99 12/23/19 23:00 36.5 C 92 H 20 122/74 95
[2019-12-24 08:00] LABS: BUN Creatinine Ratio 39.4 (10-20); Calcium 8.2 mg/dl (8.5-10.1); Creatinine Clr Calc Pharmacy 39.4 ml/min; Est GFR (African American) 50.3; Est GFR (Non-African American) 43.4; Potassium 3.9 mmol/L (3.5-5.1)
[2019-12-24] MEDS: FLUTICASONE/VILANTEROL 200/25MCG 14 PUFFS/INHALER INH SCH ×2 (08:19→21:05)
[2019-12-24] MEDS: AMLODIPINE BESYLATE 5 MG TAB PO SCH (08:19)
[2019-12-24] MEDS: predniSONE 20 MG TAB PO SCH (08:20)
[2019-12-24] MEDS: LIDOCAINE 5% 1 PATCH TD SCH (08:20)
[2019-12-24] MEDS: DOXYCYCLINE HYCLATE 100 MG CAP PO SCH ×2 (08:22→21:05)
--- NOTE | 2019-12-24 08:34 | XRay Report ---
XR chest 1V not portable CLINICAL HISTORY: Pneumothorax RIGHT PLEURAL EFFUSION COMPARISON STUDY: 12/24/2019 FINDINGS: There is a trace 3 mm right apical pneumothorax. The heart remains enlarged. There is a per sistent small right pleural effusion. There are bibasilar opacities, atelectasis versus infectious/in flammatory[ IMPRESSION: 1. No change from the preceding study 2. Tiny residual 3 mm right apical pneumothorax 3. Small right pleural effusion and bibasilar opacities ACT 112: Negative or not required by law. Electronically signed by: Jeremiah Breaux M.D. 12/24/2019 8:32 AM
[2019-12-24] MEDS ORDERED: METOPROLOL TARTRATE 1 MG/ML VIAL IV STA (08:47)
--- NOTE | 2019-12-24 09:15 | Consultation Report ---
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 HISTORY OF PRESENT ILLNESS: The patient is a pleasant 74-year-old gentleman well known to [facility], currently under my care for stage III fran marginal zone lymphoma. The patient was actually diagnosed in 07/2016. At that time, he had remained asymptomatic without B symptoms. I sent him for secondary consultation, Dr. Felix Alcantara at [facility] in [place] who agreed with my approach of continued observation. However, over the past several months, patient has been in and out of hospital because of pneumonia. His last PET scan also revealed a slight interval progression of the affected lymph node groups. Plans are underway to treat him with induction rituximab weekly x4 followed by maintenance q. 2 months rituximab. The patient was supposed to receive drug today. However, a couple of days ago, presented to [facility] with subacute onset shortness of breath. He was diagnosed with a COPD exacerbation and perhaps bilateral pneumonia complicated by empyema. The patient was to be transferred and rejected transferred to [facility] in favor of [facility] because of his physicians including myself are here locally. The patient has improved somewhat since thoracentesis. Fluid studies are underway and results pending. His oxygenation has improved. He is currently under a pulmonary's care. As mentioned prior this gentleman suffers from fran marginal zone lymphoma with monoclonality. 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 Once he is medically stable, we will plan to reschedule his initial dose of rituximab, which was due today. PAST MEDICAL HISTORY: Significant for COPD, marginal zone lymphoma, hypertension and mechanical dysphagia. PAST SURGICAL HISTORY: Negative. MEDICATIONS: Prior to admission, Tessalon Perles 100 mg p.o. b.i.d. p.r.n., hydroxyzine 10 mg p.o. q.i.d. p.r.n., ipratropium/albuterol 3 mL inhaled q. 6 hours p.r.n., amlodipine 5 mg p.o. b.i.d., Breo Ellipta 1 inhalation b.i.d. ALLERGIES: TO LISINOPRIL. SOCIAL HISTORY: The patient is and resides with his , currently retired. He does drink beer, wine and hard liquor on social occasions. FAMILY HISTORY: Mother succumbed to emphysema of the lung. Father succumbed from heart disease. REVIEW OF SYSTEMS: CONSTITUTIONAL: As per HPI, most notably for subacute onset shortness of breath. No fevers, chills or sweats presently. SKIN: No rashes or lesions. No history of dermatoses. HEENT: Denies headaches, lightheadedness or dizziness. No acute visual or hearing deficits. No sinus symptoms, sore throat. He does have mechanical dysphagia currently being evaluated. LYMPH: Positive for fran marginal zone lymphoma. CARDIAC: Negative for angina or palpitations. PULMONARY: He does suffer from COPD, status post thoracentesis. GASTROINTESTINAL: Negative for abdominal pain, nausea, vomiting, diarrhea or constipation, hematochezia or melena stools. GENITOURINARY: No hematuria, dysuria, urinary incontinence. PSYCHIATRIC: Negative for anxiety, depression or psychoses. ENDOCRINE: Negative for diabetes or thyroid disease. NEUROLOGIC: Negative for seizure, stroke, or migraine headache. HEMATOLOGIC: Positive for normocytic normochromic anemia. PHYSICAL EXAMINATION: GENERAL: A very pleasant 74-year-old sitting in bedside chair, awake, alert and appropriate. VITAL SIGNS: Temperature 36.4, pulse 87, respiratory rate 20, blood pressure 120/70. SKIN: Warm, dry, noncyanotic without petechia, rash or ecchymosis. HEENT: Atraumatic, normocephalic. Eyes: PERRLA, EOMI. Sclerae nonicteric. No conjunctival injection. Nares are patent without rhinorrhea or discharge. Throat clear. Tongue midline. Mucous membranes are moist. NECK: Supple without JVD or thyromegaly. HEART: Regular rate and rhythm. LUNGS: Scattered rhonchi heard in all velarde. ABDOMEN: Soft, nontender, nondistended. No palpable hepatosplenomegaly. EXTREMITIES: No calf tenderness or swelling. No clubbing, cyanosis or edema. NEUROLOGICALLY: He is awake, alert and oriented x3. Cranial nerves are grossly intact. LABORATORY DATA: Pending. Chest x-ray pending. IMPRESSION: 1. Acute hypoxemic respiratory failure. 2. Bilateral pneumonia. 3. Right-sided pleural effusion. 4. Fran marginal zone lymphoma with monoclonality. PLAN: I have been asked to render opinion regarding the patient's admission and care. This gentleman has been struggling with respiratory issues over the past several months. This is I believe his third hospitalization since beginning of 2019. The patient was diagnosed with non-Hodgkin's lymphoma 3 years ago. His disease was quite impressive on radiograph, however, remained asymptomatic. I then sent the patient for second opinion, Dr. Felix Alcantara at [facility] in [place] lymphoma expert and Dr. Alcantara had agreed to continue observation. However, now that he is having more difficulties with infection, thought it would be prudent to at least introduce induction rituximab to temporize his disease and maybe improve his immune response. 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 Thus, once treatment is underway we will monitor his IgG levels and perhaps offer him immunoglobulin supplementation along with rituximab moving forward. Appreciate pulmonary's efforts. According to the hospitalist's note, his cultures from [facility] are growing gram-negative rods or gram-positive cocci. Would continue appropriate antibiotics. Once the patient is medically stable, I plan to start induction rituximab. We will continue to follow the patient during his hospital stay. Thank you very much for allowing me to participate in his care.
[2019-12-24] MEDS ORDERED: STAT IV Infusion **Titration per Protocol STA (09:35)
[2019-12-24] MEDS ORDERED: dilTIAZem HCl 5 MG/ML 5 ML VIAL IV STA (09:35)
[2019-12-24] MEDS ORDERED: dilTIAZem HCL 125 MG in DEXTROSE 5% 100 ML IV SCH (09:45)
--- NOTE | 2019-12-24 10:24 | Pulmonology Progress Note ---
Date of Service December 24, 2019 Assessment & Plan (1) Parapneumonic effusion: 74-year-old male with a past medical history of B-cell lymphoma with significant mediastinal adenopathy, chronic right lower lobe infiltrates and complicated parapneumonic pleural effusion. I placed the chest tube yesterday and the patient underwent mist 2 protocol. Unfortunately, overnight the patient pulled out his chest tube inadvertently. Pleural ultrasound today demonstrates atelectasis in the right lower lobe with very minimal pleural effusion. I will send him for a CT of his chest to evaluate the right pleural space. Options potentially include expectant management with observation and antibiotic treatment, versus attempting placement of chest tube which will likely be very difficult as there is very minimal pleural fluid, versus transferring him to a tertiary care center for VATS procedure. We are still pending cytology. There is a remote chance that this pleural effusion may be related to his lymphoma. However, given the characteristics with the very low pH and the glucose less than 1, I am still very concerned of infection. Interestingly, the Gram stain was negative, however, the cultures are still pending. Continue Zosyn for the time being. His overall prognosis at this point is guarded. (2) Acute hypoxemic respiratory failure: (3) Mucus plugging of bronchi: (4) B-cell lymphoma: (5) Pneumonia: Admission and Anticipated Discharge Date Admission Date: December 22, 2019 Subjective Patient was apparently confused overnight. He pulled out his chest tube He noted significant pain after pulling out his chest tube. This morning, he was in A. fib RVR and he is being transferred to the PCU.. He is still requiring 4 L of oxygen. Currently saturating 98%. Denies any chest pain currently. No fevers. Review of Systems Review of Systems: All systems reviewed & are unremarkable except as noted in HPI & below Physical Exam Physical Exam: GENERAL : No acute distress EYES: No icterus. 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 Nasal cannula in place MOUTH: No lesions or candidiasis NECK: Supple LUNGS: Bibasilar rales. Decreased breath sounds on the right base. Some rhonchi at the bilateral upper velarde. HEART: Regular, rate controlled ABDOMEN: Soft, NT, ND, BS Present EXTREMITIES: Trace bilateral LE edema, pedal pulses intact and equal bilaterally NEURO: A&OX3. Patient is blind in the left eye. Results & Data Results & Data ([facility]) Vital Signs (Past 12 Hours) Vital Signs Temp Pulse Pulse Resp BP BP Pulse Ox 12/24/19 09:14 132 H 115/72 12/24/19 07:26 87 12/24/19 07:20 84 20 98 12/24/19 07:00 97.5 F L 92 H 20 120/70 100 12/24/19 06:26 99 H 12/24/19 04:00 97.5 F L 87 20 111/72 100 12/24/19 02:28 66 20 132/76 98 12/24/19 00:58 91 H 16 99 12/23/19 23:00 97.7 F 92 H 20 122/74 95 I personally reviewed vital signs, labs and chest imaging PG Care Time/CCT Total # of Minutes Spent Total Time Spent with Patient: Total time spent is greater than 50% in coordination of care (as documented) at patient's floor/unit and/or counseling patient: Coding Level of Care Code 98115 Subseq Hosp Care Lvl 3 Diagnoses Parapneumonic effusion J18.9; J91.8 Acute hypoxemic respiratory failure J96.01 Mucus plugging of bronchi J98.09 B-cell lymphoma C85.10 Pneumonia J18.9
[2019-12-24] MEDS ORDERED: hydrOXYzine HCl 10 MG TAB PO PRN (10:27)
[2019-12-24] MEDS ORDERED: BENZONATATE 100 MG CAPSULE PO PRN (10:27)
[2019-12-24] MEDS ORDERED: ALBUTEROL HFA 8 GM INHALER INH PRN (10:27)
--- NOTE | 2019-12-24 10:31 | Cardiology Consultation ---
Date of Consultation December 24, 2019 Assessment & Plan (1) Atrial fibrillation with rapid ventricular response: (2) Parapneumonic effusion: (3) Pleural effusion, right: (4) Acute hypoxemic respiratory failure: (5) B-cell lymphoma: (6) Multilobar lung infiltrate: New-onset atrial fibrillation with rapid ventricular response, asymptomatic. Given the patient's longstanding history of recurrent pulmonary issues I am actually rather surprised that this is his first episode of atrial fibrillation. 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 Again he denies any history of atrial fibrillation in the past. The pathophysiology and treatment options of atrial fibrillation were discussed with him at great lengths. At this point I believe the most prudent course of action will be to try and res tore normal sinus rhythm. Ideally I believe he would benefit from chemical cardioversion, however, given his multiple comorbidities this becomes slightly difficult. I do not believe he is a candidate for amiodarone given his lung issues. IV sotalol is not currently available So at this point I will start him on a Cardizem drip for rate control and initiate p.o. sotalol. We will check an echocardiogram once his rates are better controlled. I would like to hold off on anticoagulation for now given the recent traumatic removal of his chest tube and given the fact that he is been on monitor in sinus rhythm I feel more comfortable. He will follow sotalol loading protocol with daily EKGs and continuous telemetry monitoring. The medication along with its risks and benefits were discussed with him at great length and he is in agreement with initiation of medication. History of Present Illness Reason for Consultation: new onset afib with rvr Requesting Physician: Dr. Fall Attending Physician: Bethel Fall DO History of Present Illness Mr. Hansen is a very pleasant 74-year-old gentleman who routinely follows with [facility] cardiology for history of atrial tachycardia status post ablation. He presented to [facility] with acute onset of shortness of breath on 12/22/2019. He was found to be in hypoxic respiratory failure with bilateral pneumonia, right-sided pleural effusion and acute COPD exacerbation. He was admitted to telemetry and initiated on therapy for the above along with a chest tube insertion which, unfortunately, came out last night when the patient walked to the bathroom. He states that since admission his breathing has significantly improved but still does not feel great. He states he is feeling better but not at baseline. He denies experiencing any palpitations, chest pain, lightheadedness, dizziness or syncope. He went into atrial fibrillation with rapid ventricular response at 8:05 AM today and cardiology was consulted. This is a new diagnosis for him and again he denies any palpitations or worsening shortness of breath with the initiation of atrial fibrillation. Past medical history: 1. Atrial tachycardia status post radiofrequency ablation 2011 at [facility] in [place] 2. B-cell lymphoma 3. Recurrent pneumonia 4. Chronic cough 5. Recurrent pleural effusions 6. Minimal, nonobstructive carotid plaque. 7. Chronic anemia 8. Persistent hypocalcemia 9. History of asthma 10. GERD 11. Hypertension Allergies Allergy/AdvReac Type Severity Reaction Status Date / Time lisinopril AdvReac Mild cough Verified 12/23/19 01:35 Home Medications Home Medications Medication Instructions Recorded Confirmed Type Breo Ellipta 1 inh INHALATION BID 06/26/19 12/22/19 History ProAir RespiClick 1 inh INHALATION Q4H PRN 06/26/19 12/22/19 History amlodipine 5 mg PO BID 06/26/19 12/22/19 History ipratropium 0.5 mg-albuterol 3 mg 3 ml INH Q6H PRN #90 ml 07/08/19 12/22/19 Rx (2.5 mg base)/3 mL nebulization soln hydroxyzine HCl 10 mg tablet 10 mg PO QID PRN #30 tab 08/29/19 12/22/19 Rx benzonatate 100 mg capsule 100 mg PO BID PRN #90 cap 12/11/19 12/22/19 Rx Patient History Medical History Aspiration of food B-cell lymphoma Chronic airway disease Dysphagia HTN (hypertension) Parapneumonic effusion Surgical History No pertinent past surgical history Family History Mother Emphysema of lung Father Heart disease Social History Smoking Status: Never smoker Hx Alcohol Use: Yes Alcohol type: beer, wine and hard liquor Hx Substance Use: No Preferred Language: Mohawk Communication Ability: Effective Spray Mixer Required: No Beliefs That Will Affect Care: None Current Living Situation: Spouse Other Information That Helps Us Care for You: No Feels Safe at Home: Yes Safety Concerns: Feels Safe At This Time Review of Systems Review of Systems: All systems reviewed & are unremarkable except as noted in HPI & below Physical Exam Physical Exam: General: Awake, alert and oriented x 3. No acute distress. HEENT: Normocephalic, atraumatic. Pupils equal, round and reactive to light and accommodation. Extraocular muscles are intact. Anicteric sclera. Moist mucous membranes. Neck: No JVD. No bruit. Cardiovascular: irregularly irregular, unable to appreciate murmur, rub or gallop. Pulmonary: Very coarse breath sounds throughout with scattered rhonchi and bibasilar crackles. Abdomen: Bowel sounds x 4, soft. No rebound, guarding or tenderness. No organomegaly. Extremities: No clubbing, cyanosis or edema. +2 pedal pulses bilaterally. Skin: Warm and dry. Results & Data ([facility]) Vital Signs (Past 12 Hours) Vital Signs Temp Pulse Pulse Resp BP BP Pulse Ox 12/24/19 09:14 132 H 115/72 12/24/19 07:26 87 12/24/19 07:20 84 20 98 12/24/19 07:00 36.4 C L 92 H 20 120/70 100 12/24/19 06:26 99 H 12/24/19 04:00 36.4 C L 87 20 111/72 100 12/24/19 02:28 66 20 132/76 98 12/24/19 00:58 91 H 16 99 12/23/19 23:00 36.5 C 92 H 20 122/74 95 Laboratory Results Laboratory Results - last 24 hr 12/23/19 12/23/19 12/23/19 06:09 06:09 06:09 Sodium Potassium Chloride Carbon Dioxide Anion Gap BUN Creatinine Est Cr Clr Drug Dosing Est GFR ( Amer) Est GFR (Non-Af Amer) BUN/Creatinine Ratio Glucose Calcium Lactate Dehydrogenase 140 Total Protein 9.3 H Fluid Neutrophils % Fluid Lymphocytes % Fluid Eosinophils % Fluid Meso/Macro/Holt % Pleural Fluid Source Pleural Color Pleural Appearance Pleural pH Pleural WBC Pleural RBC Pleural Total Protein Pleural LDH Pleural Glucose Pleural Cholesterol Pleural Triglycerides IgG 4570.0 H IgA 34.2 L IgM 5.9 L 12/23/19 12/23/19 12/23/19 11:06 11:06 15:03 Sodium Potassium Chloride Carbon Dioxide Anion Gap BUN Creatinine Est Cr Clr Drug Dosing Est GFR ( Amer) Est GFR (Non-Af Amer) BUN/Creatinine Ratio Glucose Calcium Lactate Dehydrogenase 102 Total Protein Fluid Neutrophils % Fluid Lymphocytes % Fluid Eosinophils % Fluid Meso/Macro/Holt % Pleural Fluid Source Pleural Color Pleural Appearance Pleural pH 6.71 L Pleural WBC Pleural RBC Pleural Total Protein Pleural LDH Pleural Glucose Pleural Cholesterol Pleural Triglycerides 19 IgG IgA IgM 12/23/19 12/23/19 12/24/19 Unknown Unknown 06:58 Sodium 129 L Potassium 3.9 Chloride 101 Carbon Dioxide 21 Anion Gap 7.0 BUN 61 H Creatinine 1.56 H Est Cr Clr Drug Dosing 39.4 Est GFR ( Amer) 50.3 Est GFR (Non-Af Amer) 43.4 BUN/Creatinine Ratio 39.4 H Glucose 124 H Calcium 8.2 L Lactate Dehydrogenase Total Protein Fluid Neutrophils % 92 Fluid Lymphocytes % 1 Fluid Eosinophils % 2 Fluid Meso/Macro/Holt % 5 Pleural Fluid Source RIGHT LUNG Pleural Color TJ Pleural Appearance CLOUDY Pleural pH Pleural WBC 307057 Pleural RBC 25373 Pleural Total Protein 6.7 Pleural LDH 2071 Pleural Glucose < 1 Pleural Cholesterol Pending Pleural Triglycerides IgG IgA IgM Medications Administered Current Inpatient Medications Acetaminophen (Acetaminophen 325 Mg Tab) 650 mg PO Q4H PRN PRN Reason: Pain or Fever Stop: 01/21/20 22:30 Amlodipine Besylate (Amlodipine Besylate 5 Mg Tab) 2.5 mg PO DAILY [facility] Stop: 01/22/20 08:59 Last Admin: 12/24/19 08:19 Dose: 2.5 mg Documented by: Doxycycline Hyclate (Doxycycline Hyclate 100 Mg Cap) 100 mg PO BID VERONIKA Stop: 12/30/19 20:59 Last Admin: 12/24/19 08:22 Dose: 100 mg Documented by: Fluticasone/Vilanterol (Fluticasone/Vilanterol 200/25mcg 14 Puffs/Inhaler) 1 puffs INH BID VERONIKA Stop: 01/22/20 08:59 Last Admin: 12/24/19 08:19 Dose: 1 puffs Documented by: Heparin Sodium (Porcine) (Heparin Sod 5,000 Unit/0.5 Ml Vial) 5,000 units SQ Q8 VERONIKA Stop: 01/22/20 05:59 Last Admin: 12/23/19 13:14 Dose: Not Given Documented by: Hydromorphone HCl (Hydromorphone Inj 0.5 Mg/0.5 Ml Syr) 0.25 mg IV Q3H PRN PRN Reason: Pain Stop: 01/05/20 23:44 Last Admin: 12/23/19 19:27 Dose: 0.25 mg Documented by: Piperacillin Sod/Tazobactam (Sod 3.375 gm/ Dextrose) 115 mls @ 28.75 mls/hr IV Q8H VERONIKA; Protocol Stop: 12/30/19 03:59 Last Infusion: 12/24/19 09:01 Dose: Infused Documented by: Promethazine HCl 12.5 mg/ (Sodium Chloride) 50.5 mls @ 202 mls/hr IV Q6H PRN PRN Reason: Nausea And Vomiting Stop: 01/21/20 23:44 Alteplase, Recombinant 10 mg/ (Syringe) 60 mls @ 0.0006 mls/min IPL Q12H VERONIKA; Protocol Stop: 12/26/19 15:29 Last Admin: 12/24/19 03:23 Dose: Not Given Documented by: Dornase Shawn 5 ml/ Syringe 30 mls @ 0.0006 mls/min IPL Q12H VERONIKA; Protocol Stop: 12/26/19 16:29 Last Admin: 12/24/19 03:23 Dose: Not Given Documented by: Diltiazem HCl 125 mg/ Dextrose 125 mls @ 5 mls/hr IV .Q24H VERONIKA; Protocol Stop: 01/23/20 09:44 Ipratropium Roma (Ipratropium Roma Neb Soln 0.02% 2.5 Ml Vial) 0.5 mg INH Q6R VERONIKA Stop: 01/22/20 06:59 Last Admin: 12/24/19 07:16 Dose: 0.5 mg Documented by: Levalbuterol HCl (Levalbuterol 1.25mg/0.5ml Neb) 1.25 mg INH Q6R VERONIKA Stop: 01/22/20 06:59 Last Admin: 12/24/19 07:16 Dose: 1.25 mg Documented by: Lidocaine (Lidocaine 5% 1 Patch) 1 patch TD QAM [facility] Stop: 01/22/20 03:14 Last Admin: 12/24/19 08:20 Dose: 1 patch Documented by: Miscellaneous (Remove Lidoderm Patch) 1 ea N/A DAILY@2100 [facility] Stop: 01/22/20 20:59 Last Admin: 12/23/19 20:08 Dose: 1 ea Documented by: Miscellaneous Information (Piperacill/Tazobac Consult Active) 1 ea N/A UD PRN PRN Reason: Consult Stop: 01/21/20 22:33 Prednisone (Prednisone 20 Mg Tab) 40 mg PO DAILY [facility] Stop: 12/26/19 09:01 Last Admin: 12/24/19 08:20 Dose: 40 mg Documented by: Tramadol HCl (Tramadol Hcl 50 Mg Tablet) 25 - 50 mg PO Q4H PRN PRN Reason: Pain Stop: 01/21/20 22:33 Last Admin: 12/23/19 16:50 Dose: 25 mg Documented by:
[2019-12-24] MEDS ORDERED: POTASSIUM CHLORIDE 20 MEQ TABCR PO ONE (10:34)
--- NOTE | 2019-12-24 11:08 | CT Scan Report ---
CT OF THE CHEST WITHOUT IV CONTRAST CLINICAL HISTORY: Right effusion. Lymphoma. COMPARISON STUDY: PET/CT October 15, 2019. Chest CT October 09, 2019. Chest radiograph performed earlier to day. CT DOSE: 521.82 mGycm TECHNIQUE: Axial images of the chest were obtained without IV contrast. Images were reviewed in the axial, sagittal, and coronal planes. IV contrast was not administered for this examination. Automat ed exposure control was utilized for the study. A dose lowering technique was utilized adhering to t he principles of ALARA. FINDINGS: There is a trace right pneumothorax. There is no left pneumothorax. Trace right pleural ef fusion is noted. Extensive right lower lobe and right middle lobe airspace opacity has increased sinc e CT of October 19, 2019. Air bronchograms are noted. Extensive suspected secretions within the bronchus intermedius as well as the bronchi within the right middle and lower lobes has also increased. Multi focal airspace opacity within the lingula and left lower lobe with volume loss is again noted. Simila r findings were shown on prior examination. There is mild interlobular septal thickening. Moderate ca rdiomegaly is noted. Is no pericardial effusion. Enlarged bilateral axillary and mediastinal lymph no malik have moderately decreased in size since CT of October 09, 2019. Index left axillary lymph node on daniella ge 96 of 301 measures 1.2 cm in short axis diameter. It previously measured 1.6 cm. Right hilar adeno samir cannot be excluded on this unenhanced examination. There are no suspicious lesions within the b mary thorax. Old right rib fractures are noted. IMPRESSION: 1. Trace right pneumothorax and trace right pleural effusion. 2. Increase in extensive right middle lobe and right lower lobe airspace opacity with air bronchogram s since CT of October 09, 2019. The appearance favors pneumonia or aspiration. Increase in extensive susp ected secretions within the bronchus intermedius and segmental bronchi to the right lower and right m iddle lobes. 3. Moderate interval improvement in thoracic lymphadenopathy since exam of October 09, 2019. ACT 112: Negative or not required by law. Electronically signed by: Bam Goodman M.D. 12/24/2019 11:07 AM
--- NOTE | 2019-12-24 12:34 | Electrocardiogram Report ---
Test Reason : Blood Pressure : / mmHG Vent. Rate : 133 BPM Atrial Rate : 312 BPM P-R Int : 000 ms QRS Dur : 094 ms QT Int : 272 ms P-R-T Axes : 000 041 028 degrees QTc Int : 404 ms Atrial fibrillation with rapid ventricular response with premature ventricular or aberrantly conducte d complexes Abnormal ECG When compared with ECG of 22-DEC-2019 21:44, Atrial fibrillation has replaced Sinus rhythm Confirmed by Delmar Delacruz ([id number]) on 12/24/2019 12:34:32 PM Referred By: Sukumar Garcia Confirmed By:Delmar Delacruz
[2019-12-24] MEDS: SOTALOL HCL 80 MG TAB PO SCH ×2 (12:39→21:04)
[2019-12-24] MEDS: HEPARIN SOD 5,000 UNIT/0.5 ML VIAL SQ SCH ×2 (14:45→21:04)
[2019-12-24] MEDS ORDERED: CALCIUM CARBONATE 500 MG CHEWABLE TAB PO PRN (15:30)
[2019-12-25] MEDS: IPRATROPIUM BROMIDE NEB SOLN 0.02% 2.5 ML VIAL INH SCH ×4 (00:46→20:15)
[2019-12-25] MEDS: LEVALBUTEROL 1.25MG/0.5ML NEB INH SCH ×4 (00:47→20:15)
[2019-12-25] MEDS: HEPARIN SOD 5,000 UNIT/0.5 ML VIAL SQ SCH ×3 (06:16→21:01)
[2019-12-25] MEDS: PIPERACILLIN/TAZOBACTAM 3.375 GM in DEXTROSE 5% 100 ML IV SCH ×3 (06:16→21:11)
[2019-12-25 06:28] LABS: Hematocrit (blood only) 27.1 % (42-52); Hemoglobin 9.4 g/dL (14.0-18.0); Mean Corpuscular Hemoglobin 34.4 pg (25-34); Mean Corpuscular Hgb Conc 34.7 g/dL (32-36); Mean Corpuscular Volume 99.3 fL (80-100); Mean Platelet Volume 8.5 fL (7.4-10.4); Platelet Count 191 K/uL (130-400); RDW Coefficient of Variation 15.5 % (11.5-14.5); RDW Standard Deviation 56.6 fL (36.4-46.3); Red Blood Count 2.73 M/uL (4.7-6.1); White Blood Count 10.61 K/uL (4.8-10.8)
[2019-12-25 07:12] LABS: BUN Creatinine Ratio 46.5 (10-20); Calcium 8.1 mg/dl (8.5-10.1); Creatinine Clr Calc Pharmacy 37.1 ml/min; Est GFR (African American) 46.7; Est GFR (Non-African American) 40.3
--- NOTE | 2019-12-25 07:55 | Hospitalist Progress Note ---
Date of Service December 25, 2019 Assessment & Plan (1) Acute hypoxemic respiratory failure: Secondary to bilateral pneumonia, right-sided pleural effusion, COPD exacerbation Currently comfortable on 4 L of oxygen via nasal cannula (not on home O2) Gram-negative rods and gram-positive cocci on sputum Gram stain obtained from [facility] CT chest: Moderate right pleural effusion, right lung atelectasis versus also lesion, bilateral perihilar peribronchial thickening and left lower lobe tree-in-bud airspace disease Linear atelectasis/mild consolidation left lower lobe and lingula MIST 2 protocol started Continue Zosyn, doxycycline Chronic diastolic heart failure (EF 60-65%, TTE 2019 ) Appears euvolemic Acute renal failure, likely secondary to underlying infection Baseline creatinine 1.1 Monitor Hypertension, stable Non-Hodgkin's lymphoma, possible initiation of therapy pending further discussion with [facility] oncologist as per patient Oncologist Dr. Loredo to be notified by NOAH Duffy Chronic hyponatremia likely secondary to malignancy Na 132--> 128 monitor Chronic anemia, hemoglobin at baseline DVT prophylaxis. Heparin subcu Resume heparin Full code Disposition Lives at home with family Cards and Pulm input noted, await Path and Cx, [place] [facility] Labs checked ROS-No Headache, No Visual Changes, No Nausea, No Vomiting, No Fever, No Chills, No Neck Pain or Stiffness, No Chest Pain, No Palpitations, No SOB, No TOMLINSON, No Cough, No Sputum, No Wheezing, No Abdominal Pain, No Diarrhea, No Hematemesis, No Hemoptysis, No Unexpected Weight Loss, No Flank pain, No Melena, No Hematochezia, No Frequency, No Urgency, No Burning, No Hematuria, No Rashes, No Diaphoresis. Appetite is Normal Physical Exam Gen-AAO x 3, NAD, Afebrile Head-NCAT, EOMI, PERRLA, Anicteric Sclera, No Posterior Pharyngeal Erythema Neck-Supple, No JVD, No Thyromegaly, No Masses, No LAD, No Bruits Lungs-Rales on L, CTA R Chest-No S4, +S1, +S2, No S3, No Murmurs, No Rubs, No Gallops, No Ectopy, R pigtail catheter Abdomen-Soft, Bowel Sounds Present, Non Tender, Non Distended, No Hepatomegaly, No Splenomegaly, No Palpable Masses, No Rebound, No Rigidity, No Guarding Musculoskeletal-Full Range of Motion Bilaterally, No CVAT Extremities-No Cyanosis, No Clubbing, No Edema Nuero-Cranial Nerves II-XII grossly intact, Motor WNL, DTRs WNL, Strength WNL, Non Focal Psych-Normal Mood Admission and Anticipated Discharge Date Admission Date: December 22, 2019 Results & Data Results & Data ([facility]) Vital Signs (Past 12 Hours) Vital Signs Temp Pulse Resp BP Pulse Ox 12/25/19 07:01 68 18 93 12/25/19 03:54 36.5 C 60 16 110/69 96 12/25/19 00:49 64 16 96 12/24/19 23:12 36.4 C L 67 16 104/66 94 12/24/19 20:33 36.4 C L 68 18 102/62 99
[2019-12-25 08:05] LABS: Potassium 4.9 mmol/L (3.5-5.1)
--- NOTE | 2019-12-25 08:51 | Progress Notes ---
DATE: 12/25/2019 DIAGNOSES: 1. Acute hypoxemic respiratory failure. 2. Bilateral pneumonia with empyema. 3. Fran marginal zone lymphoma with monoclonality. SUBJECTIVE: The patient is awake and alert at bedside today. He definitely has noticed improvement in his breathing since thoracentesis. Reviewed pathology directly with Dr. Petra Gray explaining a pleural fluid contains a predominance of neutrophils and thus confirmed empyema not lymphomatous involvement. The patient continues broad-spectrum antibiotics. He offers no complaints of discomfort this morning. Nursing reports no overnight difficulties. OBJECTIVE: GENERAL: A very pleasant 74-year-old gentleman, awake, alert and appropriate, in no acute distress. VITAL SIGNS: Temperature 36.8, pulse 70, respiratory rate 20, blood pressure 115/75. SKIN: Without rash or lesion. HEENT: Oral mucosa without erythema or ulceration. HEART: Regular rate and rhythm. LUNGS: Scattered rhonchi throughout all velarde. ABDOMEN: Soft, nontender, nondistended. EXTREMITIES: No clubbing, cyanosis or edema. NEUROLOGIC: He is grossly intact. LABORATORY DATA: WBC count 10,610, hemoglobin 9.4, platelet count 191,000. Sodium 131, potassium is pending, chloride 104, carbon dioxide 19, creatinine 1.66, BUN 77. RADIOGRAPHIC DATA: A chest x-ray performed yesterday. Trace right pneumothorax and trace right pleural effusion, increase in extensive right middle lobe and right lower lobe airspace opacity with air bronchograms, appearance favors pneumonia and/or aspiration. Moderate interval improvement in thoracic lymphadenopathy. IMPRESSION: 1. Acute hypoxemic respiratory failure. 2. Bilateral pneumonia/empyema. 3. Fran marginal zone lymphoma with monoclonality. PLAN: The patient seems to be making progress. Approximately 1 liter of fluid was removed from his chest and pathology confirms empyema. I still plan to induce the patient with rituximab moving forward once he is medically stable. I would prefer to wait until he is discharged and follows up as outpatient. I agree with medical management otherwise perhaps daily chest x-ray to monitor the mild pneumothorax. Thank you for allowing me to participate in his care and will continue to follow closely with you.
--- NOTE | 2019-12-25 09:19 | XRay Report ---
XR chest 2V PA/lateral CLINICAL HISTORY: follow up effusion COMPARISON STUDY: Chest radiograph and chest CT December 24, 2019. FINDINGS: Tiny right apical pneumothorax has slightly decreased. A small right pleural effusion with right basilar opacity is unchanged. Mild left basilar opacity is noted. There is no evidence for pulm onary edema. Cardiomegaly is unchanged. There is no left pneumothorax. IMPRESSION: 1. Tiny right apical pneumothorax, slightly decreased since prior exam. 2. No change in a small right pleural effusion with persistent right basilar opacity. ACT 112: Negative or not required by law. Electronically signed by: Bam Goodman M.D. 12/25/2019 9:18 AM
[2019-12-25] MEDS: DOXYCYCLINE HYCLATE 100 MG CAP PO SCH ×2 (09:27→20:58)
[2019-12-25] MEDS: SOTALOL HCL 80 MG TAB PO SCH ×2 (09:27→20:57)
[2019-12-25] MEDS: LIDOCAINE 5% 1 PATCH TD SCH (09:27)
[2019-12-25] MEDS: predniSONE 20 MG TAB PO SCH (09:28)
[2019-12-25] MEDS: FLUTICASONE/VILANTEROL 200/25MCG 14 PUFFS/INHALER INH SCH ×2 (09:28→20:57)
--- NOTE | 2019-12-25 11:12 | Pulmonology Progress Note ---
Date of Service December 25, 2019 Assessment & Plan (1) Empyema, right: 74-year-old male with a past medical history of lymphoma, hypertension and chronic aspiration presenting to the hospital with an empyema on the right side. I obtained a CT of his chest yesterday which demonstrated very minimal residual fluid in the right lung. There continues to be consolidation right lung. Pleural fluid cultures are now growing Haemophilus influenza. Cultures are pending. Recommend continue IV antibiotics for the time being. He will need a total of 4 to 6 weeks of antibiotics which can be converted to p.o. as an outpatient depending on his pleural fluid cultures. Unfortunately, he did inadvertently pull out his chest tube 2 days ago, but it does seem that we were able to drain the vast majority of the pleural fluid. We will have to see how he does in the next few days to weeks clinically. It is my understanding that oncology is hoping to start him on rituximab for his lymphoma in the near future. He will need follow-up in the pulmonary clinic. At this point, pulmonary will continue to follow from the periphery. Please call with questions. (2) Multifocal pneumonia: (3) Acute hypoxemic respiratory failure: (4) B-cell lymphoma: Admission and Anticipated Discharge Date Admission Date: December 22, 2019 Subjective Patient seen and examined today. He was sleeping in his hospital bed today. When I woke him up, he denied any significant complaint today. He feels that he is slightly better since hospital admission. He is still fatigued. He notes that he is sleepy and he is trying to catch up on his sleep. He denies any chest pain currently. No fevers or chills overnight. Review of Systems Review of Systems: All systems reviewed & are unremarkable except as noted in HPI & below Physical Exam Physical Exam: GENERAL : No acute distress EYES: No icterus. 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 Nasal cannula in place MOUTH: No lesions or candidiasis NECK: Supple LUNGS: Bibasilar rales. Decreased breath sounds on the right base. Some rhonchi at the bilateral upper velarde. HEART: Regular, rate controlled ABDOMEN: Soft, NT, ND, BS Present EXTREMITIES: Trace bilateral LE edema, pedal pulses intact and equal bilaterally NEURO: A&OX3. Patient is blind in the left eye. Results & Data Results & Data ([facility]) Vital Signs (Past 12 Hours) Vital Signs Temp Pulse Pulse Resp BP Pulse Ox 12/25/19 08:00 67 12/25/19 07:52 98.2 F 70 20 115/75 95 12/25/19 07:01 68 18 93 12/25/19 03:54 97.7 F 60 16 110/69 96 12/25/19 00:49 64 16 96 12/24/19 23:12 97.5 F L 67 16 104/66 94 I personally reviewed vital signs, labs and imaging PG Care Time/CCT Total # of Minutes Spent Total Time Spent with Patient: Total time spent is greater than 50% in coordination of care (as documented) at patient's floor/unit and/or counseling patient: Coding Level of Care Code 68195 Subseq Hosp Care Lvl 3 Diagnoses Empyema, right J86.9 Multifocal pneumonia J18.9 Acute hypoxemic respiratory failure J96.01 B-cell lymphoma C85.10
--- NOTE | 2019-12-25 13:39 | Cardiology Progress Note ---
Date of Service December 25, 2019 Assessment & Plan (1) Atrial fibrillation with rapid ventricular response: (2) Parapneumonic effusion: (3) Pleural effusion, right: (4) Acute hypoxemic respiratory failure: (5) B-cell lymphoma: (6) Multilobar lung infiltrate: New-onset atrial fibrillation with rapid ventricular response, asymptomatic. Given the patient's longstanding history of recurrent pulmonary issues I am actually rather surprised that this is his first episode of atrial fibrillation. He does carry history of atrial tachycardia status post radiofrequency ablation and he does follow with his regular charge accounts audit clerk for this. Again he denies any history of atrial fibrillation in the past. Spontaneously converted on December 24, 2019 after being in atrial fibrillation for less than 12 hours. Tolerating sotalol well with stable QTC and no significant ventricular ectopy or arrhythmias. Given brief episode will hold off on anticoagulation at this time. Will need to continue monitoring on telemetry for 72 hours along with daily EKGs to follow QT interval. Echocardiogram shows significant tricuspid regurgitation and [id number] pulmonary hypertension Patient will follow up with primary charge accounts audit clerk as an outpatient. Admission and Anticipated Discharge Date Admission Date: December 22, 2019 Subjective Patient seen and examined, chart reviewed. States he is feeling much better today. States he is breathing easier and is almost back to baseline. Denies any chest pain, palpitations, lightheadedness, dizziness or syncope. Has been tolerating the medication well. Telemetry reviewed: spontaneous cardioversion to normal sinus rhythm last evening. No significant ventricular ectopy or sustained arrhythmias. EKG: Normal sinus rhythm with QTC of 444 milliseconds Review of Systems Review of Systems: All systems reviewed & are unremarkable except as noted in HPI & below Physical Exam Physical Exam: General: Awake, alert and oriented x 3. No acute distress. HEENT: Normocephalic, atraumatic. Pupils equal, round and reactive to light and accommodation. Extraocular muscles are intact. Anicteric sclera. Moist mucous membranes. Neck: No JVD. No bruit. Cardiovascular: Regular. Positive S-4. Normal S-1 and S-2. No S-3. No murmurs or rubs. Pulmonary: increased aeration with continued scattered rhonchi. Abdomen: Bowel sounds x 4, soft. No rebound, guarding or tenderness. No organomegaly. Extremities: No clubbing, cyanosis or edema. +2 pedal pulses bilaterally. Skin: Warm and dry. Results & Data ([facility]) Vital Signs (Past 12 Hours) Vital Signs Temp Pulse Pulse Resp BP BP Pulse Ox 12/25/19 13:20 65 20 93 12/25/19 11:51 36.8 C 72 18 108/76 95 12/25/19 08:00 67 12/25/19 07:52 36.8 C 70 20 115/75 95 12/25/19 07:01 68 18 93 12/25/19 03:54 36.5 C 60 16 110/69 96
[2019-12-26] MEDS: LEVALBUTEROL 1.25MG/0.5ML NEB INH SCH ×4 (01:40→19:18)
[2019-12-26] MEDS: IPRATROPIUM BROMIDE NEB SOLN 0.02% 2.5 ML VIAL INH SCH ×4 (01:40→19:18)
--- NOTE | 2019-12-26 05:27 | Electrocardiogram Report ---
Test Reason : Blood Pressure : / mmHG Vent. Rate : 066 BPM Atrial Rate : 066 BPM P-R Int : 200 ms QRS Dur : 086 ms QT Int : 424 ms P-R-T Axes : 047 062 052 degrees QTc Int : 444 ms Normal sinus rhythm Normal ECG When compared with ECG of 24-DEC-2019 09:04, Sinus rhythm has replaced Atrial fibrillation Vent. rate has decreased BY 67 BPM Confirmed by Rex Mason ([id number]) on 12/26/2019 5:27:22 AM Referred By: Sukumar Garcia Confirmed By:Rex Mason
[2019-12-26] MEDS: HEPARIN SOD 5,000 UNIT/0.5 ML VIAL SQ SCH ×3 (06:44→20:05)
[2019-12-26] MEDS: PIPERACILLIN/TAZOBACTAM 3.375 GM in DEXTROSE 5% 100 ML IV SCH ×3 (06:45→20:06)
--- NOTE | 2019-12-26 07:18 | XRay Report ---
XR chest 1V not portable CLINICAL HISTORY: Pneumothorax. Follow-up study. COMPARISON STUDY: 12/25/2019 FINDINGS: The heart remains enlarged. No residual pneumothorax is visualized. There is a small right pleural effusion similar in size to the prior study. There are bibasilar airspace opacities, atelecta tic versus infectious/inflammatory[ IMPRESSION: 1. No evidence of pneumothorax 2. Persistent small right pleural effusion 3. Persistent basilar opacities similar to the preceding study ACT 112: Negative or not required by law. Electronically signed by: Jeremiah Breaux M.D. 12/26/2019 7:17 AM
[2019-12-26] MEDS: SOTALOL HCL 80 MG TAB PO SCH ×2 (07:50→20:04)
[2019-12-26] MEDS: LIDOCAINE 5% 1 PATCH TD SCH (07:51)
[2019-12-26] MEDS: DOXYCYCLINE HYCLATE 100 MG CAP PO SCH ×2 (07:51→20:03)
[2019-12-26] MEDS: predniSONE 20 MG TAB PO SCH (07:51)
[2019-12-26] MEDS: FLUTICASONE/VILANTEROL 200/25MCG 14 PUFFS/INHALER INH SCH ×2 (07:51→20:03)
[2019-12-26 08:06] LABS: Hematocrit (blood only) 26.3 % (42-52); Hemoglobin 8.9 g/dL (14.0-18.0); Mean Corpuscular Hemoglobin 34.1 pg (25-34); Mean Corpuscular Hgb Conc 33.8 g/dL (32-36); Mean Corpuscular Volume 100.8 fL (80-100); Mean Platelet Volume 8.8 fL (7.4-10.4); Platelet Count 206 K/uL (130-400); RDW Coefficient of Variation 15.5 % (11.5-14.5); RDW Standard Deviation 57.2 fL (36.4-46.3); Red Blood Count 2.61 M/uL (4.7-6.1)
[2019-12-26 08:29] LABS: BUN Creatinine Ratio 46.6 (10-20); Calcium 8.6 mg/dl (8.5-10.1); Creatinine Clr Calc Pharmacy 54.9 ml/min; Est GFR (African American) 75.1; Est GFR (Non-African American) 64.8; Potassium 4.2 mmol/L (3.5-5.1)
--- NOTE | 2019-12-26 08:47 | Hospitalist Progress Note ---
Date of Service December 26, 2019 Assessment & Plan (1) Acute hypoxemic respiratory failure: Secondary to bilateral pneumonia, right-sided pleural effusion, COPD exacerbation Currently comfortable on 4 L of oxygen via nasal cannula (not on home O2) Gram-negative rods and gram-positive cocci on sputum Gram stain obtained from [facility] chest: Moderate right pleural effusion, right lung atelectasis versus also lesion, bilateral perihilar peribronchial thickening and left lower lobe tree-in-bud airspace disease Linear atelectasis/mild consolidation left lower lobe and lingula MIST 2 protocol started Continue Zosyn, doxycycline Chronic diastolic heart failure (EF 60-65%, TTE 2019 ) Appears euvolemic Acute renal failure, likely secondary to underlying infection Baseline creatinine 1.1 Monitor Hypertension, stable Non-Hodgkin's lymphoma, possible initiation of therapy pending further discussion with [facility] oncologist as per patient Oncologist Dr. Loredo to be notified by NOAH Duffy Chronic hyponatremia likely secondary to malignancy Na 132--> 128 monitor Chronic anemia, hemoglobin at baseline DVT prophylaxis. Heparin subcu Resume heparin Full code Disposition Lives at home with family Cards and Pulm input noted, need 4-6 weeks of IV abx, 72 hours of Sotalol needed, Ne[place] and [place] [facility] [place]x can be [place]. Labs checked ROS-No Headache, No Visual Changes, No Nausea, No Vomiting, No Fever, No Chills, No Neck Pain or Stiffness, No Chest Pain, No Palpitations, No SOB, No TOMLINSON, No Cough, No Sputum, No Wheezing, No Abdominal Pain, No Diarrhea, No Hematemesis, No Hemoptysis, No Unexpected Weight Loss, No Flank pain, No Melena, No Hematochezia, No Frequency, No Urgency, No Burning, No Hematuria, No Rashes, No Diaphoresis. Appetite is Normal Physical Exam Gen-AAO x 3, NAD, Afebrile Head-NCAT, EOMI, PERRLA, Anicteric Sclera, No Posterior Pharyngeal Erythema Neck-Supple, No JVD, No Thyromegaly, No Masses, No LAD, No Bruits Lungs-Rales on L, CTA R Chest-No S4, +S1, +S2, No S3, No Murmurs, No Rubs, No Gallops, No Ectopy, R pigtail catheter Abdomen-Soft, Bowel Sounds Present, Non Tender, Non Distended, No Hepatomegaly, No Splenomegaly, No Palpable Masses, No Rebound, No Rigidity, No Guarding Musculoskeletal-Full Range of Motion Bilaterally, No CVAT Extremities-No Cyanosis, No Clubbing, No Edema Nuero-Cranial Nerves II-XII grossly intact, Motor WNL, DTRs WNL, Strength WNL, Non Focal Psych-Normal Mood Admission and Anticipated Discharge Date Admission Date: December 22, 2019 Results & Data Results & Data ([facility]) Vital Signs (Past 12 Hours) Vital Signs Temp Pulse Resp BP Pulse Ox 12/26/19 07:14 66 18 96 12/26/19 07:00 36.4 C L 65 16 170/80 H 97 12/26/19 03:25 36.7 C 75 20 130/65 95 12/25/19 23:55 36.4 C L 71 16 134/74 97
--- NOTE | 2019-12-26 09:54 | Cardiology Progress Note ---
Date of Service December 26, 2019 Assessment & Plan (1) Atrial fibrillation with rapid ventricular response: (2) Parapneumonic effusion: (3) Pleural effusion, right: (4) Acute hypoxemic respiratory failure: (5) B-cell lymphoma: (6) Multilobar lung infiltrate: New-onset atrial fibrillation with rapid ventricular response, asymptomatic. Given the patient's longstanding history of recurrent pulmonary issues I am actually rather surprised that this is his first episode of atrial fibrillation. He does carry history of atrial tachycardia status post radiofrequency ablation and he does follow with his regular principal quality engineer for this. Again he denies any history of atrial fibrillation in the past. Spontaneously converted on December 24, 2019 after being in atrial fibrillation for less than 12 hours. Tolerating sotalol well with stable QTC and no significant ventricular ectopy or arrhythmias. Given brief episode will hold off on anticoagulation at this time. Will need to continue monitoring on telemetry for 72 hours along with daily EKGs to follow QT interval. Echocardiogram shows significant tricuspid regurgitation and [id number] pulmonary hypertension Patient will follow up with primary principal quality engineer as an outpatient. Admission and Anticipated Discharge Date Admission Date: December 22, 2019 Subjective Patient seen and examined, chart reviewed. States he is feeling well today. breathing close to baseline. Denies cp, palpitations, lightheadedness or dizziness. Telemetry reviewed: Normal sinus rhythm. No significant ventricular ectopy or sustained arrhythmias. EKG: Normal sinus rhythm with QTC of 445 milliseconds Review of Systems Review of Systems: All systems reviewed & are unremarkable except as noted in HPI & below Physical Exam Physical Exam: General: Awake, alert and oriented x 3. No acute distress. HEENT: Normocephalic, atraumatic. Pupils equal, round and reactive to light and accommodation. Extraocular muscles are intact. Anicteric sclera. Moist mucous membranes. Neck: No JVD. No bruit. Cardiovascular: Regular. Positive S-4. Normal S-1 and S-2. No S-3. No murmurs or rubs. Pulmonary: Clear to auscultation B/L. No rales, rhonchi or wheezing Abdomen: Bowel sounds x 4, soft. No rebound, guarding or tenderness. No organomegaly. Extremities: No clubbing, cyanosis or edema. +2 pedal pulses bilaterally. Skin: Warm and dry. Results & Data ([facility]) Vital Signs (Past 12 Hours) Vital Signs Temp Pulse Resp BP Pulse Ox 12/26/19 07:14 66 18 96 12/26/19 07:00 36.4 C L 65 16 170/80 H 97 12/26/19 03:25 36.7 C 75 20 130/65 95 12/25/19 23:55 36.4 C L 71 16 134/74 97
--- NOTE | 2019-12-26 14:55 | Electrocardiogram Report ---
Test Reason : Blood Pressure : / mmHG Vent. Rate : 069 BPM Atrial Rate : 069 BPM P-R Int : 192 ms QRS Dur : 086 ms QT Int : 416 ms P-R-T Axes : 051 045 025 degrees QTc Int : 445 ms Normal sinus rhythm Normal ECG When compared with ECG of 25-DEC-2019 07:16, No significant change was found Confirmed by Delmar Delacruz ([id number]) on 12/26/2019 2:54:38 PM Referred By: Sukumar Garcia Confirmed By:Delmar Delacruz
[2019-12-27] MEDS: IPRATROPIUM BROMIDE NEB SOLN 0.02% 2.5 ML VIAL INH SCH ×3 (00:33→13:30)
[2019-12-27] MEDS: LEVALBUTEROL 1.25MG/0.5ML NEB INH SCH ×3 (00:33→13:30)
[2019-12-27] MEDS: PIPERACILLIN/TAZOBACTAM 3.375 GM in DEXTROSE 5% 100 ML IV SCH (06:25)
[2019-12-27] MEDS: HEPARIN SOD 5,000 UNIT/0.5 ML VIAL SQ SCH (06:25)
[2019-12-27 07:26] LABS: Basophils # (auto) 0.01 K/uL (0-0.2); Basophils % (auto) 0.1 %; Eosinophils # (auto) 0.05 K/uL (0-0.5); Eosinophils % (auto) 0.6 %; Hematocrit (blood only) 27.6 % (42-52); Hemoglobin 9.4 g/dL (14.0-18.0); Immature Granulocytes # (auto) 0.18 K/uL (0.00-0.02); Immature Granulocytes % (auto) 2.2 %; Lymphocytes # (auto) 1.13 K/uL (1.2-3.4); Lymphocytes % (auto) 13.9 %; Mean Corpuscular Hemoglobin 33.6 pg (25-34); Mean Corpuscular Hgb Conc 34.1 g/dL (32-36); Mean Corpuscular Volume 98.6 fL (80-100); Mean Platelet Volume 8.7 fL (7.4-10.4); Monocytes # (auto) 1.43 K/uL (0.11-0.59); Monocytes % (auto) 17.5 %; Neutrophils # (auto) 5.35 K/uL (1.4-6.5); Neutrophils % (auto) 65.7 %; Nucleated RBC # (auto) 0.02 K/uL (0-0); Nucleated RBC % (auto) 0.3 %; Platelet Count 210 K/uL (130-400); RDW Coefficient of Variation 15.3 % (11.5-14.5); RDW Standard Deviation 55.4 fL (36.4-46.3); White Blood Count 8.15 K/uL (4.8-10.8)
[2019-12-27 07:32] LABS: INR 1.2 (0.9-1.1); Prothrombin Time 12.9 Seconds (9.0-12.0)
[2019-12-27 07:45] LABS: Albumin Level 1.9 gm/dl (3.4-5.0); BUN Creatinine Ratio 43.5 (10-20); Calcium 8.1 mg/dl (8.5-10.1); Creatinine Clr Calc Pharmacy 76.9 ml/min; Est GFR (African American) 102.7; Est GFR (Non-African American) 88.6; Potassium 4.2 mmol/L (3.5-5.1)
[2019-12-27 07:47] LABS: Albumin Globulin Ratio 0.4 (0.9-2); Bilirubin,Total 0.6 mg/dl (0.2-1); Globulin 5.2 gm/dl (2.5-4.0); Total Protein 7.1 gm/dl (6.4-8.2)
[2019-12-27] MEDS: SOTALOL HCL 80 MG TAB PO SCH (08:45)
[2019-12-27] MEDS: FLUTICASONE/VILANTEROL 200/25MCG 14 PUFFS/INHALER INH SCH (08:45)
[2019-12-27] MEDS: DOXYCYCLINE HYCLATE 100 MG CAP PO SCH (08:45)
[2019-12-27] MEDS: LIDOCAINE 5% 1 PATCH TD SCH (08:46)
--- NOTE | 2019-12-27 09:10 | Discharge Summary ---
Date of Service December 27, 2019 Admission HPI Per Admitting Provider History obtained from patient and records. Medical history significant for chronic diastolic heart failure (EF 60-65%, TTE 2019 ) hypertension, asthma/COPD/bronchiectasis as per records, non-Hodgkin's lymphoma, chronic hyponatremia, chronic anemia (baseline hemoglobin 9-10). Last confinement July 2019 for recurrent aspiration pneumonia post bronchoscopy. Patient had noted to have moderate pharyngeal dysphagia on outpatient VFS 2 months ago. No sandhya aspiration noted. Regular diet with thin liquids recommended with aspiration precautions. Patient seen on follow-up at [facility] Pulmonology office about 2 weeks ago for abnormal CAT scan findings. Impression was organizing pneumonia versus potential lymphoma involvement of the lower lobe. Pulmonary toilet recommended. Continued radiographic surveillance unless biopsy of right lower lobe required for therapy and management of beta cell lymphoma as per documentation. Plan to be coordinated with patient's medical oncologist. Patient returned home last night from dining out at a restaurant when he experienced pleuritic right-sided chest/back discomfort with worsening shortness of breath, usual cough symptoms productive of guillermo sputum as per patient. No known sick contacts. Patient denies recent aspiration event. Patient denies weight gain or leg swelling. He actually is losing weight. Worsening symptoms overnight. Patient brought to [facility] emergency room for evaluation. O2 sats noted to be 92 on 3 L., Patient tachycardic. CT chest initial read showed moderate right pleural effusion right lung with compressive atelectasis/consolidation. Bilateral perihilar/peribronchial thickening and left lower lobe tree-in-bud airspace disease. Mild consolidation left lower lobe and lingula. Pneumonitis versus superimposed CHF. Numerous slightly prominent mediastinal, bilateral axillary, supraclavicular lymph nodes. CAD, metabolic ossification. Distended gallbladder. Blood cultures obtained. Sputum cultures initial Gram stain showed moderate WBC, less than 10 epithelial cells, moderate gram-negative rods, few gram-positive cocci COVID-19 swab was negative. Lab work as follows : Hemoglobin, 9.7, hematocrit 28.6, WBC 10.3, platelets 283 Serum sodium 129, potassium 4.4, chloride 99, CO2 21, BUN 39, creatinine 2.3, glucose 92 Troponin less than 0.02 BNP 1080 (normal value 0-100) Patient given Lasix, Solu-Medrol, ceftriaxone, and azithromycin at the ER. Patient transferred to [facility] for specialist evaluation. 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 Admission Exam Per Admitting Provider GENERAL: Slightly uncomfortable, heart slightly hard of hearing, minimal respiratory distress SKIN: Pallor , warm HEENT: Pale palpebral conjunctivae, no ptosis, dry buccal mucosa, nasal cannula in place NECK : Supple, no tenderness CHEST : Decreased breath sounds, expiratory wheezes , no tenderness HEART : Tachycardic , no obvious murmurs ABDOMEN: Some distention, nontender EXTREMITIES : No LE swelling, no LE tenderness, no other conspicuous deformities noted NEUROLOGIC : Coherent, chronic facial asymmetry, mild hearing impairment, no other gross focality Principal Diagnosis Acute hypoxemic respiratory failure: Bilateral pneumonia with Empyema, right-sided pleural effusion, COPD exacerbation Acute renal failure, likely secondary to underlying infection Hypertension Non-Hodgkin's lymphoma, possible initiation of therapy pending further discussi on with [facility] oncologist as per patient Chronic hyponatremia likely secondary to malignancy Chronic anemia Discharge Exam See below Discharge Data Allergies Allergy/AdvReac Type Severity Reaction Status Date / Time lisinopril AdvReac Mild cough Verified 12/23/19 01:35 Consultations 12/22/19 22:32 Consult Pulmonology Routine 12/23/19 14:11 Consult Oncology Routine 12/24/19 08:40 Consult Cardiology Routine 12/26/19 08:47 Consult Infectious Diseases Routine 12/26/19 08:50 Consult Case Management - Discharge Planning Routine Ordered Studies 12/23/19 10:09 US point of care ultrasound Routine 12/23/19 10:31 US point of care ultrasound Urgent 12/24/19 09:27 US point of care ultrasound Urgent 12/24/19 10:22 CT chest wo con Urgent Current Diagnoses Unspecified B-cell lymphoma, unspecified site (12/22/19) Essential (primary) hypertension (12/22/19) Unspecified atrial fibrillation (12/22/19) Pneumonia, unspecified organism (12/22/19) Pyothorax without fistula (12/22/19) Pleural effusion, not elsewhere classified (12/22/19) Pleural effusion in other conditions classified elsewhere (12/22/19) Acute respiratory failure with hypoxia (12/22/19) Other diseases of bronchus, not elsewhere classified (12/22/19) Other nonspecific abnormal finding of lung field (12/22/19) Food in respiratory tract, part unspecified causing asphyxiation, initial encounter (12/22/19) Allergies lisinopril Adverse Reaction (Mild, Verified 12/23/19 01:35) cough Height/Weight/Isolation Height 5 ft 7 in Weight 75.9 kg Chemistry 12/26/19 12/27/19 07:25 07:02 Sodium 137 138 Potassium 4.2 4.2 Chloride 108 H 109 H Carbon Dioxide 23 25 Anion Gap 6.0 4.0 BUN 52 H 35 H Creatinine 1.12 D 0.80 D Glucose 86 82 Microbiology 12/23/19 Unknown Pleural Fluid Gram Stain - Final 12/23/19 Unknown Pleural Fluid Aerobic and Anaerobic Culture - Preliminary Haemo.influ betalactamase neg 12/23/19 02:35 Urine,Clean Catch Urine Culture - Final No growth - less than 1,000 colonies/mL. Hospital Course (1) Acute hypoxemic respiratory failure: Secondary to bilateral pneumonia, right-sided pleural effusion, COPD exacerbation Gram-negative rods and gram-positive cocci on sputum Gram stain obtained from [facility] CT chest: Moderate right pleural effusion, right lung atelectasis versus also lesion, bilateral perihilar peribronchial thickening and left lower lobe tree-in-bud airspace disease Linear atelectasis/mild consolidation left lower lobe and lingula MIST 2 protocol started Cipro x 4 weeks on DC Chronic diastolic heart failure (EF 60-65%, TTE 2019 ) Euvolemic Acute renal failure, likely secondary to underlying infection Baseline creatinine 1.1 Hypertension, stable Non-Hodgkin's lymphoma, possible initiation of therapy pending further discussion with [facility] oncologist as per patient Oncologist Dr. Loredo to be notified by NOAH Duffy Chronic hyponatremia likely secondary to malignancy Chronic anemia, hemoglobin at baseline Disposition Lives at home with family, DC today DC today after seen by cardio Labs checked ROS-No Headache, No Visual Changes, No Nausea, No Vomiting, No Fever, No Chills, No Neck Pain or Stiffness, No Chest Pain, No Palpitations, No SOB, No TOMLINSON, No Cough, No Sputum, No Wheezing, No Abdominal Pain, No Diarrhea, No Hematemesis, No Hemoptysis, No Unexpected Weight Loss, No Flank pain, No Melena, No Hematochezia, No Frequency, No Urgency, No Burning, No Hematuria, No Rashes, No Diaphoresis. Appetite is Normal Physical Exam Gen-AAO x 3, NAD, Afebrile Head-NCAT, EOMI, PERRLA, Anicteric Sclera, No Posterior Pharyngeal Erythema Neck-Supple, No JVD, No Thyromegaly, No Masses, No LAD, No Bruits Lungs-Rales on L, CTA R Chest-No S4, +S1, +S2, No S3, No Murmurs, No Rubs, No Gallops, No Ectopy, R pigtail catheter Abdomen-Soft, Bowel Sounds Present, Non Tender, Non Distended, No Hepatomegaly, No Splenomegaly, No Palpable Masses, No Rebound, No Rigidity, No Guarding Musculoskeletal-Full Range of Motion Bilaterally, No CVAT Extremities-No Cyanosis, No Clubbing, No Edema Nuero-Cranial Nerves II-XII grossly intact, Motor WNL, DTRs WNL, Strength WNL, Non Focal Psych-Normal Mood Total Time Total Time Spent Total Time Spent (In Minutes): 45 mins Total Time Includes: Examination of the Patient, Discharge Planning, Medication Reconciliation and Communication With Other Providers Discharge Plan Discharge Items Patient Disposition: Home - Self-Care Reason For Visit: LT SIDED PLEURAL EFFUSION,HYPOXIA,CHF Discharge Diagnosis: Acute hypoxemic respiratory failure: Bilateral pneumonia with Empyema, right-sided pleural effusion, COPD exacerbation Acute renal failure, likely secondary to underlying infection Hypertension Non-Hodgkin's lymphoma, possible initiation of therapy pending further discussion with [facility] oncologist as per patient Chronic hyponatremia likely secondary to malignancy Chronic anemia Condition on Discharge: Fair Activity: Resume your previous activity Lifting: Gradually increase as tolerated Bathing: No limitations Sexual Activity: When tolerated Exercise/Sports: Gradually increase as tolerated Driving/Machine Use: No limitations Weightbearing: Full weightbearing Non-emergency contact: Primary Care Provider, Arts Manager and Oncologist Call non-emergency contact if: you have any medication questions Follow-up/Referrals: Ronnie Loredo DO [Physician] - (Call Sunday for appt) Marshall Gaines MD [Physician] - (Call Sunday for appt) Doroteo Stein DO [Physician] - (Call For appt or as per Dr Stein) Charli Flowers [Primary Care Provider] - Herrera Fernandez II, DO [Physician] - (Call for first opening at [facility]) Diet: Heart Healthy Fluids: 1500ml (6 cups) Addtl Attending Provider Instructions: None Pending Studies at Discharge: Yes Studies:: Finish 72 of monitoring on Sotalol Stand-Alone Forms: [facility] TraceSecurity, Smoking Cessation Medications and DC Order Prescriptions: New sotalol 80 mg Tablet 80 mg PO BID Qty: 60 RF: 0 ciprofloxacin HCl 500 mg tablet 500 mg PO Q12H Qty: 90 RF: 0 Continued ipratropium-albuterol 0.5 mg-3 mg(2.5 mg base)/3 mL solution for nebulization 3 ml INH Q6H PRN (Reason: wheezing) Qty: 90 RF: 3 benzonatate 100 mg capsule 100 mg PO BID PRN (Reason: cough) Qty: 90 RF: 3 amlodipine 5 mg tablet 5 mg PO BID RF: 0 Breo Ellipta 200-25 mcg/dose blister with device 1 inh INHALATION BID RF: 0 ProAir RespiClick 90 mcg/actuation aerosol powdr breath activated 1 inh INHALATION Q4H PRN (Reason: Shortness Of Breath Or Wheezing) RF: 0 Discontinued hydroxyzine HCl 10 mg tablet 10 mg PO QID PRN (Reason: itching) Qty: 30 RF: 0 Discharge Orders: Discharge Order (Routine); Ordered 12/27/19 Ordered By: Bethel Fall Admission Data Admit Date/Time: 12/22/19 20:52 Attending Provider: Bethel Fall Admit Provider: Camilo Nolen Primary Care Provider: Charli Flowers Other Providers: Delmar Nieves ; Diogo Santo ; Trena Johnson ; Irineo Duffy ; Camilo Ackerman ; Marshall Gaines ; Demetrius Jackson ; Cee Whitaker ; Ronnie Loredo V. ; Doroteo Stein ; Ronnie Batres ; Sourav Salamanca ; Pratik Melo ; Abdullahi Omalley ; Triston George ; Siria Avalos ; Irma Howard ; Eusebio Hodge ; Jerson Elena ; Serene De ; Pradeep Valencia I. ; Herrera Fernandez II ; Terri Bynum ; Triston Choi
--- NOTE | 2019-12-29 08:54 | Electrocardiogram Report ---
Test Reason : Blood Pressure : / mmHG Vent. Rate : 061 BPM Atrial Rate : 061 BPM P-R Int : 180 ms QRS Dur : 090 ms QT Int : 428 ms P-R-T Axes : 068 069 062 degrees QTc Int : 430 ms Sinus rhythm with Premature supraventricular complexes Left atrial enlargement Borderline ECG When compared with ECG of 26-DEC-2019 06:38, Premature supraventricular complexes are now Present Confirmed by Kishore Colón ([id number]) on 12/29/2019 8:53:26 AM Referred By: Sukumar Garcia Confirmed By:Kishore Colón
--- NOTE | 2020-01-07 08:41 | Coding Query ---
CODING QUERY To promote full compliance with coding requirements relating to patient care, provider participation is requested in all cases of memorandum statement clerk uncertainty. Please assist us with the question(s) below: Coding Question(s): Patient admitted with acute respiratory failure/hypoxic, pneumonia, pleual effusion and empyema. Underlying lymphoma. Chest tube inserted during inpatient admission. Bilateral pneumonia diagnosed . Please document, if known or suspected, the specific type of Pneumonia that was treated. Thanks for your help! Chai Colón [facility] Physician's Response(s): Patient had an empyema sec to Haemophilus Influenza Bacteria Principal Diagnosis: "that condition established after study, to be chiefly responsible for occasioning the admission of the patient to the hospital for care." Co-Existing Principal Diagnosis: "when two or more diagnoses equally meet the criteria for principal diagnosis as determined by the circumstances of admission, diagnostic work up, and/or therapy provided, and the Alphabetic Index, Tabular List, or another coding guideline does not provide sequencing direction, any one of the diagnoses may be sequenced first." "When the physician has documented what appears to be a current diagnosis in the body of the record, but has not included the diagnosis in the final diagnostic statement, the physician should be asked whether the diagnosis should be added." (Source Coding Clinic 2 QTR90. p3-4) ROELD
== END 2019-12-27 15:10 | disposition home or self-care (01) | DRG 177 ==
LOC: 2N 20:52 → SUATTDRO 20:52 → 2S 12-24 09:36